=== PATIENT | male | born 1955 | race Caucasian/White ===

== ENCOUNTER 2019-11-28 15:12 | Outpatient (CLI) | payer OTHER, SELFPAY ==
--- NOTE | ~2019-11-28 | US_ITS ---
EXAMINATION: US thyroid EXAM DATE: 11/28/2019 16:13 INDICATION: Thyroid nodule follow-up. TECHNIQUE: Multiple grayscale and Doppler images of the thyroid were obtained (by a technologist who performed the scan) and subsequently reviewed. Individual nodules and recommendations may be reporte d in accordance with TI-RADS system as designated by the 2017 ACR White Paper TI-RADS committee. Comp silviano is made to prior examination from 04/22/2019. FINDINGS: The right thyroid lobe measures 5.5 x 2.5 x 2.2 cm, the left measuring 4.2 x 1.8 x 1.7 cm. These dime nsions are mildly enlarged. There is diffusely heterogeneous thyroid echogenicity. There are several thyroid nodules, largest in the left side. Largest left thyroid lobe nodule is hypervascular, in lower pole measures 1.8 x 1.3 x 1.5 centimeters , solid (2 points), hypoechoic (2 points), wider than tall, smooth margin, without echogenic foci, ca tegory TR4 for this nodule. Previous dimensions provided at 1.7 x 1.7 x 1.3, not significantly thompson ed accounting for differences in technique. This nodule was previously biopsied, correlate with those results. IMPRESSION: 1. Multinodular goiter, unchanged. 2. Largest left thyroid nodule has been previously biopsied. Reviewed, dictated and finalized at location A.
== END 2019-11-28 15:13 | disposition home or self-care (01) ==
PROVIDERS: PCP Emergency Medicine
DX: E04.2 Nontoxic multinodular goiter (principal)
CPT/HCPCS: 76536

== ENCOUNTER → 2020-02-27 08:37 | Outpatient (CLI) | payer OTHER, SELFPAY ==
--- NOTE | ~2020-02-27 | XR_ITS ---
EXAMINATION: XR_CERV2-3V_CR DATE: 02/27/2020 08:46 INDICATION: Neck pain. TECHNIQUE: 3 views of cervical spine were obtained. COMPARISON: CT cervical spine 04/03/2019 FINDINGS: There is 4 degrees dextrocurvature of cervical spine. Vertebral body heights are normal. Th ere is moderately decreased disc height at C6-C7. At C6-C7, there is severe right and mild left uncov ertebral joint osteoarthritis. At C4-C5, there is moderate left uncovertebral joint osteoarthritis. T here is severe facet joint osteoarthritis at C7-T1. There is mild central canal stenosis at C6-C7. No prevertebral soft tissue swelling. IMPRESSION: 1. Stable moderate cervical spondylosis. Reviewed, dictated and finalized at location B.
== END ==
PROVIDERS: PCP Emergency Medicine; Visit Provider Emergency Medicine
DX: M47.892 Other spondylosis, cervical region (principal)
CPT/HCPCS: 72040

== ENCOUNTER → 2020-03-19 14:59 | Outpatient (CLI) | payer OTHER, SELFPAY ==
--- NOTE | ~2020-03-19 | MR_ITS ---
EXAMINATION: MR cervical spine wo con DATE: 03/19/2020 15:42 INDICATION: Neck pain. TECHNIQUE: Magnetic resonance imaging (MRI) of the cervical spine was performed without intravenous c ontrast. Sequences included sagittal T2-weighted FSE, sagittal STIR FSE, sagittal T1-weighted FSE, ax ial MERGE, and axial T2-weighted FSE. COMPARISON: Cervical spine radiographs 02/27/2020 FINDINGS: There is 3 degrees dextrocurvature of cervical spine. Vertebral body heights are normal. Th ere is mildly decreased disc height at C6-C7. The spinal cord signal intensity is normal. There are n odules in the thyroid measuring up to 14 mm, likely not clinically significant. The following disc le vels are specifically discussed: C2-C3: The disc does not extend beyond the endplate margin. There is no uncovertebral joint osteoarth ritis. There is mild bilateral facet joint osteoarthritis. There is no neural foraminal stenosis. The re is no central canal stenosis. C3-C4: The disc is bulging. There is mild bilateral uncovertebral joint osteoarthritis. There is mild right and severe left facet joint osteoarthritis. There is mild left neural foraminal stenosis. Ther e is mild central canal stenosis. C4-C5: The disc is bulging. There is mild bilateral uncovertebral joint osteoarthritis. There is mild bilateral facet joint osteoarthritis. There is no neural foraminal stenosis. There is mild central c anal stenosis. C5-C6: The disc is bulging. There is mild bilateral uncovertebral joint osteoarthritis. There is mild bilateral facet joint osteoarthritis. There is no neural foraminal stenosis. There is mild central c anal stenosis. C6-C7: The disc is bulging and has an annular fissure. There is mild bilateral uncovertebral joint os teoarthritis. There is no facet joint osteoarthritis. There is no neural foraminal stenosis. There is mild central canal stenosis. C7-T1: The disc does not extend beyond the endplate margin. There is no uncovertebral joint osteoarth ritis. There is severe bilateral facet joint osteoarthritis. There is mild right neural foraminal liset nosis. There is no central canal stenosis. IMPRESSION: 1. Mild cervical spondylosis. Reviewed, dictated and finalized at location A.
== END ==
PROVIDERS: PCP Emergency Medicine; Visit Provider Nurse Practitioner Adult Health
DX: M47.22 Other spondylosis with radiculopathy, cervical region (principal)
CPT/HCPCS: 72141

== ENCOUNTER → 2020-04-06 13:41 | Outpatient (CLI) | payer OTHER, SELFPAY ==
--- NOTE | ~2020-04-06 | MR_ITS ---
. EXAMINATION: MR lumbar spine wo con DATE: 04/06/2020 14:11 INDICATION: Low back pain. TECHNIQUE: Magnetic resonance imaging (MRI) of the lumbar spine was performed without intravenous con trast. Sequences included sagittal T2-weighted FSE, sagittal T2-weighted FS FSE, sagittal T1-weighted FSE, and axial T2-weighted FSE. COMPARISON: None FINDINGS: There is 3 degrees levocurvature of lumbar spine. There is 3 mm retrolisthesis of L4 on L5. There is mild chronic anterior wedging of T11 and T12 vertebral bodies. There is mildly decreased di sc height at L2-L3 and severely decreased disc height at L4-L5 and L5-S1. The distal spinal cord sign al intensity is normal. The conus medullaris is at T12-L1. There is a 2.9 cm cyst in left kidney. The following disc levels are specifically discussed: L1-L2: The disc does not extend beyond the endplate margin. There is mild left facet joint osteoarthr itis. There is no neural foraminal stenosis. There is no central canal stenosis. L2-L3: The disc is bulging. There is mild left facet joint osteoarthritis. There is mild bilateral ne ural foraminal stenosis. There is mild central canal stenosis. L3-L4: The disc is bulging and has an annular fissure. There is severe right and moderate left facet joint osteoarthritis. There is mild bilateral neural foraminal stenosis. There is mild central canal stenosis. L4-L5: The disc is bulging and has an annular fissure. There is moderate left facet joint osteoarthri tis. There is mild bilateral neural foraminal stenosis. There is mild central canal stenosis. L5-S1: The disc is bulging and has an annular fissure. There is mild bilateral facet joint osteoarthr itis. There is mild bilateral neural foraminal stenosis. There is mild central canal stenosis. IMPRESSION: 1. Severe lumbar spondylosis. Reviewed, dictated and finalized at location A.
== END ==
PROVIDERS: Visit Provider Nurse Practitioner Adult Health
DX: M47.896 Other spondylosis, lumbar region (principal)
CPT/HCPCS: 72148

== ENCOUNTER 2020-04-28 15:36 | Emergency (ER) | payer OTHER, SELFPAY ==
--- NOTE | ~2020-04-28 | CT_ITS ---
EXAMINATION: CT brain wo con INDICATION: Headache COMPARISON: 04/01/2019 TECHNIQUE: Standard unenhanced head CT. The dose-length product (DLP) was 605.33 mGy-cm. The mA was a djusted according to patient size. Iterative reconstruction technique was employed. FINDINGS: There is no intracranial hemorrhage, acute infarction, or abnormal mass lesion. The ventric les are normal. There is no abnormal mass effect or midline shift. The restrepo-white matter differentiat ion is normal. The basal cisterns are patent. The orbits are normal. The paranasal sinuses, mastoids and calvarium are normal. IMPRESSION: 1. No acute intracranial abnormality. Reviewed, dictated and finalized at location A.
[2020-04-28 16:11] VITALS: BP 172/87; PULSE 70; RESP 18; TEMP 36.7; O2SAT 98
--- NOTE | 2020-04-28 17:40 | ED.HA ---
HPI - Headache General Chief Complaint: Headache Stated Complaint: throbbing pain in head . Time Seen by Provider: 04/28/20 17:40 Source: patient and family Mode of arrival: ambulatory Limitations: no limitations History of Present Illness HPI Narrative: Patient is a 64-year-old male with a history of hyperlipidemia who presents for evaluation of right-sided headache pain. Patient reports an intermittently throbbing sensation over his right ear that is mild in nature. Patient does report some increased pain with chewing that he has noticed. He denies any ear ringing, loss of hearing, ear pain or discharge. No visual changes, eye tearing or watering. No forehead headache or posterior headache pain. Patient denies any numbness or weakness. Patient states he can reproduce the pain when he presses on that location above his right ear. He denies any chest pain or shortness of breath. No shoulder pain. No back pain. Related Data Allergies Allergy/AdvReac Type Severity Reaction Status Date / Time No Known Allergies Allergy Verified 04/28/20 17:33 Review of Systems Review of Systems: Narrative: CONSTITUTIONAL: Denies fever, chills, or sweats. EYES: Denies visual changes, redness, or discharge. ENT: Denies rhinorrhea, congestion, sore throat, or otalgia. CARDIOVASCULAR: Denies chest pain, palpitations, or edema. RESPIRATORY: Denies cough or dyspnea. GASTROINTESTINAL: Denies abdominal pain, nausea, vomiting SKIN: Denies rash or itching. MUSCULOSKELETAL: Denies back pain, joint pain, or myalgia. NEUROLOGIC: Reports right-sided headache pain, denies numbness, or weakness. FOR[facility]LY [facility] Past Medical History Medical History (Updated 04/28/20 @ 19:46 by Marina Best MD) HLD (hyperlipidemia) Social History Social History Smoking status: Never smoker Second hand tobacco smoke exposure: No Alcohol intake: current Exam Narrative: Exam Narrative: GENERAL: Awake, alert, conversant HEAD: Normocephalic, atraumatic. EYES: PERRLA and EOMI. ENT: Nares clear, no rhinorrhea or epistaxis. Mucous membranes moist. NECK: Supple. CHEST: No respiratory distress, breathing even and non labored HEART: Regular rate, sinus rhythm ABDOMEN:Non distended, non tender EXTREMITIES: Normal range of motion. No edema. SKIN: Warm, dry, no rash. NEURO:No focal deficits. Alert and oriented x3. EOMs intact without nystagmus. No facial droop/asymmetry noted bilaterally. Grimace intact. Intact sensation in face. Hearing intact bilaterally. Shoulder shrug intact. Strength 5/5 bilateral upper extremities. Strength 5/5 bilateral lower extremities.AMbulatory with a narrow based steady gait. Course Vital Signs Vital signs: Vital Signs Temperature 36.7 C 04/28/20 16:11 Pulse Rate 70 04/28/20 16:11 Respiratory Rate 18 04/28/20 16:11 Blood Pressure 172/87 H 04/28/20 16:11 Pulse Oximetry 98 04/28/20 16:11 Temperature 36.7 C 04/28/20 16:11 Pulse Rate 50 L 04/28/20 19:07 Respiratory Rate 18 04/28/20 19:07 Blood Pressure 172/97 H 04/28/20 19:07 Pulse Oximetry 99 04/28/20 19:07 MDM - Headache MDM Narrative Medical decision making narrative: Patient presented for evaluation of headache pain. At the time of assessment, pain is reproducible on pressing on the right restorationism. No overlying erythema. No pulsations. Patient without any anginal type symptoms. Laboratory results including inflammatory markers are reassuring. This will be less consistent with temporal arteritis. Given location and quality of the pain, he would definitely require a biopsy to rule this out and I did speak with his primary care physician regarding this. Patient's blood pressure is also mildly elevated, I am not quite certain that reproducible right-sided temporal headache pain could be caused by hypertension, he does not appear to be having other symptoms that are concerning for hypertensive crisis or ur
[2020-04-28 18:30] LABS: Basophils Absolute Auto 0.1 K/mm3 (0.0-0.1); Basophils Percent Auto 0.6 % (0.2-1.2); Eosinophils Absolute Auto 0.3 K/mm3 (0-0.3); Eosinophils Percent Auto 2.7 % (0-4.4); Hematocrit 44.7 % (42.0-52.0); Hemoglobin 14.9 g/dL (14.0-18.0); Immature Granulocyte Absolute 0.04 K/mm3 (0.00-0.031); Immature Granulocyte Percent A 0.4 % (0-0.5); Lymphocytes Absolute Auto 2.83 K/mm3 (0.9-3.2); Lymphocytes Percent Auto 29.9 % (18.3-44.2); Mean Corpuscular HGB Conc 33.3 g/dl (32-36); Mean Corpuscular Hemoglobin 30.1 pg (26-34); Mean Corpuscular Volume 90.3 fl (80-100); Monocytes Absolute Auto 0.6 K/mm3 (0.1-0.6); Monocytes Percent Auto 6.1 % (2.6-8.5); Neutrophils Absolute Auto 5.7 K/mm3 (1.3-6.7); Neutrophils Percent Auto 60.3 % (45.5-73.1); Platelet Count Result 249 k/mm3 (150-375); Red Blood Count 4.95 M/mm3 (4.6-6.20); Red Cell Distribution Width 12.2 % (11.5-14.5); White Blood Count 9.5 K/mm3 (4.5-10.0)
[2020-04-28 18:41] LABS: Anion Gap 7 mmol/L (8-16); Blood Urea Nitrogen 16 mg/dL (9-20); Calcium 9.1 mg/dL (8.4-10.2); Carbon Dioxide 27 mmol/L (22-30); Chloride 104 mmol/L (98-107); Estimated CRCL calculation 113 ml/min; Estimated Glomerular Filt Rate > 60; Glucose 100 mg/dL (75-110); Potassium 4.4 mmol/L (3.4-5.0); Sodium 138 mmol/L (137-145)
[2020-04-28 18:55] LABS: Erythrocyte Sedimentation Rate 2 mm/hr (0-20)
[2020-04-28 19:07] VITALS: BP 172/97; PULSE 50; RESP 18; O2SAT 99
[2020-04-28 19:08] LABS: CRP 0.5 mg/dL (<1.0)
[2020-04-28 19:57] VITALS: BP 170/82; PULSE 51; RESP 16; TEMP 36.6; O2SAT 100
== END 2020-04-28 20:00 | disposition home or self-care (01) ==
PROVIDERS: Emergency Provider Emergency Medicine; PCP Emergency Medicine
DX: R51.9 Headache, unspecified (principal); E78.5 Hyperlipidemia, unspecified
CPT/HCPCS: 36415; 70450; 80048; 85025; 85652; 86140; 99284

== ENCOUNTER → 2020-06-06 07:32 | Outpatient (CLI) | payer OTHER, SELFPAY ==
--- NOTE | ~2020-06-06 | US_ITS ---
EXAMINATION: US carotid duplex BI EXAM DATE: 06/06/2020 08:06 INDICATION: R09.89 - Other specified symptoms and signs involving the circulatory and respiratory sys tems . States pressure and pulse sedation on right side of head temporal area. Feet numbness and ting ling. TECHNIQUE: Grayscale, color and pulsed Doppler images of the cervical carotid arteries were obtained . The degree of vessel stenosis is placed in one of the following categories: normal, <50% stenosis, 50-69% stenosis, >=70% stenosis but less than near-occlusion, near-occlusion, or occlusion. Note that percent stenosis relative to normal distal artery lumen diameter is indirectly measured from velocit y measurements as described by Dung, et al. Radiology 2003; 229:340-346. There is no prior study fo r comparison. FINDINGS: RIGHT SIDE: Right common carotid artery peak systolic velocity (PSV in cm/s): 190 Right bulb/internal carotid artery peak systolic velocity (PSV in cm/s): 74 Right internal carotid artery end diastolic velocity (EDV in cm/s): 18 Right ICA/CCA peak systolic ratio: 0.4 Right external carotid artery peak systolic velocity (PSV in cm/s): 128 Right vertebral artery antegrade flow: yes There is no focal plaque identified. LEFT SIDE: Left common carotid artery peak systolic velocity (PSV in cm/s): 126 Left bulb/internal carotid artery peak systolic velocity (PSV in cm/s): 104 Left internal carotid artery end diastolic velocity (EDV in cm/s): 25 Left ICA/CCA peak systolic ratio: 0.8 Left external carotid artery peak systolic velocity (PSV in cm/s): 168 Left vertebral artery antegrade flow: yes There is no focal plaque identified. IMPRESSION: 1. Normal right internal carotid artery. 2. Normal left internal carotid artery. > Reviewed, dictated and finalized at location A. [employer]ING [employer]PER[employer]
== END ==
PROVIDERS: Visit Provider Emergency Medicine
DX: R09.89 Other specified symptoms and signs involving the circulatory and respiratory systems (principal)
CPT/HCPCS: 93880

== ENCOUNTER 2020-11-09 20:36 | Emergency (ER) | payer OTHER, SELFPAY ==
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
[2020-11-09 20:39] VITALS: BP 167/78; PULSE 99; RESP 15; TEMP 35.9; O2SAT 100
[2020-11-09 22:29] VITALS: BP 144/82; PULSE 88; RESP 18; TEMP 36.7; O2SAT 100
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
--- NOTE | 2020-11-09 22:40 | PC.NURSE ---
Pt to CT.
--- NOTE | 2020-11-09 22:59 | ECG_ITS ---
Measurements Intervals [place] Rate: 72 P: 55 FL: 177 QRS: 19 QRSD: 114 T: 43 QT: 380 QTc: 416 Interpretive Statements SINUS RHYTHM INCOMPLETE RIGHT BUNDLE BRANCH BLOCK VOLTAGE CRITERIA FOR LVH CONSIDER INFERIOR INFARCT, AGE INDETERMINATE BASELINE ARTIFACT- I, II, III, AVR, AVL, AVF ABNORMAL ECG Electronically Signed On 11-10-2020 6:54:09 CDT by Nathan Medina D.O.
[2020-11-09] MEDS: ONDANSETRON INJ 4 MG/2 ML VIAL IV PUSH (23:39)
[2020-11-09] MEDS: MORPHINE SULFATE (*CRX) 4 MG/ML INJ IV PUSH (23:40)
[2020-11-09] MEDS: TETANUS,DIPHTHERIA,AC PERTUSSIS ADULT (0.5 ML) BOOSTRIX IM (23:44)
[2020-11-10] VITALS: BP 144/84; PULSE 88; RESP 18; TEMP 36.5; O2SAT 98
[2020-11-10 00:10] LABS: Basophils Absolute Auto 0.1 K/mm3 (0.0-0.1); Basophils Percent Auto 0.3 % (0.2-1.2); Eosinophils Percent Auto 0.3 % (0-4.4); Hematocrit 43.6 % (42.0-52.0); Hemoglobin 14.6 g/dL (14.0-18.0); Immature Granulocyte Absolute 0.07 K/mm3 (0.00-0.031); Immature Granulocyte Percent A 0.4 % (0-0.5); Lymphocytes Absolute Auto 2.17 K/mm3 (0.9-3.2); Lymphocytes Percent Auto 13.6 % (18.3-44.2); Mean Corpuscular HGB Conc 33.5 g/dl (32-36); Mean Corpuscular Hemoglobin 29.7 pg (26-34); Mean Corpuscular Volume 88.6 fl (80-100); Mean Platelet Volume 10.1 fl (7.4-10.4); Monocytes Absolute Auto 0.8 K/mm3 (0.1-0.6); Neutrophils Absolute Auto 12.8 K/mm3 (1.3-6.7); Neutrophils Percent Auto 80.4 % (45.5-73.1); Platelet Count Result 290 k/mm3 (150-375); Red Blood Count 4.92 M/mm3 (4.6-6.20); Red Cell Distribution Width 11.9 % (11.5-14.5); White Blood Count 15.9 K/mm3 (4.5-10.0)
[2020-11-10 00:17] LABS: Add Urine Microscopic? YES; Appearance Urine Cloudy (Clear); Bilirubin Urine Negative (Negative); Blood Urine Negative (Negative); Color Urine Yellow (Yellow); Glucose Urine UA Negative (Negative); Ketones Urine Negative (Negative); Leukocyte Esterase Ur Negative LEU/UL (Negative); Mucus Urine Few /lpf; Nitrate Urine Negative (Negative); Protein Urine 1+ mg/dL (Negative); RBC Urine 0-2 /hpf (0-2); Specific Grav Ur 1.026 (1.001-1.035); Urobilinogen Urine Negative mg/dL (<2.0); WBC Urine 0-3 /hpf
[2020-11-10 00:18] LABS: Alanine Aminotransferase 26 U/L (4-50); Albumin Level 4.6 g/dL (3.5-5.1); Alkaline Phosphatase 90 U/L (38-126); Anion Gap 6 mmol/L (8-16); Aspartate Amino Transferase 30 U/L (17-59); Blood Urea Nitrogen 22 mg/dL (9-20); Calcium 9.9 mg/dL (8.4-10.2); Carbon Dioxide 33 mmol/L (22-30); Chloride 101 mmol/L (98-107); Estimated CRCL calculation 80 ml/min; Estimated Glomerular Filt Rate > 60; Glucose 102 mg/dL (75-110); Potassium 4.1 mmol/L (3.4-5.0); Sodium 140 mmol/L (137-145)
[2020-11-10 02:24] VITALS: BP 153/73; PULSE 58; RESP 18; O2SAT 98
[2020-11-10] MEDS: CEPHALEXIN 500 MG CAPSULE PO (02:31)
== END 2020-11-10 02:48 | disposition home or self-care (01) ==
PROVIDERS: Emergency Provider Emergency Medicine; PCP Emergency Medicine
DX: S30.0XXA Contusion of lower back and pelvis, initial encounter (principal); S61.222A Laceration with foreign body of right middle finger without damage to nail, initial encounter; I71.2 Thoracic aortic aneurysm, without rupture; Z23 Encounter for immunization; I10 Essential (primary) hypertension; E03.9 Hypothyroidism, unspecified; E78.5 Hyperlipidemia, unspecified; M19.041 Primary osteoarthritis, right hand; M17.10 Unilateral primary osteoarthritis, unspecified knee; N28.89 Other specified disorders of kidney and ureter; M47.814 Spondylosis without myelopathy or radiculopathy, thoracic region; M47.812 Spondylosis without myelopathy or radiculopathy, cervical region; R94.31 Abnormal electrocardiogram [ECG] [EKG]; I45.10 Unspecified right bundle-branch block; V18.4XXA Pedal cycle driver injured in noncollision transport accident in traffic accident, initial encounter
CPT/HCPCS: 36415; 70450; 71260; 72070; 72125; 73120; 74177; 80053; 81001; 85025; 90471; 90715; 93005; 96374; 96375; 99284; A9270; J2270; J2405; Q9967

== ENCOUNTER → 2020-11-12 15:16 | Outpatient (CLI) | payer OTHER, SELFPAY ==
--- NOTE | ~2020-11-12 | CT_ITS ---
EXAMINATION: CT abdomen wo/w con DATE: 11/12/2020 15:54 INDICATION: Right renal mass TECHNIQUE: Computed tomography (CT) of the abdomen and pelvis was performed without and with 100 mL O mnipaque-350 intravenous contrast. Automated exposure control and iterative reconstruction technique were employed. The dose-length product was 1327.55 mGy-cm. COMPARISON: CT dated 11/10/2020 FINDINGS: Minimal dependent atelectasis in the bilateral lower lobes. Borderline heart size. No pericardial or pleural effusion. Liver, gallbladder, spleen, pancreas and bilateral adrenal glands are normal. 1.6 x 1.0 cm exophytic enhancing mass at the lateral aspect of the lower pole of the right kidney concerni ng for renal cell carcinoma. Fluid attenuation nonenhancing parenchymal and parapelvic cysts at the l eft kidney measuring up to 2.9 cm and 3.3 cm in maximal diameters respectively. 2 mm nonobstructing s tone at the lower pole of the right kidney. Small fat-containing umbilical hernia. Large amount of st ool scattered throughout the visualized colon. No bowel obstruction. No pathologically enlarged abdom inal lymphadenopathy. Chronic mild anterior wedging at T9-T11. Moderate lower thoracic and severe low er lumbar spondylosis. There are bridging osteophytes at multiple levels in the spine, consistent wit h diffuse idiopathic skeletal hyperostosis (DISH). IMPRESSION: 1. 1.5 cm enhancing right renal mass consistent with renal cell carcinoma. Recommend urologic consult ation. 2. 2 mm nonobstructing right renal stone. Reviewed, dictated and finalized at location A. IMPRESSION: 1. 1.5 cm enhancing right renal mass consistent with renal cell carcinoma. Chris mmend urologic consultation. 2. 2 mm nonobstructing right renal stone.
[2020-11-12 15:43] LABS: Estimated Glomerular Filt Rate > 60
== END ==
PROVIDERS: PCP Emergency Medicine; Visit Provider Emergency Medicine
DX: N28.89 Other specified disorders of kidney and ureter (principal); N20.0 Calculus of kidney
CPT/HCPCS: 74170; Q9967

== ENCOUNTER → 2020-11-20 08:24 | Outpatient (CLI) | payer OTHER, SELFPAY ==
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
== END ==
PROVIDERS: PCP Emergency Medicine; Visit Provider Emergency Medicine
DX: S09.90XD Unspecified injury of head, subsequent encounter (principal); X58.XXXD Exposure to other specified factors, subsequent encounter
CPT/HCPCS: 70450

== ENCOUNTER → 2020-12-24 15:08 | Outpatient (CLI) | payer OTHER, SELFPAY ==
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
== END ==
PROVIDERS: PCP Emergency Medicine; Visit Provider Emergency Medicine
DX: S69.90XA Unspecified injury of unspecified wrist, hand and finger(s), initial encounter (principal); X58.XXXA Exposure to other specified factors, initial encounter
CPT/HCPCS: 73218

== ENCOUNTER 2020-12-27 13:49 | Emergency (ER) | payer OTHER, SELFPAY ==
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
[2020-12-27 13:48] VITALS: BP 162/87; PULSE 85; RESP 12; TEMP 36.7; O2SAT 97
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
--- NOTE | 2020-12-27 14:23 | PC.NURSE ---
Pt off floor to CT via cart
[2020-12-27 14:34] LABS: Estimated CRCL calculation 67 ml/min; Estimated Glomerular Filt Rate > 60
[2020-12-27] MEDS: fentaNYL CITRATE INJ (*CRX) 100 MCG/2 ML VIAL 50 MCG IV PUSH (14:54)
[2020-12-27 15:23] LABS: Basophils Absolute Auto 0.1 K/mm3 (0.0-0.1); Basophils Percent Auto 0.6 % (0.2-1.2); Eosinophils Absolute Auto 0.2 K/mm3 (0-0.3); Eosinophils Percent Auto 2.6 % (0-4.4); Hematocrit 42.3 % (42.0-52.0); Hemoglobin 13.6 g/dL (14.0-18.0); Immature Granulocyte Absolute 0.05 K/mm3 (0.00-0.031); Immature Granulocyte Percent A 0.6 % (0-0.5); Lymphocytes Absolute Auto 1.99 K/mm3 (0.9-3.2); Lymphocytes Percent Auto 22.4 % (18.3-44.2); Mean Corpuscular HGB Conc 32.2 g/dl (32-36); Mean Corpuscular Hemoglobin 29.2 pg (26-34); Mean Corpuscular Volume 90.8 fl (80-100); Mean Platelet Volume 9.9 fl (7.4-10.4); Monocytes Absolute Auto 0.5 K/mm3 (0.1-0.6); Monocytes Percent Auto 6.1 % (2.6-8.5); Neutrophils Percent Auto 67.7 % (45.5-73.1); Platelet Count Result 239 k/mm3 (150-375); Red Blood Count 4.66 M/mm3 (4.6-6.20); Red Cell Distribution Width 12.2 % (11.5-14.5); White Blood Count 8.9 K/mm3 (4.5-10.0)
[2020-12-27 15:26] LABS: Add Urine Microscopic? YES; Appearance Urine Clear (Clear); Bilirubin Urine Negative (Negative); Blood Urine Negative (Negative); Color Urine Yellow (Yellow); Glucose Urine UA Negative (Negative); Ketones Urine Negative (Negative); Leukocyte Esterase Ur Negative LEU/UL (Negative); Mucus Urine Rare /lpf; Nitrate Urine Negative (Negative); Protein Urine 1+ mg/dL (Negative); RBC Urine 0-2 /hpf (0-2); Urobilinogen Urine Negative mg/dL (<2.0); WBC Urine 0-3 /hpf
[2020-12-27 15:28] LABS: Specific Grav Ur 1.059 (1.001-1.035)
[2020-12-27 15:33] LABS: Alanine Aminotransferase 17 U/L (4-50); Albumin Level 4.1 g/dL (3.5-5.1); Alkaline Phosphatase 84 U/L (38-126); Anion Gap 8 mmol/L (8-16); Aspartate Amino Transferase 24 U/L (17-59); Bilirubin,Total 0.8 mg/dL (0.2-1.3); Blood Urea Nitrogen 23 mg/dL (9-20); Calcium 9.4 mg/dL (8.4-10.2); Carbon Dioxide 31 mmol/L (22-30); Chloride 101 mmol/L (98-107); Estimated CRCL calculation 80 ml/min; Estimated Glomerular Filt Rate > 60; Glucose 94 mg/dL (75-110); Lipase 52 U/L (23-300); Partial Thromboplastin Time 29.9 SECONDS (22.3-36.8); Prothrombin Time 14.1 Seconds (11.1-14.7); Sodium 140 mmol/L (137-145)
[2020-12-27 15:58] VITALS: BP 160/81; PULSE 65; RESP 12; O2SAT 99
[2020-12-27] MEDS: LIDOCAINE HCL 1% LOCAL INJ 20 ML VIAL INFILTRATE (16:42)
[2020-12-27] MEDS: HYDROcodone/acetaminophen (*CRX) 5-325 MG TABLET 1 TAB PO (16:42)
[2020-12-27 17:52] VITALS: BP 174/70; PULSE 63; RESP 16; O2SAT 100
== END 2020-12-27 17:56 | disposition home or self-care (01) ==
PROVIDERS: Emergency Provider Emergency Medicine; PCP Emergency Medicine
DX: S92.511A Displaced fracture of proximal phalanx of right lesser toe(s), initial encounter for closed fracture (principal); S39.012A Strain of muscle, fascia and tendon of lower back, initial encounter; S09.90XA Unspecified injury of head, initial encounter; M17.10 Unilateral primary osteoarthritis, unspecified knee; E78.5 Hyperlipidemia, unspecified; I10 Essential (primary) hypertension; E03.9 Hypothyroidism, unspecified; E04.9 Nontoxic goiter, unspecified; N28.89 Other specified disorders of kidney and ureter; M47.812 Spondylosis without myelopathy or radiculopathy, cervical region; N20.0 Calculus of kidney; N40.0 Benign prostatic hyperplasia without lower urinary tract symptoms; V13.4XXA Pedal cycle driver injured in collision with car, pick-up truck or van in traffic accident, initial encounter
CPT/HCPCS: 28515; 28600; 70450; 71260; 72125; 73630; 74177; 80053; 81001; 83690; 85025; 85610; 85730; 96374; 99284; 99285; A9270; J3010; Q9967

== ENCOUNTER → 2020-12-29 12:57 | Outpatient (CLI) | payer OTHER, SELFPAY ==
--- NOTE | ~2020-12-29 | XR_ITS ---
XR_[id number]_CR DATE: 12/29/2020 14:25 INDICATION: Right chest pain. Pleurodynia. TECHNIQUE: PA chest. 3 views of right ribs. 3 views of left ribs. COMPARISON: None FINDINGS: No pulmonary infiltrate or consolidation, pleural effusion or pulmonary vascular congestion or pneumothorax. The cardiac and mediastinal silhouettes are unremarkable. No hilar or mediastinal e nlargement. Osteopenia. There is diffuse idiopathic skeletal hyperostosis of the thoracic spine. No left or right rib fracture or bone destruction is evident. IMPRESSION: No active cardiopulmonary disease Osteopenia No rib fracture or bone destruction is evident Diffuse idiopathic skeletal hyperostosis of the thoracic spine Reviewed, dictated and finalized at Location A. Reviewed, dictated and finalized at location A.
== END ==
PROVIDERS: PCP Emergency Medicine; Visit Provider Emergency Medicine
DX: R07.81 Pleurodynia (principal); M85.88 Other specified disorders of bone density and structure, other site
CPT/HCPCS: 71111

== ENCOUNTER 2021-01-21 08:06 | Outpatient (CLI) | payer OTHER, SELFPAY ==
--- NOTE | ~2021-01-21 | US_ITS ---
EXAMINATION: US art doppler w doc FORD EXAM DATE: 01/21/2021 08:59 INDICATION: I73.9 - Peripheral vascular disease, unspecified PVD . TECHNIQUE: Segmental pressures and plethysmographic and Doppler waveforms of the brachial and lower e xtremity arteries were obtained. There is no prior study for comparison. FINDINGS: Right and left brachial artery pressures of 149 mm Hg and 151 mm Hg, respectively, are concordant (no rmal difference <= 30 mmHg). The right and left thigh-brachial pressure indices are 1.29, 1.28, resp ectively (normal > 1.2). RIGHT LEG: The ankle-brachial index (DANNY) is 1.09 (normal >= 0.9-1). The great toe-brachial index (TBI) is 0.66 (normal >= 0.65). The lower extremity ratios, segmental pressure gradients as follows; Proximal superficial femoral artery:- 1.29 (195 mmHg). Distal superficial femoral artery: ----- 1.25 (189 mmHg). Popliteal: 1.07 (161 mmHg). Dorsalis pedis: 0.95 (144 mmHg). Posterior tibial: 1.09 (164 mmHg). (Normal gradients <= 20-30 mmHg between adjacent levels on the same leg or the same levels on the two legs). Arterial waveforms are mostly biphasic. LEFT LEG: The ankle-brachial index (DANNY) is 1.23 (normal >= 0.9-1). The great toe-brachial index (TBI) is 0.95 (normal >= 0.65). The lower extremity ratios, segmental pressure gradients as follows; Proximal superficial femoral artery:- 1.28 (193 mmHg). Distal superficial femoral artery: ----- 1.28 (193 mmHg). Popliteal: 1.39 (210 mmHg). Dorsalis pedis: 1.09 (165 mmHg). Posterior tibial: 1.23 (185 mmHg). (Normal gradients <= 20-30 mmHg between adjacent levels on the same leg or the same levels on the two legs). Arterial waveforms are mostly biphasic. IMPRESSION: 1. Right ankle-brachial index 1.09, normal. 2. Left ankle-brachial index 1.23, normal. 3. Segmental pressures as above. Reviewed, dictated and finalized at location B.
== END 2021-01-21 08:07 | disposition home or self-care (01) ==
PROVIDERS: PCP Emergency Medicine; Visit Provider Orthopaedic Surgery
DX: I73.9 Peripheral vascular disease, unspecified (principal)
CPT/HCPCS: 93923

== ENCOUNTER 2021-04-10 08:35 | Outpatient (CLI) | payer OTHER, SELFPAY ==
--- NOTE | ~2021-04-10 | MR_ITS ---
EXAMINATION: MR cervical spine wo con EXAM DATE: 04/10/2021 09:58 INDICATION: M54.12 - Radiculopathy, cervical region. TECHNIQUE: Multi-sequential, multiplanar MR images of the cervical spine were obtained without contra st. Axial T2, axial T2 MERGE sequence. Sagittal T1, T2, T2 fat saturation images also obtained. Com parison is made to prior examination from 03/19/2020. FINDINGS: Mild to moderate loss of the disc height at C6-7, mild at the other mid cervical levels. T he vertebral bodies are aligned in the AP dimension. The spinal cord signal intensity and intrinsic m orphology is normal. Cervicomedullary junction is normal in appearance. There are no suspicious marro w signal abnormalities. Level by level evaluation: C2-C3: Disc does not extend beyond the endplate margin. Uncovertebral joint arthropathy: None. Facet joint arthropathy: Mild to moderate bilateral. Neural foraminal stenosis: No stenosis. Central canal stenosis: No stenosis. C3-C4: There is a minimal diffuse disc bulge. Uncovertebral joint arthropathy: Mild to moderate left, mild right. Facet joint arthropathy: Moderate left, mild to moderate right. Neural foraminal stenosis: Mild left. Central canal stenosis: No stenosis. C4-C5: There is a mild diffuse disc bulge. Uncovertebral joint arthropathy: Mild to moderate bilateral. Facet joint arthropathy: Moderate bilateral. Neural foraminal stenosis: No stenosis. Central canal stenosis: Minimal. C5-C6: There is a mild diffuse disc bulge. Uncovertebral joint arthropathy: Mild to moderate bilateral. Facet joint arthropathy: Moderate bilateral. Neural foraminal stenosis: No stenosis. Central canal stenosis: Minimal. C6-C7: There is a mild diffuse disc bulge. Uncovertebral joint arthropathy: Moderate bilateral. Facet joint arthropathy: Mild bilateral. Neural foraminal stenosis: No stenosis. Central canal stenosis: Minimal. C7-T1: Disc does not extend beyond the endplate margin. Uncovertebral joint arthropathy: Moderate left, mild right. Facet joint arthropathy: Moderate right, mild to moderate left. Neural foraminal stenosis: Mild left. Central canal stenosis: No stenosis. There is no significant interval change. IMPRESSION: Up to moderate cervical arthropathy. No significant stenosis. Reviewed, dictated and finalized at location A.
--- NOTE | ~2021-04-10 | MR_ITS ---
EXAMINATION: MR shoulder LT wo con DATE: 04/10/2021 09:58 INDICATION: Left shoulder pain TECHNIQUE: Magnetic resonance imaging (MRI) of the left shoulder was performed without intravenous co ntrast. Sequences included axial PD-weighted FS FSE, coronal oblique PD-weighted FS FSE, coronal obli que T2-weighted FS FSE, sagittal PD-weighted FS FSE, and sagittal T1-weighted SE. COMPARISON: None. FINDINGS: Coracoacromial arch: The acromion undersurface is curved in morphology (type II). The coracoacromial ligament is normal. M ild acromioclavicular osteoarthritis. Rotator cuff: Mild supraspinatus, infraspinatus and subscapularis tendinopathy without discrete tear. The teres min or tendon is normal. Normal rotator cuff muscle bulk and signal. Biceps tendon, glenoid labrum and glenohumeral cartilage: Full-thickness tear of the long head biceps tendon which is retracted below the level of the intertub ercular groove. There is laxity of the intra-articular portion of the long head biceps tendon which i ncrease at the rotator cuff interval. There is degeneration of the inferior and posterior inferior gl enoid labrum which appears diminutive and partially replaced by marginal osteophyte arising from the inferior glenoid. Mild partial-thickness cartilage loss along the cephalad half of the glenoid with s mooth chondral surface. Additional small marginal osteophytes at the base of the superior glenoid lab rum. Fluid: Physiologic amount of fluid in the glenohumeral joint and biceps tendon sheath. No loose osteochondra l bodies. Small amount of fluid in the subacromial/subdeltoid bursa consistent with mild bursitis. Bones: Normal marrow signal with no edema, fracture or Abnormal marrow replacing process. IMPRESSION: 1. Mild supraspinatus, infraspinatus and subscapularis tendinopathy without discrete tear. 2. Complete tear of the long head biceps tendon. 3. Mild glenohumeral osteoarthritis with degeneration of the diminutive inferior and posterior inferi or glenoid labrum which is been largely replaced by marginal osteophyte. 4. Mild acromioclavicular osteoarthritis with mild underlying subacromial/subdeltoid bursitis. Reviewed, dictated and finalized at location A. IMPRESSION: 1. Mild supraspinatus, infraspinatus and subscapularis tendinopathy without dis crete tear. 2. Complete tear of the long head biceps tendon. 3. Mild glenohumeral osteoarthritis with degeneration of the diminutive inferio r and posterior inferior glenoid labrum which is been largely replaced by boni nal osteophyte. 4. Mild acromioclavicular osteoarthritis with mild underlying subacromial/subde ltoid bursitis.
== END 2021-04-10 08:36 | disposition home or self-care (01) ==
PROVIDERS: PCP Emergency Medicine; Visit Provider Emergency Medicine
DX: M54.12 Radiculopathy, cervical region (principal); M19.012 Primary osteoarthritis, left shoulder; S46.112A Strain of muscle, fascia and tendon of long head of biceps, left arm, initial encounter; X58.XXXA Exposure to other specified factors, initial encounter
CPT/HCPCS: 72141; 73221

== ENCOUNTER → 2021-08-16 15:24 | Outpatient (CLI) | payer OTHER, SELFPAY ==
--- NOTE | ~2021-08-16 | US_ITS ---
EXAMINATION: US carotid duplex BI EXAM DATE: 08/16/2021 15:57 INDICATION: R09.89 - Other specified symptoms and signs involving the... Visual abnormality. Vertigo. TECHNIQUE: Grayscale, color and pulsed Doppler images of the cervical carotid arteries were obtained . The degree of vessel stenosis is placed in one of the following categories: normal, <50% stenosis, 50-69% stenosis, >=70% stenosis but less than near-occlusion, near-occlusion, or occlusion. Note that percent stenosis relative to normal distal artery lumen diameter is indirectly measured from velocit y measurements as described by Dung, et al. Radiology 2003; [id number]:[id number]. Comparison is made to prior examination from 06/06/2020. FINDINGS: RIGHT SIDE: Right common carotid artery peak systolic velocity (PSV in cm/s): 122 Right bulb/internal carotid artery peak systolic velocity (PSV in cm/s): 94 Right internal carotid artery end diastolic velocity (EDV in cm/s): 31 Right ICA/CCA peak systolic ratio: 1.4 Right external carotid artery peak systolic velocity (PSV in cm/s): 96 Right vertebral artery antegrade flow: yes There is no focal plaque identified. LEFT SIDE: Left common carotid artery peak systolic velocity (PSV in cm/s): 125 Left bulb/internal carotid artery peak systolic velocity (PSV in cm/s): 98 Left internal carotid artery end diastolic velocity (EDV in cm/s): 23 Left ICA/CCA peak systolic ratio: 1.5 Left external carotid artery peak systolic velocity (PSV in cm/s): 95 Left vertebral artery antegrade flow: yes There is no focal plaque identified. IMPRESSION: 1. Normal right internal carotid artery. 2. Normal left internal carotid artery. Reviewed, dictated and finalized at location G. MACY DIRECTOR
== END ==
PROVIDERS: PCP Emergency Medicine; Visit Provider Emergency Medicine
DX: R09.89 Other specified symptoms and signs involving the circulatory and respiratory systems (principal)
CPT/HCPCS: 93880

== ENCOUNTER 2021-10-25 13:33 | Emergency (ER) | payer OTHER, SELFPAY ==
[2021-10-25 13:44] VITALS: BP 140/67; PULSE 64; RESP 18; TEMP 36.6; O2SAT 99
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
== END 2021-10-25 14:13 | disposition home or self-care (01) ==
PROVIDERS: Emergency Provider Nurse Practitioner Family; PCP Emergency Medicine
DX: S81.832A Puncture wound without foreign body, left lower leg, initial encounter (principal); W54.0XXA Bitten by dog, initial encounter; I10 Essential (primary) hypertension; E78.00 Pure hypercholesterolemia, unspecified; E03.9 Hypothyroidism, unspecified; E78.2 Mixed hyperlipidemia; G47.33 Obstructive sleep apnea (adult) (pediatric); M17.12 Unilateral primary osteoarthritis, left knee; I73.9 Peripheral vascular disease, unspecified; M17.0 Bilateral primary osteoarthritis of knee; E55.9 Vitamin D deficiency, unspecified; Z85.53 Personal history of malignant neoplasm of renal pelvis
CPT/HCPCS: 99213; G0463

== ENCOUNTER → 2021-12-22 15:19 | Outpatient (CLI) | payer OTHER, SELFPAY ==
--- NOTE | ~2021-12-22 | CT_ITS ---
EXAMINATION: CT abdomen pelvis wo con DATE: 12/22/2021 15:38 INDICATION: Abdominal pain. Right flank pain. History of cryoablation of right kidney. TECHNIQUE: Computed tomography (CT) of the abdomen and pelvis was performed without intravenous contr ast. Automated exposure control and iterative reconstruction technique were employed. Exam dose: 115 1.54 mGy-cm total exam DLP. COMPARISON: 12/27/2020 CT chest abdomen pelvis FINDINGS: The lung bases are clear. Mild cardiomegaly. No pericardial or pleural effusion. Small sliding hiatal hernia. Normal morphology of the adrenal glands. The liver, spleen, pancreas appear unremarkable on this limi deepak noncontrast examination. The gallbladder is contracted. No bile duct or pancreatic duct dilatatio n. There is irregularity of the lateral aspect of the mid to lower right kidney with up to approximately 11 mm area of hypoattenuation, corresponding to a prior 1.5 cm hyperdense exophytic 1.5 cm mass note d on 11/10/2020 CT examination, presumably the area subsequently subjected to cryoablation. Approximately 3 cm upper pole left renal cyst and parapelvic cysts. No urinary tract calculus or hydroureteronephrosis. There is prostate enlargement. The urinary bladder is unremarkable. There is atherosclerotic calcification but normal caliber of the abdominal aorta. No intraperitoneal or retroperitoneal or pelvic mass lesion or adenopathy or ascites. Bilateral small fat-containing inguinal hernias. Normal appendix. There is a prominent amount fecal material in the 1.9 x 1.9 cm fat-containing umbili prudencio hernia. Rectum and colon but no evidence of bowel obstruction. No intraperitoneal free air. Diffuse idiopathic skeletal hyperostosis of the thoracic spine. Degenerative change of the lumbar spine including moderately severe degenerative disc disease at L4-5 and severe degenerative disc disease at L5-S1. IMPRESSION: No urinary tract calculus or hydroureteronephrosis is evident Left renal cysts Focal irregularity and hypoattenuation and lateral mid to lower right kidney, presumably area of prio r cryoablation Small sliding hiatal hernia Prostate enlargement Reviewed, dictated and finalized at [facility]. Reviewed, dictated and finalized at [facility]. IMPRESSION: No urinary tract calculus or hydroureteronephrosis is evident Left renal cysts Focal irregularity and hypoattenuation and lateral mid to lower right kidney, p resumably area of prior cryoablation Small sliding hiatal hernia Prostate enlargement
== END ==
PROVIDERS: PCP Emergency Medicine; Visit Provider Emergency Medicine
DX: R10.9 Unspecified abdominal pain (principal); N28.1 Cyst of kidney, acquired; K44.9 Diaphragmatic hernia without obstruction or gangrene; N40.0 Benign prostatic hyperplasia without lower urinary tract symptoms
CPT/HCPCS: 74176

== ENCOUNTER 2021-12-28 13:46 | Emergency (ER) | payer OTHER, SELFPAY ==
--- NOTE | ~2021-12-28 | XR_ITS ---
EXAMINATION: XR foot RT min 3V DATE: 12/28/2021 14:06 INDICATION: Lateral right foot pain TECHNIQUE: Dorsoplantar, two oblique and lateral views of the right foot were obtained. COMPARISON: 01/27/2021 FINDINGS: Old healed fracture deformities at the proximal metaphyseal regions of the right fourth and fifth pro ximal phalanges which have healed in near-anatomic alignment. Mild clumping of the second-fifth toes. No acute fracture. Mild polyarticular osteoarthritis at the first metatarsophalangeal and a few tars al metatarsal and interphalangeal joints. No erosions or periosteal reaction. Persistent soft tissue swelling about the dorsal and lateral aspects of the distal forefoot. IMPRESSION: 1. Old healed fractures at the right fourth and fifth proximal phalanges. No acute osseous abnormalit y. Reviewed, dictated and finalized at [facility]. IMPRESSION: 1. Old healed fractures at the right fourth and fifth proximal phalanges. No [place] osseous abnormality.
[2021-12-28 13:50] VITALS: BP 156/77; PULSE 64; RESP 16; TEMP 36.4; O2SAT 98
--- NOTE | 2021-12-28 13:52 | ED.LOWEXIN ---
HPI - Extremity Injury (Lower) General Chief Complaint: Extremity Problem,Nontraumatic Stated Complaint: right foot pain Time Seen by Provider: 12/28/21 13:53 Source: patient, RN notes reviewed and old records reviewed Mode of arrival: ambulatory Limitations: no limitations History of Present Illness HPI Narrative: 66-year-old male presents to the [facility] with right lateral foot pain. Patient reports pain started approximately 2 weeks ago. Patient reports that he was walking through a parking lot when he felt a pop and a sharp pain in the same area today. Came in for an x-ray. Tenderness along the fifth metatarsal. No bruising noted. Also concerned about poison lachelle. Has poison lachelle in the right antecubital, linear vesicular lesions Related Data Home Medications Medication Instructions Recorded Confirmed atorvastatin 10 mg tablet 40 mg PO DAILY 10/25/21 12/28/21 gabapentin 300 mg capsule 300 mg PO BID 12/03/21 12/28/21 irbesartan 150 mg tablet 300 mg PO DAILY 12/03/21 12/28/21 clonidine HCl 0.2 mg tablet 0.2 mg PO DAILY 12/28/21 12/28/21 Allergies Allergy/AdvReac Type Severity Reaction Status Date / Time No Known Allergies Allergy Verified 12/28/21 13:50 Review of Systems Review of Systems: All systems reviewed & are unremarkable except as noted in HPI and below Constitutional: Constitutional: Reports no additional constitutional complaints, Denies chills and Denies fever(s) Eyes: Eyes: Reports no additional eye complaints ENT: Reports system reviewed and no additional complaints, except as documented Cardiovascular: Cardiovascular: Reports no additional cardiovascular complaints Respiratory: Respiratory: Reports no additional respiratory complaints Gastrointestinal: Gastrointestinal: Reports no additional gastrointestinal complaints Musculoskeletal: Musculoskeletal: Reports as per HPI Integumentary/Breasts: Skin/Breast: Reports as per HPI and Reports rash Neurologic: Reports system reviewed and no additional complaints, except as documented Psychiatric: Psychiatric: Reports no additional psychiatric complaints Allergic/Immunologic: Allergic/Immunologic: Reports no additional allergic/immunologic complaints PMFSH Past Medical History Medical History Abdominal pain Acute midline low back pain without sciatica Acute rhinosinusitis Arthritis of shoulder region, left Benign paroxysmal positional vertigo due to bilateral vestibular disorder Bilateral carotid bruits Body mass index [BMI] 27.0-27.9, adult (10/08/15) Body mass index [BMI] 28.0-28.9, adult (11/23/15) Body mass index [BMI] 29.0-29.9, adult (07/08/16) Body mass index [BMI] 30.0-30.9, adult (03/31/17) Body mass index [BMI] 31.0-31.9, adult (09/07/17) Cervical spondylosis with radiculopathy Chest pain Chronic pain of left knee Chronic pain of right knee Constipation Cough Degenerative joint disease of knee Dependence on other enabling machines and devices THOMPSON (dyspnea on exertion) Effusion, left knee Essential (primary) hypertension Flank pain Headaches due to old head injury High cholesterol HLD (hyperlipidemia) Hypertension Hypothyroidism (acquired) Hypothyroidism, unspecified Insomnia, unspecified IT band syndrome Lateral meniscal tear Mixed hyperlipidemia Neck pain Olecranon bursitis, right elbow Onychomycosis due to dermatophyte BRYAN (obstructive sleep apnea) BRYAN on CPAP Osteoarthritis of left knee Other chronic pain Other hyperlipidemia Other tear of lateral meniscus, current injury, right knee, initial encounter Peripheral arterial disease Polyneuropathy Pressure sensation in left ear Primary osteoarthritis of right knee Renal cell carcinoma 1.5 cm right kidney mass Right forearm pain Right otitis media Right wrist pain Ringing in left ear Screening PSA (prostate specific antigen) Sleep apnea Sore throat Subconjunctival hemorrhage of left eye Testicular hypofun
[2021-12-28 13:56] VITALS: BP 156/77; PULSE 64; RESP 16; TEMP 36.4; O2SAT 98
== END 2021-12-28 14:43 | disposition home or self-care (01) ==
PROVIDERS: Emergency Provider Nurse Practitioner; PCP Emergency Medicine
DX: M79.671 Pain in right foot (principal); M19.071 Primary osteoarthritis, right ankle and foot; L25.5 Unspecified contact dermatitis due to plants, except food; I10 Essential (primary) hypertension; E78.00 Pure hypercholesterolemia, unspecified; E78.5 Hyperlipidemia, unspecified; E03.9 Hypothyroidism, unspecified; G47.33 Obstructive sleep apnea (adult) (pediatric); I73.9 Peripheral vascular disease, unspecified; Z85.528 Personal history of other malignant neoplasm of kidney
CPT/HCPCS: 73630; 99213; G0463

== ENCOUNTER 2022-01-04 14:33 | Outpatient (RCR) | payer OTHER, SELFPAY ==
[2022-01-04 14:40] VITALS: BMI 32.3
== END 2022-03-29 09:46 | disposition home or self-care (01) ==
LOC: ANHDMC 14:33
PROVIDERS: PCP Emergency Medicine; Visit Provider Emergency Medicine
DX: R63.5 Abnormal weight gain (principal); Z71.3 Dietary counseling and surveillance
CPT/HCPCS: 97802

== ENCOUNTER → 2022-01-25 07:06 | Outpatient (CLI) | payer OTHER, SELFPAY ==
--- NOTE | ~2022-01-25 | MR_ITS ---
EXAMINATION: MR foot RT wo con DATE: 01/25/2022 07:42 INDICATION: Right foot pain TECHNIQUE: Magnetic resonance imaging (MRI) of the right foot excluding the toes was performed withou t intravenous contrast. Sequences included sagittal T1-weighted FSE, sagittal fluid sensitive FSE STI R, coronal PD-weighted FS FSE, coronal T1-weighted FSE, axial PD-weighted FS FSE, and axial PD-weight ed FSE. COMPARISON: Right foot radiographs dated FINDINGS: Medial ankle ligaments: Deep and superficial deltoid ligaments as well as the spring ligament are normal. Lateral ankle ligaments: The anterior and posterior inferior tibiofibular ligaments are normal. The calcaneofibular ligament i s thickened consistent with scarring related to chronic sprain.. Chronic nonunited avulsion fracture at the anterior tip of the lateral malleolus which includes the footplate of the anterior talofibular ligament and a portion of the footplate of the posterior talofibular ligament. There is a longitudin al split tear of the fibular side of the ligament with the more posterior portion attached to the pos terior margin of the lateral malleolus which remains contiguous with the more proximal fibula. There is also a longitudinal split tear of the anterior talofibular ligament with tiny heterotopic ossicle along the ligament likely sequela of chronic sprain. Mid/forefoot ligaments: The Lis Franc ligament complex is normal. The sinus Tarsi is normal with normal appearing cervical an d interosseous talocalcaneal ligaments. Tendons: Achilles tendon is normal. There is mild tendinopathy without discrete tear of the peroneus brevis te ndon distal to the tip of the lateral malleolus. Severe tendinopathy and partial-thickness tear near the plantar first metatarsal insertion of the peroneus longus tendon. There is completion of the tear at the level of the peroneal groove along the plantar margin of the cuboid with approximately 2 cm r etraction of the more proximal tendon which includes an os peroneus. Likely secondary reactive edema along the inferior margin of the cuboid. The os peroneus is now located along the distal margin of th e groove of the peroneus longus tendon along the lateral calcaneus. There is prominent marrow edema b oth of the os peroneus as well as of the peroneal trochlea which likely related to impingement withou t evident fracture line. There is a second fusiform region of moderate tendinopathy along the more pr oximal peroneus tendon likely originally at the level of the inferior margin of the retromalleolar gr oove but now similarly retracted 2 cm more proximally. The tibialis anterior and extensor hallucis lo ngus and extensor digitorum longus tendons are normal. The tibialis posterior, flexor digitorum longu s and flexor hallucis longus tendons are normal. Plantar fascia: Mild thickening without increased signal at the proximal aspect of the medial and lateral components of the plantar aponeurosis consistent with likely chronic enthesopathy. Bones/other: Mild osteoarthritis with at the tarsal metatarsal joints with minimal subarticular edema at the first tarsal metatarsal joint.. No fracture or pathologic marrow replacing process. Fluid: Physiologic amount of fluid in the joint space. Fluid extending along the peroneal tendon sheath cons istent with mild tenosynovitis. IMPRESSION: 1. Peroneal tenosynovitis with severe tendinopathy and full-thickness tear of the peroneus longus ten don distal to an os peroneus which along with the proximal tendon is retracted 2 cm proximally likely impacting upon the trochlear process at the lateral calcaneus where there is secondary reactive preethi a. 2. Stigmata of chronic lateral ankle injury including mild scarring of the calcaneofibular ligament a nd chronic nonunited fracture at the tip of the lateral malleolus which is attached the anterior talo fi
== END ==
PROVIDERS: PCP Emergency Medicine; Visit Provider Emergency Medicine
DX: S93.691A Other sprain of right foot, initial encounter (principal); X58.XXXA Exposure to other specified factors, initial encounter
CPT/HCPCS: 73718

== ENCOUNTER 2022-02-25 17:53 | Emergency (ER) | payer OTHER, SELFPAY ==
--- NOTE | 2022-02-25 18:08 | ED.EYEPROB ---
HPI - Eye Problem General Chief complaint: Eye Problems Stated complaint: Left Eye Pain Time Seen by Provider: 02/25/22 18:22 Source: patient and RN notes reviewed Mode of arrival: ambulatory Limitations: no limitations History of Present Illness HPI Narrative: 66-year-old male presents with concern for redness to the left eye. He denies pain, injury, vision changes. He reports drainage, his eye was crusted shut this morning. He reports several forceful sneezes last night. He reports headache yesterday however reports he gets similar headaches frequently he reports small mount of pressure feeling in the left eye. He reports that over the past several months he has had decrease in his vision. He denies any new vision changes. MD chief complaint: eye redness Related Data Home Medications Medication Instructions Recorded Confirmed atorvastatin 10 mg tablet 40 mg PO DAILY 10/25/21 02/25/22 irbesartan 150 mg tablet 300 mg PO DAILY 12/03/21 02/25/22 Allergies Allergy/AdvReac Type Severity Reaction Status Date / Time No Known Allergies Allergy Verified 01/18/22 13:53 Review of Systems Review of Systems: CONSTITUTIONAL: Denies malaise, chills, sweats, or fever. EYES: Denies left eye visual changes. Reports left eye redness, discharge. ENT: Denies rhinorrhea, congestion, sinus pain, otalgia or sore throat. SKIN: Denies rash or itching. NEUROLOGIC: Denies numbness, weakness. Reports headache yesterday PSYCHIATRIC: Denies anxiety or depression. All systems reviewed & are unremarkable except as noted in HPI and below [facility] Past Medical History Medical History (Updated 02/25/22 @ 18:29 by Maryuri Prather NP) Abdominal pain Acute midline low back pain without sciatica Acute rhinosinusitis Arthritis of shoulder region, left Benign paroxysmal positional vertigo due to bilateral vestibular disorder Bilateral carotid bruits Body mass index [BMI] 27.0-27.9, adult (10/08/15) Body mass index [BMI] 28.0-28.9, adult (11/23/15) Body mass index [BMI] 29.0-29.9, adult (07/08/16) Body mass index [BMI] 30.0-30.9, adult (03/31/17) Body mass index [BMI] 31.0-31.9, adult (09/07/17) Cervical spondylosis with radiculopathy Chest pain Chronic pain of left knee Chronic pain of right knee Constipation Cough Degenerative joint disease of knee Dependence on other enabling machines and devices THOMPSON (dyspnea on exertion) Effusion, left knee Essential (primary) hypertension Flank pain Headaches due to old head injury High cholesterol HLD (hyperlipidemia) Hypertension Hypothyroidism (acquired) Hypothyroidism, unspecified Insomnia, unspecified IT band syndrome Lateral meniscal tear Mixed hyperlipidemia Neck pain Olecranon bursitis, right elbow Onychomycosis due to dermatophyte BRYAN (obstructive sleep apnea) BRYAN on CPAP Osteoarthritis of left knee Other chronic pain Other hyperlipidemia Other tear of lateral meniscus, current injury, right knee, initial encounter Peripheral arterial disease Peroneal tendinitis of right lower extremity Polyneuropathy Pressure sensation in left ear Primary osteoarthritis of right knee Renal cell carcinoma 1.5 cm right kidney mass Right forearm pain Right otitis media Right wrist pain Ringing in left ear Screening PSA (prostate specific antigen) Sleep apnea Sore throat Subconjunctival hemorrhage of left eye Testicular hypofunction Thyroid goiter Thyroid nodule Vitamin D deficiency Surgical History Surgical History History of arthroscopy of right knee History of kidney surgery Cryoablation renal cell carcinoma History of laminectomy Family History Family History Father Kidney malignancy Social History Social History Social History: Patient exercises 6-12 hours per week. Smoking status: Never smoker Second hand tobacco smoke e
[2022-02-25 18:19] VITALS: BP 158/70; PULSE 61; RESP 16; TEMP 36.4; O2SAT 97
== END 2022-02-25 18:36 | disposition home or self-care (01) ==
PROVIDERS: Emergency Provider Nurse Practitioner; PCP Emergency Medicine
DX: H11.32 Conjunctival hemorrhage, left eye (principal); I10 Essential (primary) hypertension; E78.00 Pure hypercholesterolemia, unspecified; E78.5 Hyperlipidemia, unspecified; E03.9 Hypothyroidism, unspecified; I73.9 Peripheral vascular disease, unspecified; M19.012 Primary osteoarthritis, left shoulder; M17.11 Unilateral primary osteoarthritis, right knee; Z85.528 Personal history of other malignant neoplasm of kidney
CPT/HCPCS: 99213; G0463

== ENCOUNTER → 2022-07-13 15:12 | Outpatient (CLI) | payer OTHER, SELFPAY ==
--- NOTE | ~2022-07-13 | US_ITS ---
Thyroid ultrasound. Clinical History: Multinodular goiter COMPARISON: 11/28/2019 Findings: Real-time sonography of the thyroid gland was performed. The right lobe measures 4.6 x 2.3 x 1.7 cm. The left lobe measures 3.3 x 1.4 x 1.1 cm. The isthmus is 3 mm in AP diameter. At the left lower pole, there is a 1.5 x 0.9 x 1.5 cm hypoechoic solid, wider than tall circumscribed nodule. Impression: Left lower pole thyroid nodule is similar to prior exam given differences in imaging technique. Relat annamaria stability over this time interval is compatible with benignity. Reviewed, dictated and finalized at location . [employer] Impression: Left lower pole thyroid nodule is similar to prior exam given differences in im aging technique. Relative stability over this time interval is compatible with benignity.
== END ==
PROVIDERS: PCP Emergency Medicine; Visit Provider Emergency Medicine
DX: R93.89 Abnormal findings on diagnostic imaging of other specified body structures (principal)
CPT/HCPCS: 76536

== ENCOUNTER → 2022-09-22 08:13 | Outpatient (CLI) | payer BC, SELFPAY ==
--- NOTE | ~2022-09-22 | XR_ITS ---
Supine and upright views of the abdomen Clinical history: Abdominal pain Findings: Bowel gas pattern is nonspecific. No evidence for obstruction or free air. No abnormal mass lesion or calcification is seen. Osseous structures are intact. Impression: No significant abnormality is seen. Reviewed, dictated and finalized at [facility]. [employer] Impression: No significant abnormality is seen.
== END ==
PROVIDERS: PCP Emergency Medicine; Visit Provider Internal Medicine Nephrology
DX: M54.9 Dorsalgia, unspecified (principal)
CPT/HCPCS: 74018

== ENCOUNTER 2022-10-20 14:38 | Outpatient (RCR) | payer BC, SELFPAY ==
[2022-10-20 15:02] VITALS: BMI 31.2
== END 2022-10-26 12:24 | disposition home or self-care (01) ==
LOC: ANHDMC 14:38
PROVIDERS: PCP Emergency Medicine; Visit Provider Emergency Medicine
DX: R63.5 Abnormal weight gain (principal); Z71.3 Dietary counseling and surveillance
CPT/HCPCS: 97802

== ENCOUNTER 2023-04-01 17:09 | Emergency (ER) | payer BC, SELFPAY ==
--- NOTE | ~2023-04-01 | XR_ITS ---
EXAMINATION: XR elbow RT min 3V DATE: 04/01/2023 17:47 INDICATION: Laceration to the right elbow post fall TECHNIQUE: Anteroposterior, two oblique and lateral views of the right elbow were obtained. COMPARISON: Right forearm radiographs dated 06/09/2015 FINDINGS: Alignment is normal. No fracture or joint effusion. Right elbow joint spaces are relatively preserved with tiny marginal osteophytes along the proximal ulna consistent with minimal osteoarthritis. A few small enthesopathic ossicles at the distal triceps tendon with small olecranon enthesophyte at its u lnar insertion. A few tiny densities likely representing foreign debris along a laceration posterior to the olecranon. IMPRESSION: 1. No acute osseous abnormality. 2. A few tiny densities likely representing foreign debris along a laceration posterior to the olecra non. Reviewed, dictated and finalized at location A. IMPRESSION: 1. No acute osseous abnormality. 2. A few tiny densities likely representing foreign debris along a laceration p osterior to the olecranon.
[2023-04-01 17:24] VITALS: BP 165/74; PULSE 77; RESP 14; TEMP 36.6; O2SAT 100
[2023-04-01 17:26] VITALS: BP 165/74; PULSE 77; RESP 14; TEMP 36.6; O2SAT 100
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
== END 2023-04-01 19:21 | disposition home or self-care (01) ==
PROVIDERS: Emergency Provider Nurse Practitioner Family; PCP Emergency Medicine
DX: S51.011A Laceration without foreign body of right elbow, initial encounter (principal); S81.011A Laceration without foreign body, right knee, initial encounter; V18.4XXA Pedal cycle driver injured in noncollision transport accident in traffic accident, initial encounter; Y93.55 Activity, bike riding; M19.011 Primary osteoarthritis, right shoulder; M47.22 Other spondylosis with radiculopathy, cervical region; I10 Essential (primary) hypertension; E78.00 Pure hypercholesterolemia, unspecified; E05.90 Thyrotoxicosis, unspecified without thyrotoxic crisis or storm; E03.9 Hypothyroidism, unspecified; E78.2 Mixed hyperlipidemia; G47.33 Obstructive sleep apnea (adult) (pediatric); I73.9 Peripheral vascular disease, unspecified; M17.0 Bilateral primary osteoarthritis of knee; Z85.528 Personal history of other malignant neoplasm of kidney; Z79.82 Long term (current) use of aspirin
CPT/HCPCS: 12032; 73080; 99213; G0463

== ENCOUNTER → 2023-04-26 14:46 | Outpatient (CLI) | payer BC, SELFPAY ==
--- NOTE | ~2023-04-26 | US_ITS ---
US thyroid INDICATION: Thyroid goiter TECHNIQUE: Real-time sonographic images of the thyroid gland were obtained. COMPARISON: No prior studies for comparison. FINDINGS: The right thyroid lobe measures 4.7 x 1.7 x 1.6 cm. The left thyroid lobe measures 3.4 x 1 .9 x 1.8 cm. There is normal vascularity in the in the thyroid gland. There are bilateral thyroid nod ules with heterogeneous echotexture. Largest discrete mass mass in the right lobe is solid, hypoechoi c, wider than tall, smoothly marginated without echogenic foci measuring 9 x 7 x 5 mm, TR 4. Largest mass in the left lobe is solid, oval, hypoechoic, wider than tall, smoothly marginated without echoge augusta foci measuring 12 x 10 x 10 mm, TR 4. IMPRESSION: 1. Bilateral thyroid nodules which are likely benign. These do not meet sonographic criteria for bio psy. Recommend follow-up ultrasound in 12 months. Reviewed, dictated and finalized at location B. IMPRESSION: 1. Bilateral thyroid nodules which are likely benign. These do not meet sonogr aphic criteria for biopsy. Recommend follow-up ultrasound in 12 months.
== END ==
PROVIDERS: PCP Emergency Medicine; Visit Provider Internal Medicine
DX: E04.2 Nontoxic multinodular goiter (principal)
CPT/HCPCS: 76536

== ENCOUNTER 2023-09-22 07:46 | Outpatient (CLI) | payer BC, SELFPAY ==
--- NOTE | ~2023-09-22 | US_ITS ---
EXAMINATION: US thyroid DATE: 09/22/2023 08:15 INDICATION: Multinodular goiter. TECHNIQUE: Multiple ultrasound images of the thyroid were obtained. COMPARISON: Thyroid ultrasound 04/26/2023 FINDINGS: The right thyroid lobe measures 4.1 x 1.8 x 1.6 cm. The left thyroid lobe measures 3.3 x 1.4 x 1.3 c m. The thyroid demonstrates diffusely heterogeneous echogenicity. Vascularity is increased. The left thyroid lobe, there is a 9 mm solid, isoechoic, wider than tall nodule with ill-defined margin witho ut echogenic foci (TR4). In the left thyroid lobe, there is a 9 mm solid, isoechoic, wider than tall nodule with ill-defined margin without echogenic foci (TR4). IMPRESSION: 1. Heterogeneous, hypervascular thyroid, likely chronic lymphocytic (Dk) thyroiditis. 2. Small thyroid nodules, likely not clinically significant. No follow-up is needed. Reviewed, dictated and finalized at location E. 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 Heterogeneous, hypervascular thyroid, likely chronic lymphocytic (Dk) thyroiditis. 2. Small thyroid nodules, likely not clinically significant. No follow-up is ne eded.
== END 2023-09-22 07:47 ==
LOC: MICIMG 07:47
PROVIDERS: PCP Internal Medicine; Visit Provider Internal Medicine
DX: E04.2 Nontoxic multinodular goiter (principal)
CPT/HCPCS: 76536

== ENCOUNTER 2024-01-27 08:16 | Emergency (ER) | payer BC, SELFPAY ==
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
[2024-01-27 08:27] VITALS: BP 148/66; PULSE 62; RESP 16; TEMP 36.6; O2SAT 98
[2024-01-27 08:29] VITALS: BP 148/66; PULSE 62; RESP 16; TEMP 36.6; O2SAT 98
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
== END 2024-01-27 09:35 | disposition home or self-care (01) ==
PROVIDERS: Emergency Provider Nurse Practitioner; PCP Emergency Medicine
DX: S52.125A Nondisplaced fracture of head of left radius, initial encounter for closed fracture (principal); V18.4XXA Pedal cycle driver injured in noncollision transport accident in traffic accident, initial encounter; I10 Essential (primary) hypertension; E78.00 Pure hypercholesterolemia, unspecified; E78.5 Hyperlipidemia, unspecified; E03.9 Hypothyroidism, unspecified; E05.90 Thyrotoxicosis, unspecified without thyrotoxic crisis or storm; E78.2 Mixed hyperlipidemia; G47.33 Obstructive sleep apnea (adult) (pediatric); I73.9 Peripheral vascular disease, unspecified; Z85.528 Personal history of other malignant neoplasm of kidney
CPT/HCPCS: 29105; 73070; 73090; 99214; A4565; G0463

== ENCOUNTER 2024-09-27 08:29 | Emergency (ER) | payer BC, SELFPAY ==
[2024-09-27 08:39] VITALS: BP 152/70; PULSE 72; RESP 20; TEMP 37.2; O2SAT 97
--- NOTE | 2024-09-27 08:45 | ED_ITS ---
HPI - URI/Sore Throat General Chief Complaint: Upper Respiratory Infection Stated Complaint: Strep Throat Time Seen by Provider: 09/27/24 08:45 Source: patient Mode of arrival: ambulatory Limitations: no limitations History of Present Illness HPI Narrative: Juan is a 69-year-old male patient presenting to the clinic today with complaints of sore throat, runny nose, cough, and drainage going down his throat. He reports symptoms have been going on for 2 days. States he has had a low-grade fever. Also reporting some tightness in his hamstrings. He just recently got back from a trip and walked about 9 miles. MD elicited complaint: fever, cough, sore throat and nasal congestion Related Data Home Medications ?Medication ?Instructions ?Recorded ?Confirmed ?Last Taken ?Type aspirin 81 mg tablet,delayed 81 mg PO DAILY 01/24/23 07/25/24 Unknown History release (Adult Low Dose Aspirin) armodafinil 150 mg tablet 75 mg PO QAM PRN 05/13/24 07/25/24 Unknown History eszopiclone 2 mg tablet 2 mg PO QHS 07/25/24 07/25/24 Unknown History valsartan 80 mg tablet 80 mg PO BID 07/25/24 07/25/24 Unknown History atorvastatin 40 mg tablet (Lipitor) 40 mg PO DAILY 09/16/24 Unknown History amlodipine 5 mg tablet (Norvasc) 5 mg PO DAILY 09/18/24 Unknown History Allergies Allergy/AdvReac Type Severity Reaction Status Date / Time clonidine Allergy Intermediate low pulse Verified 09/27/24 08:50 house dust mite Allergy Intermediate sinus Verified 09/27/24 08:50 drainage gabapentin AdvReac Intermediate Hyperactive Verified 09/27/24 08:50 metoprolol AdvReac Intermediate Hypotension Verified 09/27/24 08:50 Review of Systems Review of Systems: Pertinent positives per HPI. Patient denies any rash, headache, visual changes, dizziness, shortness of breath, chest pain, palpitations, nausea, vomiting, diarrhea, constipation, abdominal pain, or any urinary issues. [facility] Past Medical History Medical History Left hamstring muscle strain Left knee DJD HLD (hyperlipidemia) Sprain of right foot Disorder of the skin and subcutaneous tissue, unspecified Peroneal tendinitis of right lower extremity Right foot strain Insomnia Sinus congestion HTN (hypertension) Right flank pain Vitamin D2 deficiency Bilateral carotid bruits Acute midline low back pain without sciatica Acute rhinosinusitis Benign paroxysmal positional vertigo due to bilateral vestibular disorder Body mass index [BMI] 27.0-27.9, adult (10/08/15) Body mass index [BMI] 28.0-28.9, adult (11/23/15) Body mass index [BMI] 29.0-29.9, adult (07/08/16) Body mass index [BMI] 30.0-30.9, adult (03/31/17) Body mass index [BMI] 31.0-31.9, adult (09/07/17) Chronic pain of left knee Chronic pain of right knee Constipation Cough THOMPSON (dyspnea on exertion) Dependence on other enabling machines and devices Essential (primary) hypertension Flank pain Hypothyroidism, unspecified Insomnia, unspecified Mixed hyperlipidemia BRYAN on CPAP Olecranon bursitis, right elbow Osteoarthritis of left knee Other chronic pain Other hyperlipidemia Other tear of lateral meniscus, current injury, right knee, initial encounter Pressure sensation in left ear Primary osteoarthritis of right knee Right forearm pain Right otitis media Right wrist pain Ringing in left ear Sore throat Subconjunctival hemorrhage of left eye Testicular hypofunction Thyroid nodule Vitamin D deficiency Hyperthyroidism Wears glasses Arthritis of shoulder region, left Cervical spondylosis with radiculopathy Shoulder pain Cervical radiculopathy Polyneuropathy Onychomycosis due to dermatophyte Renal cell carcinoma 1.5 cm right kidney mass Abdominal pain High cholesterol Sleep apnea BRYAN (obstructive sleep apnea) Peripheral arterial disease Toe fracture, right Rib pain Hand pain Hand injury Aortic aneurysm Head injury Right kidney mass Skin lesion IT band syndrome Effusion, left knee Degenerative joint disease of knee Bilateral carotid bruits Headaches due to old head injury Chest pain Hypertension Neck pain Thyroid goiter Hypothyroidism (acquired) Screening PSA (prostate specific antigen) HLD (hyperlipidemia) Lateral meniscal tear Surgical History Surgical History History of kidney surgery Cryoablation renal cell carcinoma History of arthroscopy of right knee History of laminectomy Family History Family History Father Kidney malignancy Mother Broken heart syndrome Sibling OD on pain killers from untreated back injury. Sibling No problems noted. Social History Social History Social History: Patient exercises 6-12 hours per week. 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 There is no relevant family history pertinent to the patient complaint. Exam Narrative: General: Well-developed, well nourished, in no apparent distress Head: Normocephalic, atraumatic Eyes: Pupils equally round and reactive to light bilaterally, EOM intact, sclera and conjunctive clear, no discharge, lids normal Ears: TMs intact and clear, ear canals clear, no drainage, grossly hearing normal. Nose: Nares patent, clear nasal discharge, mild inflammation, no sinus tenderness. Mouth: Oral pharynx without lesions or masses, good dentition, MMM. Postnasal drip Neck: Supple, trachea midline, no enlargement of anterior or posterior cervical nodes, no thyroid masses or goiter palpable. Cardio: Regular rate and rhythm, s1 and s2 normal, no murmur appreciated. Resp: Clear to auscultation bilaterally, no rhonchi, rales, wheezing or rubs Course Course Emergency Course: Portions of this record may have been created with voice recognition software. Level of Care: Express Care Visit Vital Signs Vital signs: Vital Signs Temperature 37.2 C 09/27/24 08:39 Pulse Rate 72 09/27/24 08:39 Respiratory Rate 20 09/27/24 08:39 Blood Pressure 152/70 H 09/27/24 08:39 Pulse Oximetry 97 09/27/24 08:39 Oxygen Delivery Room Air 09/27/24 08:39 Temperature 37.2 C 09/27/24 08:39 Pulse Rate 72 09/27/24 08:39 Respiratory Rate 20 09/27/24 08:39 Blood Pressure 152/70 H 09/27/24 08:39 Pulse Oximetry 97 09/27/24 08:39 Oxygen Delivery Room Air 09/27/24 08:39 Vital signs reviewed MDM - URI/Sore Throat MDM Narrative Medical decision making narrative: At the time of visit patient is resting comfortably on the exam table. Patient appears to be nontoxic. Labs: COVID, influenza, and strep test were performed all testing was negative. We will send strep for culture. Plan: I suspect patient has URI/postnasal drip. Prescription for prednisone was sent to the pharmacy. Supportive measures were discussed with the patient and they voiced understanding discharge instructions and agrees to treatment plan. Return precautions reviewed Differential Diagnosis Differential diagnosis: Likely upper respiratory infection, otitis media, sinusitis, viral infection, bronchitis, influenza, pharyngitis and other (COVID) Discharge Plan Discharge Clinical Impression: PND (post-nasal drip) URI (upper respiratory infection) Qualifiers: URI type: unspecified URI Qualified Code(s): J06.9 - Acute upper respiratory infection, unspecified Patient Disposition: Home, Self-Care Condition: Stable Instructions: Antibiotic Form, Cold Symptoms (ED), Postnasal Drip (DC) Additional Instructions: Take prescription medications only as prescribed Increase fluids and stay well hydrated Tylenol/motrin for pain/fever Flonase and OTC antihistamines as directed Vicks vapor rub to open sinuses Sinus rinses for congestion Cepacol spray, cough drops, throat lozenges, warm tea with honey/lemon, gargle salt water to soothe throat BRAT diet for diarrhea Clear liquids x 24 hours then advance as tolerated for nausea/vomiting Go to the ED if you develop a worsening in your condition- high fever not controlled by Tylenol or Motrin, dehydration, weakness, lethargy, shortness of breath, or chest pain. Follow up with your PCP in 3-5 days if symptoms persist. Patient Language: Greenlandic Prescriptions: New prednisone 20 mg tablet 40 mg PO DAILY 5 Days Qty: 10 0RF No Action aspirin [Adult Low Dose Aspirin] 81 mg tablet,delayed release (DR/EC) 81 mg PO DAILY atorvastatin [Lipitor] 40 mg tablet 40 mg PO DAILY armodafinil 150 mg tablet 75 mg PO QAM PRN valsartan 80 mg tablet 80 mg PO BID eszopiclone 2 mg tablet 2 mg PO QHS Rx Instructions: takes 1/2 tablet at night for sleep fluticasone propionate 50 mcg/actuation spray,suspension See Rx Instructions .ROUTE .COMPLEX Qty: 16 3RF Dose Instruction: SHAKE LIQUID AND USE 1 SPRAY IN EACH NOSTRIL EVERY 12 HOURS Rx Instructions: SHAKE LIQUID AND USE 1 SPRAY IN EACH NOSTRIL EVERY 12 HOURS cholecalciferol (vitamin D3) [Vitamin D3] 50 mcg (2,000 unit) tablet See Rx Instructions .ROUTE .COMPLEX Qty: 180 2RF Dose Instruction: TAKE 1 TABLET BY MOUTH EVERY MORNING AND TAKE 1 TABLET BY MOUTH EVERY EVENING Rx Instructions: TAKE 1 TABLET BY MOUTH EVERY MORNING AND TAKE 1 TABLET BY MOUTH EVERY EVENING levothyroxine 100 mcg tablet See Rx Instructions .ROUTE .COMPLEX Qty: 90 2RF Dose Instruction: TAKE 1 TABLET BY MOUTH DAILY Rx Instructions: TAKE 1 TABLET BY MOUTH DAILY chlorthalidone 25 mg tablet See Rx Instructions .ROUTE .COMPLEX Qty: 30 11RF Dose Instruction: TAKE 1 TABLET BY MOUTH DAILY Rx Instructions: TAKE 1 TABLET BY MOUTH DAILY cetirizine 10 mg tablet See Rx Instructions .ROUTE .COMPLEX Qty: 90 2RF Dose Instruction: TAKE 1 TABLET BY MOUTH DAILY Rx Instructions: TAKE 1 TABLET BY MOUTH DAILY tadalafil [Cialis] 20 mg tablet 20 mg PO DAILY PRN (Reason: sexual activity) Qty: 20 0RF Rx Instructions: administer approximately 30min before sexual activity; do not use more than 1 dose per 24hrs amlodipine [Norvasc] 5 mg tablet 5 mg PO DAILY Follow-up/Referrals: Yash Kang MD [Primary Care Provider] - Time of Disposition: 09:14 Quality NIHSS Nursing Documentation ED NIHSS nursing documentation: reviewed/agree
[2024-09-27 09:07] LABS: EDCOVIDSCREEN Negative (Negative); EDINFLUASCREEN Negative (Negative); EDINFLUBSCREEN Negative (Negative); EDSTREPNEGPOS1 Negative (Negative)
== END 2024-09-27 09:34 | disposition home or self-care (01) ==
PROVIDERS: Emergency Provider Nurse Practitioner Family; PCP Emergency Medicine
DX: R09.82 Postnasal drip (principal); J06.9 Acute upper respiratory infection, unspecified; Z20.822 Contact with and (suspected) exposure to COVID-19; I10 Essential (primary) hypertension; E03.9 Hypothyroidism, unspecified; E78.2 Mixed hyperlipidemia; G47.33 Obstructive sleep apnea (adult) (pediatric); M17.0 Bilateral primary osteoarthritis of knee; E05.90 Thyrotoxicosis, unspecified without thyrotoxic crisis or storm; M47.22 Other spondylosis with radiculopathy, cervical region; I73.9 Peripheral vascular disease, unspecified; Z79.82 Long term (current) use of aspirin
CPT/HCPCS: 87081; 87426; 87804; 87880; 99213; G0463

== ENCOUNTER 2024-11-13 13:51 | Outpatient (CLI) | payer BC, SELFPAY ==
--- NOTE | ~2024-11-13 | DEXA_ITS ---
Bone Density Report Name: KIMI TIERNEY Age: 69 Sex: Male Ethnicity: White Date of : 1955 Indication: prior fracture; Referring Provider: JASMEET COLÓN Study: Bone densitometry was performed. Exam Date: November 13, 2024 Accession number: [id number] Bone Density: Region BMD T-score Z-score Classification AP Spine(L1-L4) 1.207 1.1 1.9 Normal Femoral Neck (Left) 0.987 0.4 1.6 Normal Total Hip (Left) 1.001 -0.2 0.4 Normal Femoral Neck (Right) 0.877 -0.4 0.8 Normal Total Hip (Right) 0.998 -0.2 0.4 Normal Total Hip Mean 1.000 -0.2 0.4 Normal World Health Organization criteria for BMD impression classify patients as: Normal (T-score at or above -1.0), Osteopenia (T-score between -1.0 and -2.5), or Osteoporosis (T-score at or below -2.5). 10-year Fracture Risk: FRAX not reported because: All T-scores for Spine Total, Hip Total, Femoral Neck at or above -1.0 Prior hip or vertebral fracture Clinical Information Provided by Patient: Have had a previous hip or vertebral fracture Has had a low trauma fracture Has used the following medications: Vitamin D Patient maximum height was 76 Drinks caffeinated beverages Impression: The patient has normal bone mass. The patient has risk factors, including: previous fracture. Discussion: INCREASED RISK OF FRACTURE DUE TO HISTORY OF LOW TRAUMA FRACTURE. The patient's previous fracture puts the patient at high risk of a future fracture. In untreated patients, the risk of osteoporotic fracture increases approximately two-fold for each 1.0 SD decrease in T-score. Low bone density is not the only risk factor for fracture; also consider factors such as patient's age, frailty or poor health, risk of falling, risk of injury, previous osteoporotic fracture, family history of osteoporosis, cigarette smoking, low body weight, etc. Not everyone with a low trauma fracture has osteoporosis; osteomalacia and other metabolic bone disorders should also be considered. Patients who have osteoporosis should be evaluated for specific diseases and conditions (secondary causes) that may cause or contribute to bone loss and fracture risk. National Osteoporosis Foundation (NOF) recommends pharmacologic intervention for patients with a prior low trauma hip or vertebral fracture regardless of BMD T-score. The patient should follow a healthful lifestyle (good nutrition with adequate calcium and vitamin D, and appropriate weight-bearing exercise). Follow-Up: Consider a repeat BMD and Vertebral Fracture Assessment (VFA) exam in 2 years or sooner if medically necessary, to reassess this patient's status. Reported by: HOLDEN on 11/13/2024 2:24:00 PM. Reviewed, dictated and finalized at location [facility]
--- OUTSIDE RECORDS SUMMARY | 2024-11-13 14:49 | XMS_ITS | Encounter Summary ---
Author Organization [facility] Address [address] [place] [id number] Care Team Providers Care Tank Inspector Name Role Phone Yash Kang MD Primary Care Provider [phone] Ziyad Harrsi MD Unavailable [phone] Encounter Details Date Type Department Care Team (Late st Contact Info) Description 06/28/2023 [employer] Message Enc [facility] Multispecialty Care - [facility] [address] [address], [address] [place] [address] Federica Jha, KRISTIN [address] [place] [address] Referral? Why? 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 Answer Date of Assessment Author Status No 09/05/2021 5:21 PM FINISH REMOVER Activ e * Do you have serious difficulty walking or climbing stairs? Answer Date of Assessment Author Status No 09/05/2021 5:21 PM Rachele Silva RN Active * Do you have difficulty dressing or bathing? Answer Date of Assessment Author Status No 09/05/2021 5:21 PM Rachele Silva RN Active * Because of a physical, mental, or emotional condition, do you have difficulty doing errands alone such as visiting a doctor's office or shopping? Answer Date of Assessment Author Status No 09/05/2021 5:21 PM Rachele Silva RN Active documented as of this encounter Mental Status * Because of a physical, mental, or emotional condition, do you have serious difficulty concentrating, remembering, or making decisions? Answer Entry Date Author Status No 09/05/2021 5:21 PM Rachele Silva RN Active documented in this encounter Plan of Treatment Upcoming Encounters Date Type Department Care Team (Late st Contact Info) Description 01/01/2025 2:00 PM CDT Office Visit [facility] Mult[facility]pecialty Care - [facility] [address], [address] [place] [address] Niecy Dillon APRN [address] [facility] [address] [place] [address] 01/27/2025 1:30 PM CDT Office Visit [facility] [place] [address] Odette Levy PA [address], [address] [place] [address] 02/17/2025 3:20 PM CDT Office Visit [facility] Multispecialty Care - [facility] [address], [address] [place] [address] Patricio Johnson MD [address] [facility] [place] [address] documented as of this encounter Goals Goal Patient Goal Type Associated Problems Recent Progress Patient-Stated? Author Patient will return to prior living situation and remain independent in ADLs upon discharge from hospital General Thelma Landaverde RN documented as of this encounter Visit Diagnoses Not on filedocumented in this encounter Care Teams Tank Inspector Relationship Specialty Start Date End Date Yash Kang MD [address] [place] [address] PCP - General INTERNAL MEDICINE 12/02/20 Ziyad Harris MD [address] [place] [address] Referring Physician NEPHROLOGY 07/31/23 documented as of this encounter
--- OUTSIDE RECORDS SUMMARY | 2024-11-13 14:49 | XMS_ITS | Encounter Summary ---
Author Organization [facility] Address [facility] [place] [address] Care Team Providers Care Superintendent Drilling And Production Name Role Phone Yash Kang MD Primary Care Provider [phone] Ziyad Harris MD Unavailable [phone] Encounter Details Date Type Department Care Team (Latest Contact Info) Description 07/03/2023 Verari Systemst Message Enc [facility] Medical Group Multispecialty Care - [facility] 3 [facility], [address] [place] [address] Patricio Johnson MD 3 [place], [place] [id number] Referral for Juan carmen. 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 Answer Date of Assessment Author Status No 09/05/2021 5:21 PM VACCINATOR Activ e * Do you have serious difficulty walking or climbing stairs? Answer Date of Assessment Author Status No 09/05/2021 5:21 PM VACCINATOR Rachele Santiago RN Active * Do you have difficulty [...] Silva RN Active documented in this encounter Progress Notes * Kalyn Deleon RN - 07/03/2023 9:26 AM CST Please send referral to Dr Antoine office INATOR documented in this encounter Plan of Treatment Upcoming Encounters Date Type Department Care Team (Late st Contact Info) Description 01/01/2025 2:00 PM CDT Office Visit [facility] - [facility] 3 [facility], [address] [place] [id number] Niecy Dillon APRN 3 [facility] [address] [place] [address] 01/27/2025 1:30 PM CDT Office Visit [facility] THREE [facility], [address] [place] [address] Odette Levy PA 3 [facility], [address] [place] [address] 02/17/2025 3:20 PM CDT Office Visit [facility] Medical [facility] Mult[facility]pecialty Care - [facility] 3 [facility], [address] [place] [address] Patricio Johnson MD 3 [facility] [place] [address] documented as of this encounter Goals Goal Patient Goal Type Associated Problems Recent Progress Patient-Stated? Author Patient will return to prior living situation and remain independent in ADLs upon discharge from hospital General No Thelma Lemus, RN documented as of this encounter Visit Diagnoses Not on filedocumented in this encounter Care Teams Superintendent Drilling And Production Relationship Specialty Start Date End Date Yash Kang MD [address] [facility] 2 [place] [address] PCP - General INTERNAL MEDICINE 12/02/20 Ziyad Harris MD [address] [place] [address] Referring Physician NEPHROLOGY 07/31/23 documented as of this encounter
--- OUTSIDE RECORDS SUMMARY | 2024-11-13 14:49 | XMS_ITS | Encounter Summary ---
Author Organization [facility] Address [address] [place] [address] Care Team Providers Care Pattern Ruler Name Role Phone Yash Kang MD Primary Care Provider [phone] Ziyad Harris MD Unavailable [phone] Encounter Details Date Type Department Care Team (Late st Contact Info) Description 08/18/2021 Poll Everywhere Message Enc [facility], [facility] [address] [place], [place] [phone] Jorge Carrion MD [facility]. [facility] [address] [place], [place] [phone] How to provide BLood Test results, Blood Pressure measurements Social History Tobacco Use Types Packs/Day Years Used Date Smoking Tobacco: Never Smokeless Tobacco: Never Alcohol Use Standard Drinks/Week Comments Yes 0 (1 standard drink = 0.6 oz pur e alcohol) 1 per month Sex and Gender Information Value Date Recorded Sex Assigned at Male 08/20/2024 8:23 AM PROFESSOR OF MEDICINE Legal Sex Male 7:54 PM CDT Gender Identity Male 09/05/2021 5:16 PM PROFESSOR OF MEDICINE Sexual Orientation Straight 09/05/2021 5: 16 PM PROFESSOR OF MEDICINE 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 No / Unsure 07/29/2021 1:27 PM PROFESSOR OF MEDICINE documented as of this encounter Progress Notes * Elizabeth Guerrero RN - 08/20/2021 8:37 AM CST Can you request these records from PCP for us to have put in scanning and review? Latest blood tests and the carotid US? Thanks! ESSOR OF MEDICINE documented in this encounter Plan of Treatment Upcoming Encounters Date Type Department Care Team (Late st Contact Info) Description 01/01/2025 2:00 PM CDT [facility] 3 [facility], [address] [place] [phone] Niecy Dillon APRN 3 [facility] [address] [place] [address] 01/27/2025 1:30 PM CDT Office [facility] [address] [place], [place] [address] Odette Levy PA 3 [facility], [address] [place] [address] 02/17/2025 3:20 PM CDT [facility] 3 [facility], [address] [place] [phone] Patricio Johnson MD 3 [facility] [place] [address] documented as of this encounter Visit Diagnoses Not on filedocumented in this encounter Care Teams Pattern Ruler Relationship Specialty Start Date End Date Yash Kang MD [address] [place] [address] PCP - General INTERNAL MEDICINE 12/02/20 Ziyad Harris MD [address] [place], [place] [phone] Referring Physician NEPHROLOGY 07/31/23 documented as of this encounter
--- OUTSIDE RECORDS SUMMARY | 2024-11-13 14:49 | XMS_ITS | Encounter Summary ---
Author Organization [facility] Address [facility] [place] [address] Care Team Providers Care Bumboater Name Role Phone Yash Kang MD Primary Care Provider [phone] Ziyad Harris MD Unavailable [phone] Encounter Details Date Type Department Care Team (Late st Contact Info) Description 07/04/2024 MyVR Message Enc [facility] THREE [facility], [facility] [address] [place], [place] [phone] Jorge Carrion MD [facility]. [facility] [address] [place], [place] [phone] Juan Bloom Triponin levels. Cause? Social History Tobacco Use Types Packs/Day Years Used Date Smoking Tobacco: Never Smokeless Tobacco: Never Comments:NA Alcohol Use Standard Drinks/Week Comments Yes 0 (1 standard drink = 0.6 oz pur e alcohol) Rarely B1300 Health Literacy Answer Date Recor ded How often do you need to hav e someone help you when you read instructions, pamphlets, or other written material from your doctor or pharmacy? Never 07/03/2024 [facility] Utilities Answer Date Recorded In the past 12 months has th e electric, gas, oil, or water company threatened to shut off services in your home? No 07/03/2024 Humiliation, Afraid, Rape, and Kick questionnair e Answer Date Recorded Within the last year, have y ou been afraid of your partner or ex-partner? No 07/03/2024 Within the last year, have y ou been humiliated or emotionally abused in other ways by your partner or ex-partner? No Within the last year, have y ou been kicked, hit, slapped, or otherwise physically hurt by your partner or ex-partner? No 07/03/2024 Within the last year, have y ou been raped or forced to have any kind of sexual activity by your partner or ex-partner? No 07/03/2024 Social Connection and Isolat ion Panel [NHANES] Answer Date Recorded In a typical week, how many times do you talk on the phone with family, friends, or neighbors? Three times a week 07/03/2024 How often do you get togethe r with friends or relatives? Twice a week 07/03/2024 How often do you attend chur or oriental orthodox services? More than 4 times per year 07/03/2024 Do you belong to any clubs o r organizations such as anabaptism groups, unions, fraternal or athletic groups, or school groups? No 07/03/2024 How often do you attend meet ings of the clubs or organizations you belong to? Never 07/03/2024 Are you , , di vorced, , never , or living with a partner? 07/03/2024 AUDIT-C Answer Date Recorded Q1: How often do you have a drink containing alc ohol? Monthly or less 07/03/2024 Q2: How many drinks containi ng alcohol do you have on a typical day when you are drinking? 1 or 2 07/03/2024 Q3: How often do you have si x or more drinks on one occasion? Never 07/03/2024 Overall Financial Resource Strain (CARDIA) Answe r Date Recorded How hard is it for you to pa y for the very basics like food, housing, medical care, and heating? Somewhat hard 07/03/2024 PHQ-2 Answer Date Recorded Patient Health Questionnaire-2 Score 0 11/06/2023 [facility] - Occupational Stress Questionnaire Answer Date Recorded Do you feel stress - tense, restless, nervous, or anxious, or unable to sleep at night because your mind is troubled all the time - these days? To some extent 07/03/2024 Exercise Vital Sign Answer Date Recorde d On average, how many days pe r week do you engage in moderate to strenuous exercise (like a brisk walk)? 3 days 07/03/2024 On average, how many minutes do you engage in exercise at this level? 30 min 07/03/2024 Hunger Vital Sign Answer Date Recorded Within the past 12 months, y ou worried that your food would run out before you got the money to buy more. Never true 07/03/20 24 Within the past 12 months, t he food you bought just didn't last and you didn't have money to get more. Never true 07/03/2024 PRAPARE - Transportation Answer Date Re corded In the past 12 months, has l ack of transportation kept you from medical appointments or from getting medications? No 06/16 In the past 12 months, has l ack of transportation kept you from meetings, work, or from getting things needed for daily living? No 07/03/2024 Housing Stability Vital Sign Answer Jorje e Recorded In the last 12 months, was t here a time when you were not able to pay the mortgage or rent on time? No 07/03/2024 In the past 12 months, how m any times have you moved where you were living? 1 07/03/2024 At any time in the past 12 m [facility], were you homeless or living in a fci (including now)? 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 Answer Date of Assessment Author Status No 07/03/2024 11:00 PM Ana Muñoz RN Active * Do you have serious difficulty walking or climbing stairs? Answer Date of Assessment Author Status No 07/03/2024 11:00 PM Ana Muñoz RN Active * Do you have difficulty dressing or bathing? Answer Date of Assessment Author Status No 07/03/2024 11:00 PM Ana Muñoz RN Active * Because of a physical, mental, or emotional condition, do you have difficulty doing errands alone such as visiting a doctor's office or shopping? Answer Date of Assessment Author Status No 07/03/2024 11:00 PM Ana Muñoz RN Active documented as of this encounter Mental Status * Because of a physical, mental, or emotional condition, do you have serious difficulty concentrating, remembering, or making decisions? Answer Entry Date Author Status No 07/03/2024 11:00 PM Ana Muñoz RN Active documented in this encounter Plan of Treatment Upcoming Encounters Date Type Department Care Team (Late st Contact Info) Description 01/01/2025 2:00 PM CDT [facility] [address] [facility], [address] [place] [phone] Niecy Dillon APRN 3 [facility] [address] [place] [address] 01/27/2025 1:30 PM CDT Office Visit [facility] [facility] [address] [place] [address] Odette Levy PA [address] [facility], [address] [place] [address] 02/17/2025 3:20 PM CDT [facility] 3 [facility], [address] [place] [address] Patricio Johnson MD 3 [facility] [place] [address] documented as of this encounter Goals Goal Patient Goal Type Associated Problems Recent Progress Patient-Stated? Author Patient will return to prior living situation and remain independent in ADLs upon discharge from hospital General No Thelma Lemus RN Safety - demonstrates understanding of home safety measures Lifestyle No Meagan Burnette RN Safety Patient/family will have appropriate support at home upon discharge Lifestyle No Meagan Burnette RN documented as of this encounter Visit Diagnoses Not on filedocumented in this encounter Care Teams Bumboater Relationship Specialty Start Date End Date Yash Kang MD [address] [place] [address] PCP - General INTERNAL MEDICINE 12/02/20 Ziyad Harris MD [address] [place] [address] Referring Physician NEPHROLOGY 07/31/23 documented as of this encounter
--- OUTSIDE RECORDS SUMMARY | 2024-11-13 14:49 | XMS_ITS | Encounter Summary ---
Author Organization [facility] Address [address] [place] [address] Care Team Providers Care Zoogler Name Role Phone Yash Kang MD Primary Care Provider [phone] Ziyad Harris MD Unavailable [phone] Encounter Details Date Type Department Care Team (Late st Contact Info) Description 06/24/2024 Seedcamp Message Enc [facility] [address] [place], [place] [phone] Jorge Carrion MD [facility]. [facility] [address] [place], [place] [phone] Blood pressure an new prescription l Social History Tobacco Use Types Packs/Day Years Used Date Smoking Tobacco: Never Smokeless Tobacco: Never Comments:NA Alcohol Use Standard Drinks/Week Comments Yes 0 (1 standard drink = 0.6 oz pur e alcohol) Rarely PHQ-2 Answer Date Recorded Patient Health Questionnaire-2 Score 0 11/06/2023 Sex and Gender Information Value Date Recorded Sex Assigned at Male 08/20/2024 8:23 AM ENGINEERING EQUIPMENT OPERATOR Legal Sex Male 7:54 PM CDT Gender Identity Male 09/05/2021 5:16 PM ENGINEERING EQUIPMENT OPERATOR Sexual Orientation Straight 09/05/2021 5: 16 PM ENGINEERING EQUIPMENT OPERATOR 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 Answer Date of Assessment Author Status No 09/05/2021 5:21 PM ENGINEERING EQUIPMENT OPERATOR Activ e * Do you have serious difficulty walking or climbing stairs? Answer Date of Assessment Author Status No 09/05/2021 5:21 PM ENGINEERING EQUIPMENT OPERATOR Rachele Santiago RN Active * Do you [...] documented in this encounter Progress Notes * TONJA Olivera - 06/24/2024 4:26 PM CST Spoke with patient on the phone and discussed reasons for switching from telmisartan to valsartan since insurance no longer covered telmisartan. He will be sending over his blood pressure logs to seeif further blood pressure medication adjustments need to be made. NEERING EQUIPMENT OPERATOR documented in this encounter Plan of Treatment Upcoming Encounters Date Type Department Care Team (Late st Contact Info) Description 01/01/2025 2:00 PM CDT Office Visit [facility] Multispecialty Care - [facility] 3 [facility], [address] [place] [address] Niecy Dillon APRN 3 [facility] [address] [place] [address] 01/27/2025 1:30 PM CDT Office Visit [facility] [facility], [address] [place] [address] Odette Levy PA 3 [facility], [address] [place] [address] 02/17/2025 3:20 PM CDT Office Visit [facility] Multispecialty Care - [facility] 3 [facility], [address] [place] [phone] Patricio Johnson MD 3 [facility] [place] [address] documented as of this encounter Goals Goal Patient Goal Type Associated Problems Recent Progress Patient-Stated? Author Patient will return to prior living situation and remain independent in ADLs upon discharge from hospital General No Thelma Lemus, RN documented as of this encounter Visit Diagnoses Not on filedocumented in this encounter Care Teams Zoogler Relationship Specialty Start Date End Date Yash Kang MD [address] [facility] 2 [place], [place] [phone] PCP - General INTERNAL MEDICINE 12/02/20 Ziyad Harris MD [address] [place] [address] Referring Physician NEPHROLOGY 07/31/23 documented as of this encounter
--- OUTSIDE RECORDS SUMMARY | 2024-11-13 14:49 | XMS_ITS | Encounter Summary ---
Author Organization [facility] Address [facility] [place] [address] Care Team Providers Care Script Manager Name Role Phone Yash Kang MD Primary Care Provider [phone] Ziyad Harris MD Unavailable [phone] Encounter Details Date Type Department Care Team (Latest Contact Info) Description 07/03/2024 MyChart Message Enc [facility] Medical [facility] Multispecialty Care - [address], [address] [place] [address] Patricio Johnson MD [address] [place] [phone] Juan Wolf return to [facility] Social History Tobacco Use Types Packs/Day Years [...] from your doctor or pharmacy? Never 07/03/2024 [facility] Utilities Answer Date Recorded In the past 12 months has e electric, gas, oil, or water company [...] week 07/03/2024 How often do you attend [facility] or protestant services? More than 4 times per year 07/03/2024 Do you belong to any clubs o r organizations such as nondenominational groups, unions, fraternal or athletic groups, or [...] Recorded Patient Health Questionnaire-2 Score 0 11/06/2023 [facility] of Occupat ional Health - Occupational Stress [...] any time in the past 12 m [facility], were you homeless or living in a penitentiary (including now)? 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 No 07/03/2024 11:00 PM Ana Muñoz RN A ctive Do you have difficulty dressing or bathing? No 07/03/2024 11:00 PM Ana Muñoz RN Active * Question Answer Date of Assessment Author Status Because of a physical, mental, or emotional condition, do you have difficulty doing errands alone such as visiting a doctor's office or shopping? No 07/03/2024 11:00 PM Ana Muñoz RN Ac tibrenna * Audit-C Score Answer Date of Assessment Author Status 1 07/03/2024 11:00 PM Ana Muñoz RN Active * Question Answer Date of Assessment Author Status Q1: How often do you have a drink containing alcohol? Monthly or less 07/03/2024 11:00 PM Ana Muñoz RN Active Q2: How many drinks containing alcohol do you have on a typical day when you are drinking? 1 or 2 07/03/2024 11:00 PM Ana Muñoz RN Active Q3: How often do you have six or more drinks on one occasion? Never 07/03/2024 11:00 PM Ana Muñoz RN Active * RETIRED Are you deaf or do you have serious difficulty hearing Answer Date of Assessment Author Status No 09/05/2021 5:21 PM CELL TECHNICIAN Activ e * RETIRED Are you blind or do you have serious difficulty seeing, even when wearing glasses? Answer Date of Assessment Author Status No 09/05/2021 5:21 PM CELL TECHNICIAN Activ e * Do you have serious [...] 5:21 PM Rachele Silva RN Active * Question Answer Date of Assessment Author Status Are you deaf or do you have serious difficulty hearing No 07/03/2024 11:00 PM Ana Muñoz RN Ac tibrenna Are you blind or do you have serious difficulty seeing, even when wearing glasses? No 07/03/2024 11:00 PM Ana Muñoz RN Ac tive * Calculated C-SSRS Risk Score (Lifetime/Recent) Answer Date of Assessment Author Status No Risk Indicated 07/03/2024 12:31 PM Simin Carmona RN Active * [place] Suicide Severity Rating Scale (Screener/Recent Self-Report) Question Answer Date of Assessment Author Status 1. Wish to be (Past 1 Month) No 07/03/2024 12:31 PM Neyda Carmona RN Ac tive 2. Non-Specific Active Suicidal Thoughts (Past 1 Month) No 07/03/2024 12:31 PM Neyda Carmona RN Ac tive 6. Suicidal Behavior (Lifetime) No 07/03/2024 12:31 PM Neyda Carmona RN Rashaun tive documented as of this encounter Mental Status * Question Answer Entry Date Author Status Because of a physical, mental, or emotional condition, do you have serious difficulty concentrating, remembering, or making decisions? No 07/03/2024 11:00 PM Ana Muñoz RN [...] Description 01/01/2025 2:00 PM CDT Office Visit [facility] Multispecialty Care - [facility] [address] [facility], [address] [place] [address] Niecy Dillon APRN 3 [facility] [address] [place] [address] 01/27/2025 1:30 PM CDT Office Visit [place] THREE [facility] [place] [address] Odette Levy PA [address], [address] [place] [address] 02/17/2025 3:20 PM CDT Office Visit [facility] Medical Group Multispecialty Care - [facility] [address], [address] [place] [address] Patricio Johnson MD 3 [facility] [place] [address] documented as of this encounter Goals Goal Patient Goal Type Associated Problems Recent Progress Patient-Stated? Author Patient will return to prior living situation and remain independent in ADLs upon discharge from hospital General Thelma Landaverde RN Safety - demonstrates understanding of home safety measures Lifestyle No Meagan Burnette RN Safety Patient/family will have appropriate support at home upon discharge Lifestyle No Meagan Burnette RN documented as of this encounter Visit Diagnoses Not on filedocumented in this encounter Care Teams Script Manager Relationship Specialty Start Date End Date Yash Kang MD [address] [facility] 2 [place], [place] [id number] PCP - General INTERNAL MEDICINE 12/02/20 Ziyad Harris MD [address] [place] [address] Referring Physician NEPHROLOGY 07/31/23 documented as of this encounter
--- OUTSIDE RECORDS SUMMARY | 2024-11-13 14:49 | XMS_ITS | Encounter Summary ---
Author Organization [facility] Address [address] [place] [address] Care Team Providers Care Crm Consultant Name Role Phone Yash Kang MD Primary Care Provider [phone] Ziyad Harris MD Unavailable [phone] Encounter Details Date Type Department Care Team (Late st Contact Info) Description 10/04/2021 [employer] Message Enc [facility], [facility] [address] [place], [place] [address] Jorge Carrion MD [facility]. 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 No / Unsure 10/04/2021 6:36 AM CDT documented as of this encounter Functional Status * RETIRED Are you deaf or do you have serious difficulty hearing Answer Date of Assessment Author Status No 09/05/2021 5:21 PM MEDICAL ADMINISTRATIVE Activ e * RETIRED Are you blind or do you have serious difficulty seeing, even when wearing glasses? Answer Date of Assessment Author Status No 09/05/2021 5:21 PM MEDICAL ADMINISTRATIVE Activ e * Do you have serious [...] documented in this encounter Progress Notes * Elizabeth Guerrero RN - 10/04/2021 11:00 AM CDT Please reschedule. documented in this encounter Plan of Treatment Upcoming Encounters Date Type Department Care Team (Late st Contact Info) Description 01/01/2025 2:00 PM CDT Office Visit [facility] Medical [facility] Multispecialty Care - [facility] [address] [facility], [address] [place] [address] Niecy Dillon APRN 3 [facility] [address] [place] [address] 01/27/2025 1:30 PM CDT Office Visit [facility] THREE [facility], [address] [place] [address] Odette Levy PA [address] [facility], [address] [place] [address] 02/17/2025 3:20 PM CDT Office Visit [facility] Medical Group Multispecialty Care - [facility] [address], [address] [place] [address] Patricio Johnson MD 3 [place] [address] documented as of this encounter Goals Goal Patient Goal Type Associated Problems Recent Progress Patient-Stated? Author Patient will return to prior living situation and remain independent in ADLs upon discharge from hospital General No Thelma Lemus, RN documented as of this encounter Visit Diagnoses Not on filedocumented in this encounter Care Teams Crm Consultant Relationship Specialty Start Date End Date Yash Kang MD [address] [facility] [address] [place] [address] PCP - General INTERNAL MEDICINE 12/02/20 Ziyad Harris MD [address] [place] [address] Referring Physician NEPHROLOGY 07/31/23 documented as of this encounter
--- OUTSIDE RECORDS SUMMARY | 2024-11-13 14:49 | XMS_ITS | Encounter Summary ---
Author Organization [facility] Address [facility] [place] [address] Care Team Providers Care Mortgage Specialist Name Role Phone Yash Kang MD Primary Care Provider [phone] Ziyad Harris MD Unavailable [phone] Encounter Details Date Type Department Care Team (Latest Contact Info) Description 03/11/2022 [employer] Message Enc [facility] [address] Sanam Vega NP Prescription refill need [facility] Social History Tobacco Use Types Packs/Day Years Used Date Smoking Tobacco: Never Smokeless Tobacco: Never Alcohol Use Standard Drinks/Week Comments Yes 0 (1 standard drink = 0.6 oz pur e alcohol) 1 per month Sex and Gender Information Value Date Recorded Sex Assigned at Male 08/20/2024 8:23 AM FILM REPLACEMENT ORDERER Legal Sex Male 7:54 PM CDT Gender Identity Male 09/05/2021 5:16 PM FILM REPLACEMENT ORDERER Sexual Orientation Straight 09/05/2021 5: 16 PM FILM REPLACEMENT ORDERER 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 Yes 03/10/2022 7:22 AM CDT documented as of this encounter Functional Status * RETIRED Are you deaf or do you have serious difficulty hearing Answer Date of Assessment Author Status No 09/05/2021 5:21 PM FILM REPLACEMENT ORDERER Activ e * RETIRED Are you blind or do you have serious difficulty seeing, even when wearing glasses? Answer Date of Assessment Author Status No 09/05/2021 5:21 PM FILM REPLACEMENT ORDERER Activ e * Do you have serious [...] documented in this encounter Progress Notes * Sanam Vega NP - 03/11/2022 12:23 PM CDT Can we please refill documented in this encounter Plan of Treatment Upcoming Encounters Date Type Department Care Team (Late st Contact Info) Description 01/01/2025 2:00 PM CDT Office Visit [facility] Medical Group Multispecialty Care - [facility] [address] [facility], [address] [place] [address] Niecy Dillon APRN 3 [facility] [address] [place] [address] 01/27/2025 1:30 PM CDT Office Visit [place]avonne Sch[place] THREE [facility], [address] [place] [address] Odette Levy PA 3 [facility], [address] [place] [address] 02/17/2025 3:20 PM CDT Office Visit [facility] Medical Group Multispecialty Care - [facility] [address] [facility], [address] [place] [address] Patricio Johnson MD 3 [facility] [place] [address] documented as of this encounter Goals Goal Patient Goal Type Associated Problems Recent Progress Patient-Stated? Author Patient will return to prior living situation and remain independent in ADLs upon discharge from hospital General No Thelma Lemus, RN documented as of this encounter Visit Diagnoses Not on filedocumented in this encounter Care Teams Mortgage Specialist Relationship Specialty Start Date End Date Yash Kang MD [address] [place] [address] PCP - General INTERNAL MEDICINE 12/02/20 Ziyad Harris MD [address] [place] [address] Referring Physician NEPHROLOGY 07/31/23 documented as of this encounter
--- OUTSIDE RECORDS SUMMARY | 2024-11-13 14:49 | XMS_ITS | Encounter Summary ---
Author Organization [facility] Address [address] [place] [address] Care Team Providers Care Working Foreman Name Role Phone Yash Kang MD Primary Care Provider [phone] Ziyad Harris MD Unavailable [phone] Encounter Details Date Type Department Care Team (Late st Contact Info) Description 10/25/2021 Swarm Mobile Message Enc [place] [facility] THREE [facility], [address] [place], [place] [phone] Jorge Carrion MD Three [facility]. [address] [place], [place] [phone] Scheduled for Heart Stess Test today. 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 No / Unsure 10/25/2021 10:16 AM CDT documented as of this encounter Functional Status * RETIRED Are you deaf or do you have serious difficulty hearing Answer Date of Assessment Author Status No 09/05/2021 5:21 PM RAIL CAR PAINTER/SANDBLASTER Activ e * RETIRED Are you blind or do you have serious difficulty seeing, even when wearing glasses? Answer Date of Assessment Author Status No 09/05/2021 5:21 PM RAIL CAR PAINTER/SANDBLASTER Activ e * Do you have serious [...] Date Author Status No 09/05/2021 5:21 PM Racheel Silva RN Active documented in this encounter Progress Notes * Sanam Vega NP - 10/25/2021 11:14 AM CDT Please read below - Let him know all is okay - if need to reschedule stress test then that if fine. * Elizabeth Guerrero RN - 10/25/2021 8:56 AM CDT kota documented in this encounter Plan of Treatment Upcoming Encounters Date Type Department Care Team (Late st Contact Info) Description 01/01/2025 2:00 PM CDT Office Visit [facility] Multispecialty Care - [facility] [address] [facility], [address] [place] [address] Niecy Dillon APRN [address] [facility] [address] [place] [address] 01/27/2025 1:30 PM CDT Office Visit [facility] [facility] [address] [place] [address] Odette Levy PA [address] [facility], [address] [place] [address] 02/17/2025 3:20 PM CDT Office Visit [facility] Medical Group Multispecialty Care - [facility] [address] [facility], [address] [place] [phone] Patricio Johnson MD 3 [facility] [place] [address] documented as of this encounter Goals Goal Patient Goal Type Associated Problems Recent Progress Patient-Stated? Author Patient will return to prior living situation and remain independent in ADLs upon discharge from hospital General No Thelma Lemus RN documented as of this encounter Visit Diagnoses Not on filedocumented in this encounter Care Teams Working Foreman Relationship Specialty Start Date End Date Yash Kang MD [address] [facility] 2 [place] [address] PCP - General INTERNAL MEDICINE 12/02/20 Ziyad Harris MD [address] [place] [address] Referring Physician NEPHROLOGY 07/31/23 documented as of this encounter
--- OUTSIDE RECORDS SUMMARY | 2024-11-13 14:49 | XMS_ITS | Encounter Summary ---
Author Organization [facility] Address [facility] [place] [address] Care Team Providers Care Aviation Tactical Readiness Officer Name Role Phone Yash Kang MD Primary Care Provider [phone] Ziyad Harris MD Unavailable [phone] Encounter Details Date Type Department Care Team (Late st Contact Info) Description 08/19/2024 [email or web address] Message Enc [facility] Call Center [address] [place] [phone] Mariel, [facility] Provider gabapentin (NEURONTIN) 100 MG capsule Social History Tobacco Use Types Packs/Day Years [...] from your doctor or pharmacy? Never 07/03/2024 [facility] Utilities Answer Date Recorded In the past 12 months has e NEX[employer], gas, oil, or water [employer] threatened to shut off services in your [...] How often do you attend chur or confucianist services? More than 4 times per year 07/03/2024 Do you belong to any clubs o r organizations such as lutheran groups, unions, fraternal or athletic groups, or [...] Date Recorded Patient Health Questionnaire-2 Score 0 08/20/2024 [facility] of Occupat ionnd Health - Occupational Stress Questionnaire Answer Date [...] any time in the past 12 m [facility], were you homeless or living in a assisted (including now)? 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 Question Answer Date of Assessment Author Status Little interest or pleasure in doing things Not at all 08/20/2024 8:24 AM Wanda Brown MA Acti ve Feeling down, depressed, or hopeless Not at all 08/20/2024 8:24 AM Wanda Brown MA Active Patient Health Questionnaire-2 Score 0 08/20/2024 8:24 AM Wanda Brown M A Active documented as of this encounter Mental [...] Description 01/01/2025 2:00 PM CDT Office Visit [facility] Multispecialty Care - [facility] 3 [facility], [address] [place] [address] Niecy Dillon APRN 3 [facility] [address] [place] [address] 01/27/2025 1:30 PM CDT Office Visit [facility] THREE [facility], [address] [place] [address] Odette Levy PA 3 [facility], [address] [place], [place] [address] 02/17/2025 3:20 PM CDT Office Visit [facility] Multispecialty Care - [facility] [address] [facility], [address] [place] [address] Patricio Johnson MD 3 [place] [address] documented as of this encounter Goals Goal Patient Goal Type Associated Problems Recent Progress Patient-Stated? Author Patient will return to prior living situation and remain independent in ADLs upon discharge from hospital General No Thelma Lemus RN Safety - demonstrates understanding of home safety measures Lifestyle Meagan Maxwell RN Safety Patient/family will have appropriate support at home upon discharge Lifestyle No Meagan Burnette RN documented as of this encounter Visit Diagnoses Not on filedocumented in this encounter Care Teams Aviation Tactical Readiness Officer Relationship Specialty Start Date End Date Yash Kang MD [address] [place] [address] PCP - General INTERNAL MEDICINE 12/02/20 Ziyad Harris MD [address] [facility] [address] [place] [address] Referring Physician NEPHROLOGY 07/31/23 documented as of this encounter
--- OUTSIDE RECORDS SUMMARY | 2024-11-13 14:49 | XMS_ITS | Encounter Summary ---
Author Organization [facility] Address [facility] [place] [address] Care Team Providers Care Mechanical Apprentice Name Role Phone Yash Kang MD Primary Care Provider [phone] Ziyad Harris MD Unavailable [phone] Encounter Details Date Type Department Care Team (Late st Contact Info) Description 09/18/2024 [employer] Message Enc [facility] [place] [address] [id number] Darrel Pena, SOLE TRIMMER [id number] [place] [address] [phone] (Work) Follow up from injection Aug 27 Social History Tobacco Use Types Packs/Day Years [...] your doctor or pharmacy? Never 07/03/2024 [facility] Utilities Answer Date Recorded In the [...] week 07/03/2024 How often do you attend [facility] or latter day services? More than 4 times per year 07/03/2024 Do you belong to any clubs o r organizations such as mandaeism groups, unions, fraternal or athletic groups, or [...] Recorded Patient Health Questionnaire-2 Score 0 08/20/2024 [facility] - Occupational Stress Questionnaire Answer Date [...] any time in the past 12 m [facility], were you homeless or living in a longterm (including now)? 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 file [...] Description 01/01/2025 2:00 PM CDT [facility] [address] [facility], [address] [place] [address] Niecy Dillon APRN 3 [facility] [address] [place] [address] 01/27/2025 1:30 PM CDT Office Visit [facility] THREE [facility] [place] [address] Odette Levy PA [address] [facility], [address] [place] [address] 02/17/2025 3:20 PM CDT [facility] [address] [facility], [address] [place] [address] Patricio Johnson MD 3 [facility] [place] [address] documented as of this encounter Goals Goal [...] on filedocumented in this encounter Care Teams Mechanical Apprentice Relationship Specialty Start Date End Date Yash Kang MD [address] [facility] 2 [place], [place] [phone] PCP - General INTERNAL MEDICINE 12/02/20 Ziyad Hraris MD [address] [place] [address] Referring Physician NEPHROLOGY 07/31/23 documented as of this encounter
--- OUTSIDE RECORDS SUMMARY | 2024-11-13 14:49 | XMS_ITS | Encounter Summary ---
Author Organization [facility] Address [address] [place] [id number] Care Team Providers Care Prefitter Name Role Phone Yash Kang MD Primary Care Provider + [phone] Ziyad Harris MD Unavailable [phone] Encounter Details Date Type Department Care Team (Late Contact Info) Description 08/23/2021 Abstract [facility] [address] Florence Gonzalez MA Social History Tobacco Use Types Packs/Day Years Used Date Smoking Tobacco: Never Smokeless Tobacco: Never Alcohol Use Standard Drinks/Week Comments Yes 0 (1 standard drink = 0.6 oz pur e alcohol) 1 per month Sex and Gender Information Value Date Recorded Sex Assigned at Male 08/20/2024 8:23 AM SUPERINTENDENT [employer] Legal Sex Male 7:54 PM CDT Gender Identity Male 09/05/2021 5:16 PM [employer] Sexual Orientation Straight 09/05/2021 5: 16 PM [employer] 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 No / Unsure 07/29/2021 1:27 PM [employer]PER[employer] documented as of this encounter Plan of Treatment Upcoming Encounters Date Type Department Care Team (Late Contact Info) Description 01/01/2025 2:00 PM CDT Office Visit [facility] - [facility] [address], [address] [place] [address] Niecy Dillon APRN [address] [facility] [address] [place] [address] 01/27/2025 1:30 PM CDT [facility] [address] [place] [address] Odette Levy PA [address], [address] [place] [address] 02/17/2025 3:20 PM CDT Office Visit [facility] [address], [address] [place] [address] Patricio Johnson MD [address] [place] [address] documented as of this encounter Procedures Procedure Name Priority Date/Time Associated Diagnosis Comments COMPREHENSIVE METABOLIC PANEL Routine 04/27/2024 LIPID PANEL Routine 04/27/2024 THYROID STIM HORMONE TSH Routine 04/27/2024 VITAMIN D, 25 OH Routine 04/27/2024 COMPREHENSIVE METABOLIC PANEL Routine 01/20/2024 CBC, MANUAL DIFF Routine 01/20/2024 BASIC METABOLIC PANEL Routine 07/25/2023 COMPREHENSIVE METABOLIC PANEL Routine 01/23/2023 COMPREHENSIVE METABOLIC PANEL Routine 07/30/2021 LIPID PANEL Routine 07/30/2021 HEMOGLOBIN, GLYCOSYLATED Routine 07/30/2021 THYROID STIM HORMONE TSH Routine 07/30/2021 documented in this encounter Results * VITAMIN D, 25 OH (04/27/2024) Pathologist [facility] VITAMIN D 25 HYDROXY S/P/B 57.3 04/27/2024 Default History Genericprovider LABORATORY Final Result * COMPREHENSIVE METABOLIC PANEL (04/27/2024) Pathologist [facility] SODIUM S/P/B 139 GLUCOSE 100 mg/dL AST 21 BUN 19 CREATININE S/P/B 1.01 0.7 - 1.3 CALCIUM S/P/B 10.0 POTASSIUM S/P/B 3.7 CHLORIDE S/P/B 98 ALT 22 GFR ESTIMATE 81 Default History Genericprovider LABORATORY Edited Result - Final * LIPID PANEL (04/27/2024) Pathologist [facility] CHOLESTEROL 189 TRIGLYCERIDES 118 HDL 45 LDL (CALCULATED) 123 Default History Genericprovider LABORATORY Edited Result - Final * THYROID STIM HORMONE TSH (04/27/2024) Pathologist [facility] TSH 1.900 Default History Genericprovider LABORATORY Edited Result - Final * COMPREHENSIVE METABOLIC PANEL (01/20/2024) Pathologist [facility] SODIUM S/P/B 139 GLUCOSE 110 mg/dL BUN 27 CREATININE S/P/B 1.02 0.7 - 1.3 CALCIUM S/P/B 9.6 POTASSIUM S/P/B 4.1 CHLORIDE S/P/B 98 Default History Genericprovider LABORATORY Final Result * CBC, MANUAL DIFF (01/20/2024) Pathologist [facility] WBC 9.6 HGB 14.0 HCT 43.5 PLT 272 Default History Genericprovider LABORATORY Final Result * BASIC METABOLIC PANEL (07/25/2023) Pathologist [facility] SODIUM S/P/B 140 POTASSIUM S/P/B 4.2 CO2 27 CHLORIDE S/P/B 98 GLUCOSE 90 mg/dL CALCIUM S/P/B 9.7 BUN 27 CREATININE S/P/B 0.93 0.7 - 1.3 EGFR NON-AFR. AMER. 90 <=90 07/25/2023 Default History Genericprovider LABORATORY Final Result * COMPREHENSIVE METABOLIC PANEL (01/23/2023) Pathologist [facility] SODIUM S/P/B 139 GLUCOSE 114 mg/dL BUN 22 CREATININE S/P/B 0.92 0.7 - 1.3 CALCIUM S/P/B 9.4 POTASSIUM S/P/B 4.6 CHLORIDE S/P/B 98 Narrative Resulting Agency Comment Default History Genericprovider LABORATORY Final Result * COMPREHENSIVE METABOLIC PANEL (07/30/2021) Pathologist [facility] SODIUM S/P/B 143 POTASSIUM S/P/B 4.4 CO2 26 CHLORIDE S/P/B 102 GLUCOSE 94 mg/dL CALCIUM S/P/B 9.8 BUN 20 CREATININE S/P/B 1.04 0.7 - 1.3 EGFR AFR. AMER. 87 <=90 EGFR NON-AFR. AMER. 75 <=90 ALKALINE PHOSPHATASE S/P/B 119 ALT 17 AST 17 BILIRUBIN TOTAL S/P/B 0.5 ALBUMIN S/P/B 4.1 3.5 - 5.0 TOTAL PROTEIN S/P/B 7.0 GLOBULIN 2.9 07/30/2021 Doc [facility] LABORATORY Final Result * HEMOGLOBIN, GLYCOSYLATED (07/30/2021) HGB A1C 5.8 % 07/30/2021 us [facility] LABORATORY Final Result * THYROID STIM HORMONE, TSH (07/30/2021) Pathologist [facility] TSH 3.500 07/30/2021 us [facility] LABORATORY Final Result * LIPID PANEL (07/30/2021) Pathologist [facility] CHOLESTEROL 175 HDL 37 TRIGLYCERIDES 131 LDL (CALCULATED) 114 07/30/2021 us [facility] LABORATORY Final Result documented in this encounter Visit Diagnoses Not on filedocumented in this encounter Care Teams Prefitter Relationship Specialty Start Date End Date Yash Kang MD [address] [facility] [address] [place] [address] PCP - General INTERNAL MEDICINE 12/02/20 Ziyad Harris MD [address] [place] [address] Referring Physician NEPHROLOGY 07/31/23 documented as of this encounter
--- OUTSIDE RECORDS SUMMARY | 2024-11-13 14:49 | XMS_ITS | Encounter Summary ---
Author Organization [facility] Address [facility] [place] [address] Care Team Providers Care Grant Officer Name Role Phone Yash Knag MD Primary Care Provider [phone] Ziyad Harris MD Unavailable [phone] Encounter Details Date Type Department Care Team (Latest Contact Info) Description 06/05/2022 [employer] Message Enc [facility] Multispecialty Care - [address], [address] [place] [address] Patricio Johnson MD 3 [place], [place] [id number] Post visit response to [id number] injection Social History Tobacco Use Types Packs/Day Years Used Date Smoking Tobacco: Never Smokeless Tobacco: Never Alcohol Use Standard Drinks/Week Comments Yes 0 (1 standard drink = 0.6 oz pur e alcohol) 1 per month Sex and Gender Information Value Date Recorded Sex Assigned at Male 08/20/2024 8:23 AM BINDERY SUPERVISOR Legal Sex Male 7:54 PM CDT Gender Identity Male 09/05/2021 5:16 PM BINDERY SUPERVISOR Sexual Orientation Straight 09/05/2021 5: 16 PM BINDERY SUPERVISOR 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 No / Unsure 06/03/2022 12:59 PM BINDERY SUPERVISOR documented as of this encounter Functional Status * RETIRED Are you deaf or do you have serious difficulty hearing Answer Date of Assessment Author Status No 09/05/2021 5:21 PM BINDERY SUPERVISOR Activ e * RETIRED Are you blind or do you have serious difficulty seeing, even when wearing glasses? Answer Date of Assessment Author Status No 09/05/2021 5:21 PM BINDERY SUPERVISOR Activ e * Do you have serious difficulty walking or climbing stairs? Answer Date of Assessment Author Status No 09/05/2021 5:21 PM BINDERY SUPERVISOR Rachele Santiago RN Active * Do you have difficulty dressing or bathing? Answer Date of Assessment Author Status No 09/05/2021 5:21 PM BINDERY SUPERVISOR Rachele Santiago RN Active * Because of a physical, mental, or emotional condition, do you have difficulty doing errands alone such as visiting a doctor's office or shopping? Answer Date of Assessment Author Status No 09/05/2021 5:21 PM BINDERY SUPERVISOR Rachele Santiago RN Active documented as of this encounter Mental Status * Because of a physical, mental, or emotional condition, do you have serious difficulty concentrating, remembering, or making decisions? Answer Entry Date Author Status No 09/05/2021 5:21 PM BINDERY SUPERVISOR Rachele Santiago RN Active documented in this encounter Plan of Treatment Upcoming Encounters Date Type Department Care Team (Late st Contact Info) Description 01/01/2025 2:00 PM CDT Office Visit [facility] Multispecialty Care - [facility] [address] [facility], [address] [place] [address] Niecy Dillon APRN [address] [facility] [address] [place] [address] 01/27/2025 1:30 PM CDT Office Visit [facility], [address] [place] [address] Odette Levy PA [address] [facility], [address] [place] [address] 02/17/2025 3:20 PM CDT Office Visit [facility] Multispecialty Care - [facility] [address] [facility], [address] [place] [address] Patricio Johnson MD [address] [facility] [address] documented as of this encounter Goals Goal Patient Goal Type Associated Problems Recent Progress Patient-Stated? Author Patient will return to prior living situation and remain independent in ADLs upon discharge from hospital General No Thelma Lemus, RN documented as of this encounter Visit Diagnoses Not on filedocumented in this encounter Care Teams Grant Officer Relationship Specialty Start Date End Date Yash Kang MD [address] [facility] [address] [place] [address] PCP - General INTERNAL MEDICINE 12/02/20 Ziyad Harris MD [address] [place] [address] Referring Physician NEPHROLOGY 07/31/23 documented as of this encounter
--- OUTSIDE RECORDS SUMMARY | 2024-11-13 14:49 | XMS_ITS | Referral Summary ---
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 was usedas a dose optimization technique for this examination. CONTRAST TYPE/DOSE: 100mL of IOVERSOL 350 MG IODINE/ML INTRAVENOUS SYRINGE injected via intravenous COMPARISON: CT abdomen 10/25/2023, 10/19/2022 FINDINGS: KIDNEYS: Focal area of presumed scarring in the interpolarright kidney is grossly unchanged when compared to the prior study measuring 1.8x 0.9 cm (series 3, image 51) compared to 1.5 x 0.9 cm in 2023. Noconcerning enhancement is seen. Cortical and parapelvic cysts in the left kidney are unchanged. No hydronephrosis. ABDOMEN/PELVIS: LOWER CHEST: No significant pulmonary abnormalities. No pleuraleffusion. LIVER: No focal liver lesion. GALLBLADDER: No calcified gallstones. BILE DUCTS: No intrahepatic or extrahepatic ductal dilatation. SPLEEN: Normal size. No focal lesions. PANCREAS: No masses. No adjacent inflammation or peripancreatic fluid collections. No pancreatic ductal dilatation. ADRENALS: Normal. GI: Tiny hiatal hernia. The entire appendix is not included. Nodilated loops of bowel in the partially included abdomen. PERITONEUM: No free air or free fluid in the abdomen. The pelvis is not included. RETROPERITONEUM: No mass or lymphadenopathy. VASCULATURE: Atherosclerotic calcification of the aorta withoutaneurysm. There is a circumaortic left renal vein. MUSCULOSKELETAL: Moderate thoracolumbar spondylosis. OTHER: Small fat containing anterior abdominal wall hernia is unchanged. IMPRESSION: Stable appearance of the focal area of posttreatment change and scarringin the interpolar right kidney. No concerning enhancement is seen. Continued follow-up is recommended. No lymphadenopathy in the abdomen. THIS IS AN ELECTRONICALLY VERIFIED FINAL REPORT 10/29/2024 11:23 AM - Electronically signed by Romario Hill M.D. LB: LB Report ID: [id number] Reading Location: [place] [address] Martínez Soto MD IMG CT PROCEDURES Final Re sult * POCT creatinine for contrast evaluation (10/27/2024 12:25 PM CDT) Creatinine POC 1.10 0.80 - 1.30 mg/dL Comment:Testing performed by : [facility], [address] [place] [address]., [id number] Blood 10/27/2024 12:2 5 PM CDT 10/27/2024 12:25 PM CDT Martínez Soto MD POINT OF CARE TEST ORDERAB LES Final Result [facility] [address] [facility] [place] [address] * EMG/NCV (10/20/2024 9:58 PM CDT) Anatomical Region Laterality Modality Other Narrative 10/20/2024 9:58 PM CDT Masetr Schultz MD PhD 10/20/2024 10:06 PM EMG/NCV - Date/Time: 10/20/2024 9:58 PM Performed by: Master Schultz MD PhD Authorized by: Robbie Walker MD us Robbie Walker MD NEUROLOGY ORDERABLES Final Result * XR Spine Cervical 6 or More Views (08/30/2024 10:09 AM FAMILY AND MARRIAGE COUNSELLOR) Anatomical Region Laterality Modality Spine N/A Computed Radiogr aphy 08/30/2024 10:1 5 AM FAMILY AND MARRIAGE COUNSELLOR Impressions 08/30/2024 10:15 AM FAMILY AND MARRIAGE COUNSELLOR 1. Osteopenia with normal alignment with degenerative endplate changes with disc space narrowing and spondylosis most significant at C6-C7 and less at C5-C6. C7-T1 articulation not seen on the lateral projection. 2. There is mild narrowing of the left C3-C4 foramen by spur. Remainder bilateral intervertebral neural foramina are patent. Electronically signed by: Funmilayo Ascencio M.D. Narrative 08/30/2024 10:15 AM FAMILY AND MARRIAGE COUNSELLOR CERVICAL SPINE 6 OR MORE VIEWS, DATE: 08/30/2024 9:25 AM INDICATION: Cervical radiculopathy. M 54.12 COMPARISON: None TECHNIQUE: AP lateral both oblique and lateral flexion and extension views FINDINGS: There is osteopenia. Normal alignment. Prevertebral soft tissues normal. There are degenerative endplate changes with disc space narrowing and spondylosis at C6-C7 and less at C5-C6. There is no abnormal translation with flexion or extension. C7-T1 articulation not well demonstrated on lateral view. Oblique views demonstrate mild narrowing of the left C3-C4 foramen by spur. Remainder left and right intervertebral neural foramina are intact and patent. Procedure Note Funmilayo Ascencio MD - 08/30/2024 CERVICAL SPINE 6 OR MORE VIEWS, DATE: 08/30/2024 9:25 AM INDICATION: Cervical radiculopathy. M 54.12 COMPARISON: None TECHNIQUE: AP lateral both oblique and lateral flexion and extension views FINDINGS: There is osteopenia. Normal alignment. Prevertebral soft tissues normal. There are degenerative endplate changes with disc space narrowing and spondylosis at C6-C7 and less at C5-C6. There is no abnormal translation with flexion or extension. C7-T1 articulation not well demonstrated on lateral view. Oblique views demonstrate mild narrowing of the left C3-C4 foramen by spur. Remainder left and right intervertebral neural foramina are intact and patent. IMPRESSION: 1. Osteopenia with normal alignment with degenerative endplate changes with disc space narrowing and spondylosis most significant at C6-C7 and less at C5-C6. C7-T1 articulation not seen on the lateral projection. 2. There is mild narrowing of the left C3-C4 foramen by spur. Remainder bilateral intervertebral neural foramina are patent. Electronically signed by: Funmilayo Ascencio M.D. Robbie Walker MD [facility] XR PROCEDURES Final Re sult * Neuro MR Outside Reference (08/26/2024 5:02 PM FAMILY AND MARRIAGE COUNSELLOR) Impressions [facility] - 08/26/2024 5:02 PM FAMILY AND MARRIAGE COUNSELLOR These images are for Reference purposes only and have not been reviewed by [facility] Radiology. There will be no report generated by a [facility] Radiologist. Narrative RAD_[facility] - 08/26/2024 5:02 PM FAMILY AND MARRIAGE COUNSELLOR EXAMINATION: Images For Reference Purposes Only Result [facility] Robbie Walker MD [facility] MRI PROCEDURES Final R esult Performing Organization Address [facility] [address]/ZIP Co de Phone Number RAD_PACS_[facility] * Neuro MR Outside Reference (08/26/2024 5:00 PM FAMILY AND MARRIAGE COUNSELLOR) Impressions RAD[facility] - 08/26/2024 5:00 PM FAMILY AND MARRIAGE COUNSELLOR These images are for Reference purposes only and have not been reviewed by [facility] Radiology. There will be no report generated by a [facility] Radiologist. Narrative RAD_PACS_[facility] - 08/26/2024 5:00 PM FAMILY AND MARRIAGE COUNSELLOR EXAMINATION: Images For Reference Purposes Only Result [facility] Robbie Walker MD [facility] MRI PROCEDURES Final R esult Performing Organization Address City/[facility] [address]/ZIP Co de Phone Number RAD_PACS[facility] * Neuro MR Outside Reference (08/26/2024 4:58 PM FAMILY AND MARRIAGE COUNSELLOR) Impressions [facility] - 08/26/2024 4:58 PM FAMILY AND MARRIAGE COUNSELLOR These images are for Reference purposes only and have not been reviewed by [facility] Radiology. There will be no report generated by a [facility] Radiologist. Narrative [facility] - 08/26/2024 4:58 PM FAMILY AND MARRIAGE COUNSELLOR EXAMINATION: Images For Reference Purposes Only us Robbie Walker MD IMG MRI PROCEDURES Final R esult Performing Organization Address [facility] [address]/[facility] de Phone Number RAD_P[facility] * Neuro MR Outside Reference (08/26/2024 4:57 PM FAMILY AND MARRIAGE COUNSELLOR) Impressions [facility] - 08/26/2024 4:57 PM FAMILY AND MARRIAGE COUNSELLOR These images are for Reference purposes only and have not been reviewed by [facility] Radiology. There will be no report generated by a [facility] Radiologist. Narrative RAD_P[facility] - 08/26/2024 4:57 PM FAMILY AND MARRIAGE COUNSELLOR EXAMINATION: Images For Reference Purposes Only us Robbie Walker MD IMG MRI PROCEDURES Final R esult Performing Organization Address [facility] de Phone Number RAD_PACS[facility] * CT Body Outside Reference (08/26/2024 2:51 PM FAMILY AND MARRIAGE COUNSELLOR) Impressions [facility] - 08/26/2024 2:51 PM FAMILY AND MARRIAGE COUNSELLOR These images are for Reference purposes only and have not been reviewed by [facility] Radiology. There will be no report generated by a [facility] Radiologist. Narrative RAD_PACS_[facility] - 08/26/2024 2:51 PM FAMILY AND MARRIAGE COUNSELLOR EXAMINATION: Images For Reference Purposes Only us Robbie Walker MD IMG CT PROCEDURES Final Re sult Performing Organization Address [facility] [address]/[facility] de Phone Number RAD_PACS_[facility] * Neuro CT Outside Reference (08/26/2024 2:40 PM FAMILY AND MARRIAGE COUNSELLOR) Impressions RAD_PACS[facility] - 08/26/2024 2:40 PM FAMILY AND MARRIAGE COUNSELLOR These images are for Reference purposes only and have not been reviewed by [facility] Radiology. There will be no report generated by a [facility] Radiologist. Narrative RAD_PACS[facility] - 08/26/2024 2:40 PM FAMILY AND MARRIAGE COUNSELLOR EXAMINATION: Images For Reference Purposes Only us Robbie Walker MD IMG CT PROCEDURES Final Re sult RAD_PACS_[facility] from Last [address] [facility] MEDICARE ANTHEM ACCESS CHOICE Advance Directives For more information, please contact: [phone] * Full Code (Latest Code Status on File) Date Activated Date Inactivated Comments 02/10/2021 3:36 PM 02/11/2021 2:36 PM Care Teams Audio Visual Secretary Relationship Specialty Start Date End Date Yash Kang MD [address] [place] [address] PCP - General Emergency Medicine 11/22/19 Patricio Johnson MD [address] [address] Referring Physician Neurology 08/21/24
--- OUTSIDE RECORDS SUMMARY | 2024-11-13 14:49 | XMS_ITS | Encounter Summary ---
Author Organization [facility] Address [address] [place] [address] Care Team Providers Care Post Tronic Machine Operator Name Role Phone Yash Kang MD Primary Care Provider [phone] Ziyad Harris MD Unavailable [phone] Encounter Details Date Type Department Care Team (Late st Contact Info) Description 05/13/2022 BrightWhistle Message Enc [place] [facility], [facility] [address] [place], [place] [id number] Jorge Carrion MD Three [facility]. [facility] [address] [place], [place] [id number] Juan Bloom cat scan of heart/anyuerism? 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 No / Unsure 04/28/2022 10:41 AM CDT documented as of this encounter Functional Status * RETIRED Are you deaf or do you have serious difficulty hearing Answer Date of Assessment Author Status No 09/05/2021 5:21 PM JAVA DEVELOPMENT TEAM LEAD Activ e * RETIRED Are you blind or do you have serious difficulty seeing, even when wearing glasses? Answer Date of Assessment Author Status No 09/05/2021 5:21 PM JAVA DEVELOPMENT TEAM LEAD Activ e * Do you have serious [...] Description 01/01/2025 2:00 PM CDT Office Visit [facility] Multispecialty Care - [facility] [address] [facility], [address] [place] [address] Niecy Dillon APRN 3 [facility] [address] [place] [address] 01/27/2025 1:30 PM CDT Office Visit [facility]av[facility] [facility] [address] [place] [address] Odette Levy PA [address] [facility], [address] [place] [address] 02/17/2025 3:20 PM CDT Office Visit [facility] Multispecialty Care - [facility] [address] [facility], [address] [place] [address] Patricio Johnson MD 3 [facility] [place] [address] documented as of this encounter Goals Goal Patient Goal Type Associated Problems Recent Progress Patient-Stated? Author Patient will return to prior living situation and remain independent in ADLs upon discharge from hospital General Thelma Lemus, RN documented as of this encounter Visit Diagnoses Not on filedocumented in this encounter Care Teams Post Tronic Machine Operator Relationship Specialty Start Date End Date Yash Kang MD [address] [facility] 2 [place] [address] PCP - General INTERNAL MEDICINE 12/02/20 Ziyad Harris MD [address] [place] [address] Referring Physician NEPHROLOGY 07/31/23 documented as of this encounter
--- OUTSIDE RECORDS SUMMARY | 2024-11-13 14:49 | XMS_ITS | Encounter Summary ---
Author Organization [facility] Address [facility] [place] [address] Care Team Providers Care Rotational Moulding Operator Name Role Phone Yash Kang MD Primary Care Provider [phone] Ziyad Harris MD Unavailable [phone] Encounter Details Date Type Department Care Team (Latest Contact Info) Description 08/08/2024 FiscalNote Message [facility] [place] [address] [phone] Mariel [facility] Provider Pain Clinic Referral Social History Tobacco Use Types Packs/Day Years [...] from your doctor or pharmacy? Never 07/03/2024 [facility] Utilities Answer Date Recorded In the past [...] How often do you attend chur or holiness services? More than 4 times per year [...] Recorded Patient Health Questionnaire-2 Score 0 11/06/2023 [facility] [place] of Occupat ional Health - Occupational Stress [...] any time in the past 12 m [facility], were you homeless or living in a group home (including now)? 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 Not on file [...] Assessment Author Status No 07/03/2024 11:00 PM STAIN REMOVER Gazdik, Ana N , RN Active * Do you have difficulty [...] Description 01/01/2025 2:00 PM CDT Office Visit [facility] [address] [facility], [address] [place] [phone] Niecy Dillon APRN 3 [facility] [address] [place], [place] [phone] 01/27/2025 1:30 PM CDT Office Visit [place] [facility] [facility], [address] [place] [address] Odette Levy PA [address] [facility], [address] [place] [address] 02/17/2025 3:20 PM CDT Office Visit [facility] [address] [facility], [address] [place] [phone] Patricio Johnson MD 3 [place], [place] [address] documented as of this encounter Goals Goal [...] on filedocumented in this encounter Care Teams Rotational Moulding Operator Relationship Specialty Start Date End Date Yash Kang MD [address] [facility] 2 [place], [place] [address] PCP - General INTERNAL MEDICINE 12/02/20 Ziyad Harris MD [address] [place], [place] [phone] Referring Physician NEPHROLOGY 07/31/23 documented as of this encounter
--- OUTSIDE RECORDS SUMMARY | 2024-11-13 14:49 | XMS_ITS | Encounter Summary ---
Author Organization [facility] Address [address] [place] [address] Care Team Providers Care Electrical Assembly Supervisor Name Role Phone Yash Kang MD Primary Care Provider [phone] Ziyad Harris MD Unavailable [phone] Encounter Details Date Type Department Care Team (Late st Contact Info) Description 11/10/2021 Fashfix Message Enc [place] [facility] THREE [facility], [facility] [address] [place], [place] [phone] Jorge Carrion MD [facility]. 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 Answer Date of Assessment Author Status No 09/05/2021 5:21 PM HEALTH SERVICE WORKER Activ e * Do you have serious [...] Progress Notes * Elizabeth Guerrero RN - 11/11/2021 9:41 AM CDT . * Sanam Vega NP - 11/11/2021 8:55 AM CDT Clonidine can decrease HR which is why Dr. Harris is titrating you off HR should improve with this If not and recommendation is HM - we can do that but I do feel this is induced by the medication I was not aware of these new changes or referral * Elizabeth Guerrero RN - 11/11/2021 8:47 AM CDT . documented in this encounter Plan of Treatment Upcoming Encounters Date Type Department Care Team (Late st Contact Info) Description 01/01/2025 2:00 PM CDT Office Visit [facility] [address] [facility], [address] [place] [phone] Niecy Dillon APRN [address] [facility] [address] [place] [address] 01/27/2025 1:30 PM CDT Office Visit [place] [facility] [facility], [address] [place], [place] [address] Odette Levy PA [address] [facility], [address] [place] [address] 02/17/2025 3:20 PM CDT Office Visit [facility] [address] [facility], [address] [place] [phone] Patricio Johnson MD 3 [facility] [address] [place], [place] [address] documented as of this encounter Goals Goal Patient Goal Type Associated Problems Recent Progress Patient-Stated? Author Patient will return to prior living situation and remain independent in ADLs upon discharge from hospital General Thelma Landaverde RN documented as of this encounter Visit Diagnoses Not on filedocumented in this encounter Care Teams Electrical Assembly Supervisor Relationship Specialty Start Date End Date Yash Kang MD [address] [place], [place] [phone] PCP - General INTERNAL MEDICINE 12/02/20 Ziyad Harris MD [address] [place] [address] Referring Physician NEPHROLOGY 07/31/23 documented as of this encounter
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
--- OUTSIDE RECORDS SUMMARY | 2024-11-13 14:49 | XMS_ITS | Encounter Summary ---
Author Organization [facility] Address [address] [place] [address] Care Team Providers Care Fence Machine Operator Name Role Phone Yash Kang MD Primary Care Provider [phone] Ziyad Harris MD Unavailable Encounter Details Date Type Department Care Team (Late st Contact Info) Description 10/26/2021 Fever Message Enc [facility] [address] [address] [place], [facility] Provider result Social History Tobacco Use Types Packs/Day Years Used Date Smoking Tobacco: Never Smokeless Tobacco: Never Alcohol Use Standard Drinks/Week Comments Yes 0 (1 standard drink = 0.6 oz pur e alcohol) 1 per month Sex and Gender Information Value Date Recorded Sex Assigned at Male 08/20/2024 8:23 AM EDUCATION INSTRUCTOR Legal Sex Male 7:54 PM CDT Gender Identity Male 09/05/2021 5:16 PM EDUCATION INSTRUCTOR Sexual Orientation Straight 09/05/2021 5: 16 PM EDUCATION INSTRUCTOR 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 Answer Date of Assessment Author Status No 09/05/2021 5:21 PM EDUCATION INSTRUCTOR Activ e * Do you have serious [...] Progress Notes * Sanam Vega NP - 10/27/2021 10:47 AM CDT BP response was normal during testing Target HR during exercise for ages -45 years: 88 to 149 beats per minute. - you plans are appropriate - * Elizabeth Guerrero RN - 10/26/2021 4:50 PM CDT . documented in this encounter Plan of Treatment Upcoming Encounters Date Type Department Care Team (Late st Contact Info) Description 01/01/2025 2:00 PM CDT Office Visit [facility] Medical Group Multispecialty Care - [address], [address] [place] [address] Niecy Dillon APRN 3 [facility] [address] [place] [address] 01/27/2025 1:30 PM CDT Office Visit [facility] THREE [facility] [place] [address] Odette Levy PA 3 [facility], [address] [place] [address] 02/17/2025 3:20 PM CDT Office Visit [facility] Medical Group Multispecialty Care - [facility] [address] [facility], [address] [place] [address] Patricio Johnson MD 3 [facility] [place] [place] [address] documented as of this encounter Goals Goal Patient Goal Type Associated Problems Recent Progress Patient-Stated? Author Patient will return to prior living situation and remain independent in ADLs upon discharge from hospital General No Thelma Lemus, JOSÉ documented as of this encounter Visit Diagnoses Not on filedocumented in this encounter Care Teams Fence Machine Operator Relationship Specialty Start Date End Date Yash Kang MD [address] [facility] 2 [place], [place] [id number] PCP - General INTERNAL MEDICINE 12/02/20 Ziyad Harris MD [address] [place] [address] Referring Physician NEPHROLOGY 07/31/23 documented as of this encounter
--- OUTSIDE RECORDS SUMMARY | 2024-11-13 14:49 | XMS_ITS | Encounter Summary ---
Author Organization [facility] Address [address] [place] [address] Care Team Providers Care Air Purifier Servicer Name Role Phone Yash Kang MD Primary Care Provider [phone] Ziyad Harris MD Unavailable [phone] Encounter Details Date Type Department Care Team (Late st Contact Info) Description 01/18/2022 SecondLeap Message Enc [facility] [address] Sanam Vega NP upcoming appt, follow up -- Blood Tests ? 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 No / Unsure 01/11/2022 5:09 PM CDT documented as of this encounter Functional Status * RETIRED Are you deaf or do you have serious difficulty hearing Answer Date of Assessment Author Status No 09/05/2021 5:21 PM GAS COMPRESSOR OPERATOR Activ e * RETIRED Are you blind or do you have serious difficulty seeing, even when wearing glasses? Answer Date of Assessment Author Status No 09/05/2021 5:21 PM GAS COMPRESSOR OPERATOR Activ e * Do you have [...] Progress Notes * Sanam Vega NP - 01/18/2022 12:22 PM CDT Not at this time - Thanks documented in this encounter Plan of Treatment Upcoming Encounters Date Type Department Care Team (Late st Contact Info) Description 01/01/2025 2:00 PM CDT Office Visit [facility] Medical Group Multispecialty Care - [facility] [address] [facility], [address] [place] [address] Niecy Dillon APRN 3 [facility] [address] [place] [address] 01/27/2025 1:30 PM CDT Office Visit [facility] THREE [facility], [address] [place] [address] Odette Levy PA 3 [facility], [address] [place] [address] 02/17/2025 3:20 PM CDT Office Visit [facility] Medical Group Multispecialty Care - [facility] [address] [facility], [address] [place] [address] Patricio Johnson MD 3 [place] [address] documented as of this encounter Goals Goal Patient Goal Type Associated Problems Recent Progress Patient-Stated? Author Patient will return to prior living situation and remain independent in ADLs upon discharge from hospital General No Thelma Lemus, RN documented as of this encounter Visit Diagnoses Not on filedocumented in this encounter Care Teams Air Purifier Servicer Relationship Specialty Start Date End Date Yash Kang MD [address] [place], [place] [phone] PCP - General INTERNAL MEDICINE 12/02/20 Ziyad Harris MD [address] [place] [address] Referring Physician NEPHROLOGY 07/31/23 documented as of this encounter
--- OUTSIDE RECORDS SUMMARY | 2024-11-13 14:49 | XMS_ITS | Encounter Summary ---
Author Organization [facility] Address [address] [place] [address] Care Team Providers Care Retail Clerk Name Role Phone Yash Kang MD Primary Care Provider [phone] Ziyad Harris MD Unavailable [phone] Encounter Details Date Type Department Care Team (Late st Contact Info) Description 06/29/2023 [employer] Message Enc [facility] Medical Group Multispecialty Care - [facility] [address] [facility], [address] [place] [address] Federica Jha, KRISTIN [address] [place] [address] Juan Bloom phone tag Social History Tobacco Use Types Packs/Day Years Used Date Smoking Tobacco: Never Smokeless Tobacco: Never Comments:NA Alcohol Use Standard Drinks/Week Comments Yes 0 (1 standard drink = 0.6 oz pur e alcohol) Rarely PHQ-2 Answer Date Recorded Patient Health Questionnaire-2 Score 1 09/16/2022 Sex and Gender Information Value Date Recorded Sex Assigned at Male 08/20/2024 8:23 AM APPEALS REVIEWER VETERAN Legal Sex Male 7:54 PM CDT Gender Identity Male 09/05/2021 5:16 PM APPEALS REVIEWER VETERAN Sexual Orientation Straight 09/05/2021 5: 16 PM APPEALS REVIEWER VETERAN 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 Answer Date of Assessment Author Status No 09/05/2021 5:21 PM APPEALS REVIEWER VETERAN Activ e * Do you have serious [...] Progress Notes * Kalyn Deleon RN - 06/30/2023 11:21 AM CST Please review ALS REVIEWER VETERAN documented in this encounter Plan of Treatment Upcoming Encounters Date Type Department Care Team (Late st Contact Info) Description 01/01/2025 2:00 PM CDT Office Visit [facility] Medical Group Multispecialty Care - [facility] [address] [facility] [place], [address] [place] [address] Niecy Dillon APRN [address] [facility] [address] [place] [address] 01/27/2025 1:30 PM CDT Office Visit [facility] [employer] THREE [facility], [address] [place] [address] Odette Levy PA [address] [facility] [place], [address] [place] [address] 02/17/2025 3:20 PM CDT Office Visit [facility] Medical Group Multispecialty Care - [facility] [address] [facility] [place], [address] [place] [address] Patricio Johnson MD 3 [place] [address] documented as of this encounter Goals Goal Patient Goal Type Associated Problems Recent Progress Patient-Stated? Author Patient will return to prior living situation and remain independent in ADLs upon discharge from hospital General Thelma Lemus, RN documented as of this encounter Visit Diagnoses Not on filedocumented in this encounter Care Teams Retail Clerk Relationship Specialty Start Date End Date Yash Kang MD [address] [facility] 2 [place] [address] PCP - General INTERNAL MEDICINE 12/02/20 Ziyad Harris MD [address] [place] [address] Referring Physician NEPHROLOGY 07/31/23 documented as of this encounter
--- OUTSIDE RECORDS SUMMARY | 2024-11-13 14:49 | XMS_ITS | Encounter Summary ---
Author Organization [facility] Address [address] [place] [address] Care Team Providers Care Psychiatric Secretary Name Role Phone Yash Kang MD Primary Care Provider [phone] Ziyad Harris MD Unavailable [phone] Encounter Details Date Type Department Care Team (Late st Contact Info) Description 05/29/2024 [employer] Message Enc [facility] THREE [facility], [address] [address] Odette Levy PA 3 [facility], [address] [place] [id number] Heart monitor and observation Social History Tobacco Use Types Packs/Day Years Used Date Smoking Tobacco: Never Smokeless Tobacco: Never Comments:NA Alcohol Use Standard Drinks/Week Comments Yes 0 (1 standard drink = 0.6 oz pur e alcohol) Rarely PHQ-2 Answer Date Recorded Patient Health Questionnaire-2 Score 0 11/06/2023 Sex and Gender Information Value Date Recorded Sex Assigned at Male 08/20/2024 8:23 AM PHOTOGRAMMETRIC TECH Legal Sex Male 7:54 PM CDT Gender Identity Male 09/05/2021 5:16 PM PHOTOGRAMMETRIC TECH Sexual Orientation Straight 09/05/2021 5: 16 PM PHOTOGRAMMETRIC TECH 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 Answer Date of Assessment Author Status No 09/05/2021 5:21 PM PHOTOGRAMMETRIC TECH Activ e * Do you have serious [...] encounter Progress Notes * TONJA Olivera - 05/30/2024 4:28 PM CST I spoke with patient on the phone and he is agreeable to this plan. Will you please send in a new prescription for 80mg valsartan BID? OGRAMMETRIC TECH * TONJA Olivera - 05/29/2024 12:55 PM CST We can increase his valsartan to 80mg BID to help with the elevated blood pressures in the morning.I would defer to PCP for questions regarding Armodafinil medication. OGRAMMETRIC TECH documented in this encounter Plan of Treatment Upcoming Encounters Date Type Department Care Team (Late st Contact Info) Description 01/01/2025 2:00 PM CDT Office Visit [facility] Medical Group Multispecialty Care - [address] [place] [address] Niecy Dillon APRN 3 [facility] [address] [place] [address] 01/27/2025 1:30 PM CDT Office Visit [facility] THREE [facility], [address] [place] [address] Odette Levy PA 3 [facility], [address] [place] [address] 02/17/2025 3:20 PM CDT Office Visit [facility] Medical Group Multispecialty Care - [facility] 3 [facility], [address] [place] [address] Patricio Johnson MD 3 [facility] [place] [address] documented as of this encounter Goals Goal Patient Goal Type Associated Problems Recent Progress Patient-Stated? Author Patient will return to prior living situation and remain independent in ADLs upon discharge from hospital General No Thelma Lemus RN documented as of this encounter Visit Diagnoses Not on filedocumented in this encounter Care Teams Psychiatric Secretary Relationship Specialty Start Date End Date Yash Kang MD [address] [facility] [facility] 2 [place] [address] PCP - General INTERNAL MEDICINE 12/02/20 Ziyad Harris MD [address] [place] [address] Referring Physician NEPHROLOGY 07/31/23 documented as of this encounter
--- OUTSIDE RECORDS SUMMARY | 2024-11-13 14:49 | XMS_ITS | Encounter Summary ---
Author Organization [facility] Address [address] [place] [address] Care Team Providers Care Coldfusion Name Role Phone Yash Kang MD Primary Care Provider [phone] Ziyad Harris MD Unavailable [phone] Encounter Details Date Type Department Care Team (Late st Contact Info) Description 03/11/2022 Hedgeable Message Enc [place] [facility] [address] [address] Sanam Vega NP Recent COVID-19 Social History Tobacco Use Types Packs/Day Years Used Date Smoking Tobacco: Never Smokeless Tobacco: Never Alcohol Use Standard Drinks/Week Comments Yes 0 (1 standard drink = 0.6 oz pur e alcohol) 1 per month Sex and Gender Information Value Date Recorded Sex Assigned at Male 08/20/2024 8:23 AM AUDIT ASSOCIATE Legal Sex Male 7:54 PM CDT Gender Identity Male 09/05/2021 5:16 PM AUDIT ASSOCIATE Sexual Orientation Straight 09/05/2021 5: 16 PM AUDIT ASSOCIATE 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 Answer Date of Assessment Author Status No 09/05/2021 5:21 PM AUDIT ASSOCIATE Activ e * Do you have serious [...] Notes * Sanam Vega NP - 03/11/2022 12:24 PM CDT Noted - Thank you for update documented in this encounter Plan of Treatment Upcoming Encounters Date Type Department Care Team (Late st Contact Info) Description 01/01/2025 2:00 PM CDT Office Visit [facility] Medical Group Multispecialty Care - [facility] 3 [facility], [address] [place] [address] Niecy Dillon APRN 3 [facility] [address] [place] [address] 01/27/2025 1:30 PM CDT Office Visit [facility] THREE [facility], [address] [place] [address] Odette Levy PA 3 [facility], [address] [place] [address] 02/17/2025 3:20 PM CDT Office Visit [facility] Medical Group Multispecialty Care - [facility] 3 [facility], [address] [place] [address] Patricio Johnson MD 3 [facility] [place] [address] documented as of this encounter Goals Goal Patient Goal Type Associated Problems Recent Progress Patient-Stated? Author Patient will return to prior living situation and remain independent in ADLs upon discharge from hospital General No Thelma Lemus, RN documented as of this encounter Visit Diagnoses Not on filedocumented in this encounter Care Teams Coldfusion Relationship Specialty Start Date End Date Yash Kang MD [address] [place], [place] [id number] PCP - General INTERNAL MEDICINE 12/02/20 Ziyad Harris MD [address] [place] [address] Referring Physician NEPHROLOGY 07/31/23 documented as of this encounter
--- OUTSIDE RECORDS SUMMARY | 2024-11-13 14:49 | XMS_ITS | Encounter Summary ---
Author Organization [facility] Address [address] [place] [address] Care Team Providers Care Pie Filler Name Role Phone Yash Kang MD Primary Care Provider [phone] Ziyad Harris MD Unavailable [phone] Encounter Details Date Type Department Care Team (Late st Contact Info) Description 10/21/2021 [employer] Message Enc [place] [facility] THREE [facility], [facility] [address] [place], [place] [phone] Jorge Carrion MD [facility]. 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 No / Unsure 10/21/2021 10:12 PM CDT documented as of this encounter Functional Status * RETIRED Are you deaf or do you have serious difficulty hearing Answer Date of Assessment Author Status No 09/05/2021 5:21 PM WHITE SUGAR SUPERVISOR Activ e * RETIRED Are you blind or do you have serious difficulty seeing, even when wearing glasses? Answer Date of Assessment Author Status No 09/05/2021 5:21 PM WHITE SUGAR SUPERVISOR Activ e * Do you have [...] Description 01/01/2025 2:00 PM CDT Office Visit [facility] Medical Group Multispecialty Care - [facility] 3 [facility], [address] [place] [address] Niecy Dillon APRN 3 [facility] [address] [place] [address] 01/27/2025 1:30 PM CDT Office Visit [facility] THREE [facility], [address] [place] [address] Odette Levy PA 3 [facility], [address] [place] [address] 02/17/2025 3:20 PM CDT Office Visit [facility] Medical Group Multispecialty Care - [facility] [address] [facility], [address] [place] [address] Patricio Johnson MD 3 [facility] [place] [address] documented as of this encounter Goals Goal Patient Goal Type Associated Problems Recent Progress Patient-Stated? Author Patient will return to prior living situation and remain independent in ADLs upon discharge from hospital General Thelma Lemus, RN documented as of this encounter Visit Diagnoses Not on filedocumented in this encounter Care Teams Pie Filler Relationship Specialty Start Date End Date Yash Kang MD [address] [facility] 2 [place] [address] PCP - General INTERNAL MEDICINE 12/02/20 Ziyad Harris MD [address] [place] [address] Referring Physician NEPHROLOGY 07/31/23 documented as of this encounter
--- OUTSIDE RECORDS SUMMARY | 2024-11-13 14:49 | XMS_ITS | Encounter Summary ---
Author Organization [facility] Address [facility] [place] [address] Care Team Providers Care Grey Inspector Name Role Phone Yash Kang MD Primary Care Provider + [phone] Ziyad Harris MD Unavailable [phone] Reason for Referral * Surgical (Routine) - Closed Specialty Diagnoses / Procedures Referred By Wolf prabhakar Referred To Contact Diagnoses Cervical radiculopathy Procedures Case request operating room: INJECTION EPIDURAL STEROID CERVICAL C6-7 Tanisha Gordon APNP Phone: tel: fax: Referral ID Status Reason Start Date Expiration Date Visits Re quested Visits Authorized [id number] Closed 05/18/2022 05/18/2023 1 1 Encounter Details Date Type Department Care Team (Late st Contact Info) Description 05/18/2022 Prep for Procedure [facility] [place] [address] [id number] Tanisha Gordon APNP [address] [place] [phone] Social History Tobacco Use Types Packs/Day Years Used Date Smoking Tobacco: Never Smokeless Tobacco: Never Alcohol Use Standard Drinks/Week Comments Yes 0 (1 standard drink = 0.6 oz pur e alcohol) 1 per month Sex and Gender Information Value Date Recorded Sex Assigned at Male 08/20/2024 8:23 AM APPLIED COMPUTER SCIENCE PROFESSOR Legal Sex Male 7:54 PM CDT Gender Identity Male 09/05/2021 5:16 PM APPLIED COMPUTER SCIENCE PROFESSOR Sexual Orientation Straight 09/05/2021 5: 16 PM APPLIED COMPUTER SCIENCE PROFESSOR 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 No / Unsure 05/18/2022 7:07 AM CDT documented as of this encounter Functional Status * RETIRED Are you deaf or do you have serious difficulty hearing Answer Date of Assessment Author Status No 09/05/2021 5:21 PM APPLIED COMPUTER SCIENCE PROFESSOR Activ e * RETIRED Are you blind or do you have serious difficulty seeing, even when wearing glasses? Answer Date of Assessment Author Status No 09/05/2021 5:21 PM APPLIED COMPUTER SCIENCE PROFESSOR Activ e * Do you have serious difficulty walking or climbing stairs? Answer Date of Assessment Author Status No 09/05/2021 5:21 PM APPLIED COMPUTER SCIENCE PROFESSOR Rachele Santiago RN Active * Do you [...] 5:21 PM Rachele Silva RN Active * Calculated C-SSRS Risk Score (Lifetime/Recent) Answer Date of Assessment Author Status No Risk Indicated 05/18/2022 7:24 AM CDT Anca Marmolejo RN Active * [place]gen Suicide Severity Rating Scale (Screener/Recent Self-Report) Question Answer Date of Assessment Author Status 1. Wish to be (Past 1 Month) No 05/18/2022 7:24 AM CDT Ximena Marmolejo RN Ac tive 2. Non-Specific Active Suicidal Thoughts (Past 1 Month) No 05/18/2022 7:24 AM CDT Ximena Marmolejo RN Ac tive 6. Suicidal Behavior (Lifetime) No 05/18/2022 7:24 AM CDT Ximena Marmolejo RN Ac tive documented as of this encounter Mental Status * Because of a physical, mental, or emotional condition, do you have serious difficulty concentrating, remembering, or making decisions? Answer Entry Date Author Status No 09/05/2021 5:21 PM APPLIED COMPUTER SCIENCE PROFESSOR Rachele Santiago RN Active documented in this encounter Plan of Treatment Upcoming Encounters Date Type Department Care Team (Late st Contact Info) Description 01/01/2025 2:00 PM CDT Office Visit [facility] - [facility] 3 [facility], [address] [place] [phone] Niecy Dillon APRN 3 [facility] [address] [place] [address] 01/27/2025 1:30 PM CDT Office Visit [facility] THREE [facility], [address] [place] [address] Odette Levy PA 3 [facility], [address] [place] [address] 02/17/2025 3:20 PM CDT Office Visit [facility] - [facility] 3 [facility], [address] [place] [phone] Patricio Johnson MD 3 [place] [address] Scheduled Orders Name Type Priority Associated Diagnoses Orde r Schedule Case request operating room: INJECTION EPIDURAL STEROID CERVICAL C6-7 Case Request Routine Cervical radiculopathy Once for 1 Occurrences starting 05/18/2022 until 05/18/2022 documented as of this encounter Goals Goal Patient Goal Type Associated Problems Recent Progress Patient-Stated? Author Patient will return to prior living situation and remain independent in ADLs upon discharge from [facility] Thelma Lemus RN documented as of this encounter Visit Diagnoses Diagnosis Cervical radiculopathy- Primary Brachial neuritis or radiculitis nos documented in this encounter Care Teams Grey Inspector Relationship Specialty Start Date End Date Yash Kang MD [address] [facility] [address] [place] [address] PCP - General INTERNAL MEDICINE 12/02/20 Ziyad Harris MD [address] [place] [address] Referring Physician NEPHROLOGY 07/31/23 documented as of this encounter
--- OUTSIDE RECORDS SUMMARY | 2024-11-13 14:49 | XMS_ITS | Encounter Summary ---
Author Organization [facility] Address [facility] [place] [address] Care Team Providers Care Barrel Maker Name Role Phone Yash Kang MD Primary Care Provider [phone] Ziyad Harris MD Unavailable [phone] Encounter Details Date Type Department Care Team (Late st Contact Info) Description 07/05/2024 PBworks Message Enc [place] [facility], [facility] [address] [place], [place] [phone] Jorge Carrion MD [facility]. [facility] [address] [place], [place] [phone] CDU 2 Observations Social History Tobacco Use Types Packs/Day Years [...] from your doctor or pharmacy? Never 07/03/2024 [facility] Utilities Answer Date Recorded In the [...] 07/03/2024 How often do you attend chur ch or taoist services? More than 4 times per year 07/03/2024 Do you belong to any clubs o r organizations such as roman catholic groups, unions, fraternal or athletic groups, or [...] Recorded Patient Health Questionnaire-2 Score 0 11/06/2023 [facility] [place] of Occupat ional Health - Occupational Stress [...] any time in the past 12 m [facility], were you homeless or living in a intermediate (including now)? No 07/03/2024 Sex and Gender Information Value Date Recorded Sex Assigned at Male 08/20/2024 8:23 AM LAY OUT AND DETAIL DRAFTER Legal Sex Male 7:54 PM CDT Gender Identity Male 09/05/2021 5:16 PM LAY OUT AND DETAIL DRAFTER Sexual Orientation Straight 09/05/2021 5: 16 PM LAY OUT AND DETAIL DRAFTER Occupation Industry Job Start Date Job End [...] Assessment Author Status No 07/03/2024 11:00 PM LAY OUT AND DETAIL DRAFTER Gazdik, Ana N , RN Active * Do you have serious [...] Description 01/01/2025 2:00 PM CDT Office Visit [facility] 3 [facility], [address] [place] [phone] Niecy Dillon APRN 3 [facility] [address] [place] [address] 01/27/2025 1:30 PM CDT Office Visit [facility] [facility], [address] [place] [address] Odette Levy PA 3 [facility], [address] [place] [address] 02/17/2025 3:20 PM CDT [facility] 3 [facility], [address] [place] [phone] Patricio Johnson MD 3 [place] [address] documented as of this encounter Goals Goal [...] on filedocumented in this encounter Care Teams Barrel Maker Relationship Specialty Start Date End Date Yash Kang MD [address] [facility] [address] [place] [address] PCP - General INTERNAL MEDICINE 12/02/20 Ziyad Harris MD [address] [place] [address] Referring Physician NEPHROLOGY 07/31/23 documented as of this encounter
--- OUTSIDE RECORDS SUMMARY | 2024-11-13 14:49 | XMS_ITS | Encounter Summary ---
Author Organization [facility] Address [facility] [place] [address] Care Team Providers Care Deputy Fire Chief Name Role Phone Yash Kang MD Primary Care Provider [phone] Ziyad Harris MD Unavailable [phone] Encounter Details Date Type Department Care Team (Late st Contact Info) Description 07/03/2024 Cerecor Message Enc [place] [facility], [facility] [address] [place], [place] [phone] Jorge Carrion MD [facility]. [facility] [address] [place], [place] [phone] Juan Bloom in ER awareness Social History Tobacco Use Types Packs/Day Years [...] from your doctor or pharmacy? Never 07/03/2024 [facility] Utilities Answer Date Recorded In the past [...] How often do you attend chur or jew services? More than 4 times per year 07/03/2024 Do you belong to any clubs o r organizations such as christianity groups, unions, fraternal or athletic groups, or [...] Recorded Patient Health Questionnaire-2 Score 0 11/06/2023 [facility] of Occupat ional Health - Occupational Stress [...] time in the past 12 m [facility], were you homeless or living in a custodial (including now)? 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 Answer Date of Assessment Author Status No 09/05/2021 5:21 PM STRAIGHTENING PRESS OPERATOR Activ e * Do you have [...] 11:00 PM Ana Muñoz RN Ac tive Are you blind or do you have serious difficulty seeing, even when wearing glasses? No 07/03/2024 11:00 PM STRAIGHTENING PRESS OPERATOR Gazdik, Ana N, RN Ac tive * Calculated C-SSRS Risk Score (Lifetime/Recent) Answer Date of Assessment Author Status No Risk Indicated 07/03/2024 12:31 PM Simin Carmona RN Active * [place] Suicide Severity Rating Scale (Screener/Recent Self-Report) Question Answer Date of Assessment Author Status 1. Wish to be (Past 1 Month) No 07/03/2024 12:31 PM Neyda Carmona RN Ac tive 2. Non-Specific Active Suicidal Thoughts (Past 1 Month) No 07/03/2024 12:31 PM Neyda Carmona RN Ac tive 6. Suicidal Behavior (Lifetime) No 07/03/2024 12:31 PM Neyda Carmona RN Ac tive documented as of this [...] Description 01/01/2025 2:00 PM CDT Office Visit [facility] - [facility] 3 [facility], [address] [place] [phone] Niecy Dillon APRN 3 [facility] [address] [place], [place] [address] 01/27/2025 1:30 PM CDT Office Visit [facility] [facility], [address] [place] [address] Odette Levy PA 3 [facility], [address] [place] [address] 02/17/2025 3:20 PM CDT Office Visit [facility] Medical [facility] Multispecialty Care - [facility] 3 [facility], [address] [place] [address] Patricio Johnson MD 3 [place] [address] documented as of this encounter Goals Goal [...] on filedocumented in this encounter Care Teams Deputy Fire Chief Relationship Specialty Start Date End Date Yash Kang MD [address] [place] [address] PCP - General INTERNAL MEDICINE 12/02/20 Ziyad Harris MD [address] [facility] [address] [place] [address] Referring Physician NEPHROLOGY 07/31/23 documented as of this encounter
--- OUTSIDE RECORDS SUMMARY | 2024-11-13 14:49 | XMS_ITS | Encounter Summary ---
Author Organization [facility] Address [address] [place] [address] Care Team Providers Care Gas Distribution Supervisor Name Role Phone Yash Kang MD Primary Care Provider [phone] Ziyad Harris MD Unavailable [phone] Encounter Details Date Type Department Care Team (Late st Contact Info) Description 01/17/2024 Educerus Message Enc [place] [facility], [facility] [address] [place], [place] [phone] Jorge Carrion MD [facility]. [facility] [address] [place], [place] [phone] post appointment blood pressure Social History Tobacco Use Types Packs/Day Years Used Date Smoking Tobacco: Never Smokeless Tobacco: Never Comments:NA Alcohol Use Standard Drinks/Week Comments Yes 0 (1 standard drink = 0.6 oz pur e alcohol) Rarely PHQ-2 Answer Date Recorded Patient Health Questionnaire-2 Score 0 11/06/2023 Sex and Gender Information Value Date Recorded Sex Assigned at Male 08/20/2024 8:23 AM COMMUNITY ACTION WORKER Legal Sex Male 7:54 PM CDT Gender Identity Male 09/05/2021 5:16 PM COMMUNITY ACTION WORKER Sexual Orientation Straight 09/05/2021 5: 16 PM COMMUNITY ACTION WORKER 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 Answer Date of Assessment Author Status No 09/05/2021 5:21 PM COMMUNITY ACTION WORKER Activ e * Do you have [...] Progress Notes * Elizabeth Guerrero RN - 01/17/2024 8:38 AM CDT FYI documented in this encounter Plan of Treatment Upcoming Encounters Date Type Department Care Team (Late st Contact Info) Description 01/01/2025 2:00 PM CDT Office Visit [facility] Medical [facility] Multispecialty Care - [facility] 3 [facility], [address] [place] [address] Niecy Dillon APRN 3 [facility] [address] [place] [address] 01/27/2025 1:30 PM CDT Office Visit [facility] THREE [facility], [address] [place] [address] Odette Levy PA 3 [facility], [address] [place] [address] 02/17/2025 3:20 PM CDT Office Visit [facility] Medical Group Multispecialty Care - [facility] 3 [facility], [address] [place] [address] Patricio Johnson MD 3 [facility] [address] documented as of this encounter Goals Goal Patient Goal Type Associated Problems Recent Progress Patient-Stated? Author Patient will return to prior living situation and remain independent in ADLs upon discharge from hospital General No Thelma Lemus, RN documented as of this encounter Visit Diagnoses Not on filedocumented in this encounter Care Teams Gas Distribution Supervisor Relationship Specialty Start Date End Date Yash Kang MD [address] [place] [address] PCP - General INTERNAL MEDICINE 12/02/20 Ziyad Harris MD [address] [place] [address] Referring Physician NEPHROLOGY 07/31/23 documented as of this encounter
--- OUTSIDE RECORDS SUMMARY | 2024-11-13 14:49 | XMS_ITS | Encounter Summary ---
Author Organization [facility] Address [address] [place] [address] Care Team Providers Care Book Trimmer Name Role Phone Yash Kang MD Primary Care Provider [phone] Ziyad Harris MD Unavailable [phone] Encounter Details Date Type Department Care Team (Late st Contact Info) Description 06/03/2024 Lasso Media Message Enc [place] [facility] THREE [facility], [address] [phone] Odette Levy PA 3 [facility], [address] [place] [id number] Heart rhythm diagnostics monitoring Social History Tobacco Use Types Packs/Day Years Used Date Smoking Tobacco: Never Smokeless Tobacco: Never Comments:NA Alcohol Use Standard Drinks/Week Comments Yes 0 (1 standard drink = 0.6 oz pur e alcohol) Rarely PHQ-2 Answer Date Recorded Patient Health Questionnaire-2 Score 0 11/06/2023 Sex and Gender Information Value Date Recorded Sex Assigned at Male 08/20/2024 8:23 AM BULL LADLE TENDER Legal Sex Male 7:54 PM CDT Gender Identity Male 09/05/2021 5:16 PM BULL LADLE TENDER Sexual Orientation Straight 09/05/2021 5: 16 PM BULL LADLE TENDER 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 Answer Date of Assessment Author Status No 09/05/2021 5:21 PM BULL LADLE TENDER Activ e * Do you have serious [...] Description 01/01/2025 2:00 PM CDT Office Visit [facility] Medical Group Multispecialty Care - [facility] 3 [facility], [address] [place] [address] Niecy Dillon APRN 3 [facility] [address] [place] [address] 01/27/2025 1:30 PM CDT Office Visit [facility] THREE [facility], [address] [place] [address] Odette Levy PA 3 [facility], [address] [place] [address] 02/17/2025 3:20 PM CDT Office Visit [facility] Medical Group Multispecialty Care - [facility] 3 [facility], [address] [place] [phone] Patricio Johnson MD 3 [place] [address] documented as of this encounter Goals Goal Patient Goal Type Associated Problems Recent Progress Patient-Stated? Author Patient will return to prior living situation and remain independent in ADLs upon discharge from hospital General Thelma Landaverde, JOSÉ documented as of this encounter Visit Diagnoses Not on filedocumented in this encounter Care Teams Book Trimmer Relationship Specialty Start Date End Date Yash Kang MD [address] [facility] 2 [place] [address] PCP - General INTERNAL MEDICINE 12/02/20 Ziyad Harris MD [address] [place] [address] Referring Physician NEPHROLOGY 07/31/23 documented as of this encounter
--- OUTSIDE RECORDS SUMMARY | 2024-11-13 14:49 | XMS_ITS | Encounter Summary ---
Author Organization [facility] Address [facility] [place] [address] Care Team Providers Care Trim Stencil Maker Name Role Phone Yash Kang MD Primary Care Provider [phone] Ziyad Harris MD Unavailable [phone] Encounter Details Date Type Department Care Team (Late st Contact Info) Description 06/16/2022 e-channel Message Enc [place] [facility]'[address] [address] Sanam Vega NP Here for cat scan. But canceled. 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 No / Unsure 06/16/2022 8:48 AM MOVIE PRODUCER documented as of this encounter Functional Status * RETIRED Are you deaf or do you have serious difficulty hearing Answer Date of Assessment Author Status No 09/05/2021 5:21 PM MOVIE PRODUCER Activ e * RETIRED Are you blind or do you have serious difficulty seeing, even when wearing glasses? Answer Date of Assessment Author Status No 09/05/2021 5:21 PM MOVIE PRODUCER Activ e * Do you have serious difficulty walking or climbing stairs? Answer Date of Assessment Author Status No 09/05/2021 5:21 PM MOVIE PRODUCER Rachele Santiago RN Active * Do you have difficulty dressing or bathing? Answer Date of Assessment Author Status No 09/05/2021 5:21 PM MOVIE PRODUCER Rachele Santiago RN Active * Because of a physical, mental, or emotional condition, do you have difficulty doing errands alone such as visiting a doctor's office or shopping? Answer Date of Assessment Author Status No 09/05/2021 5:21 PM MOVIE PRODUCER Rachele Santiago RN Active documented as of this encounter Mental Status * Because of a physical, mental, or emotional condition, do you have serious difficulty concentrating, remembering, or making decisions? Answer Entry Date Author Status No 09/05/2021 5:21 PM MOVIE PRODUCER Rachele Santiago RN Active documented in this encounter Progress Notes * Elizabeth Guerrero RN - 06/16/2022 4:01 PM CST . E PRODUCER * Sanam Vega NP - 06/16/2022 12:22 PM CST I do not see that this was cancelled Was it completed or not - it states exam ended E PRODUCER * Elizabeth Guerrero RN - 06/16/2022 12:15 PM CST He showed up for his ct scan this morning and I guess he is saying it was cancelled with no notice?? E PRODUCER * Sanam Vega NP - 06/16/2022 12:07 PM CST Not sure what this is for? E PRODUCER documented in this encounter Plan of Treatment Upcoming Encounters Date Type Department Care Team (Late st Contact Info) Description 01/01/2025 2:00 PM CDT Office Visit [facility] 3 [facility], [address] [place] [phone] Niecy Dillon APRN 3 [facility] [address] [place] [address] 01/27/2025 1:30 PM CDT Office Visit [place] [facility] [address] [facility] [address], [address] [place] [address] Odette Levy PA 3 [facility], [address] [place] [address] 02/17/2025 3:20 PM CDT Office Visit [facility] 3 [facility], [address] [place] [phone] Patricio Johnson MD [address] [facility] [place] [address] documented as of this encounter Goals Goal Patient Goal Type Associated Problems Recent Progress Patient-Stated? Author Patient will return to prior living situation and remain independent in ADLs upon discharge from [facility] General No Thelma Lemus, RN documented as of this encounter Visit Diagnoses Not on filedocumented in this encounter Care Teams Trim Stencil Maker Relationship Specialty Start Date End Date Yash Kang MD [address] [place], [place] [phone] PCP - General INTERNAL MEDICINE 12/02/20 Ziyad Harris MD [address] [place] [address] Referring Physician NEPHROLOGY 07/31/23 documented as of this encounter
--- OUTSIDE RECORDS SUMMARY | 2024-11-13 14:49 | XMS_ITS | Encounter Summary ---
Author Organization [facility] Address [address] [place] [address] Care Team Providers Care Clothespin Machine Operator Name Role Phone Yash Kang MD Primary Care Provider [phone] Ziyad Harris MD Unavailable [phone] Encounter Details Date Type Department Care Team (Late st Contact Info) Description 01/27/2024 Authen[employer] Message Enc [facility] Orthopedic & Sports Medicine - [place] [address] [place], [place] [address] [phone] Ke Razo MD [address] [place] [address] Juan Bloom schedule for surgery late February ???-- broken left elbow Social History Tobacco Use Types Packs/Day Years Used Date Smoking Tobacco: Never Smokeless Tobacco: Never Comments:NA Alcohol Use Standard Drinks/Week Comments Yes 0 (1 standard drink = 0.6 oz pur e alcohol) Rarely PHQ-2 Answer Date Recorded Patient Health Questionnaire-2 Score 0 11/06/2023 Sex and Gender Information Value Date Recorded Sex Assigned at Male 08/20/2024 8:23 AM QUITLINE COUNSELOR Legal Sex Male 7:54 PM CDT Gender Identity Male 09/05/2021 5:16 PM QUITLINE COUNSELOR Sexual Orientation Straight 09/05/2021 5: 16 PM QUITLINE COUNSELOR 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 Answer Date of Assessment Author Status No 09/05/2021 5:21 PM QUITLINE COUNSELOR Activ e * Do you have serious [...] Description 01/01/2025 2:00 PM CDT Office Visit [facility] Multispecialty Care - [facility] [address], [address] [place] [address] Niecy Dillon APRN [address] [facility] [address] [place] [address] 01/27/2025 1:30 PM CDT Office Visit [facility] THREE [facility], [address] [place] [address] Odette Levy PA [address], [address] [place] [address] 02/17/2025 3:20 PM CDT Office Visit [facility] Multispecialty Care - [facility] [address], [address] [place] [address] Patricio Johnson MD 3 [facility] [place] [address] documented as of this encounter Goals Goal Patient Goal Type Associated Problems Recent Progress Patient-Stated? Author Patient will return to prior living situation and remain independent in ADLs upon discharge from hospital General Thelma Landaverde RN documented as of this encounter Visit Diagnoses Not on filedocumented in this encounter Care Teams Clothespin Machine Operator Relationship Specialty Start Date End Date Yash Kang MD [address] [facility] 2 [place] [address] PCP - General INTERNAL MEDICINE 12/02/20 Ziyad Harris MD [address] [place] [address] Referring Physician NEPHROLOGY 07/31/23 documented as of this encounter
--- OUTSIDE RECORDS SUMMARY | 2024-11-13 14:49 | XMS_ITS | Encounter Summary ---
Author Organization [facility] Address [facility] [place] [address] Care Team Providers Care Laser Engineer Name Role Phone Yash Kang MD Primary Care Provider [phone] Ziyad Harris MD Unavailable [phone] Encounter Details Date Type Department Care Team (Late st Contact Info) Description 08/14/2024 [employer] Message Enc [facility] Medical [facility] Call Center [address] [place] [phone] [place], [facility] Provider potassium chloride CR (CASSY Ruiz) 20 MEQ tablet Social History Tobacco Use Types Packs/Day Years [...] from your doctor or pharmacy? Never 07/03/2024 [facility] Utilities Answer Date Recorded In the past 12 months has e electric, gas, oil, or water [employer] threatened to shut off services in your [...] How often do you attend chur or restoration services? More than 4 times per year 07/03/2024 Do you belong to any clubs o r organizations such as voodoo groups, unions, fraternal or athletic groups, or [...] Recorded Patient Health Questionnaire-2 Score 0 11/06/2023 [facility] of Occupat ional Health - Occupational Stress [...] any time in the past 12 m [facility], were you homeless or living in a custodial (including now)? 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 [address] [facility], [address] [place] [phone] Niecy Dillon APRN 3 [facility] [address] [place] [address] 01/27/2025 1:30 PM CDT [facility], [address] [place] [address] Odette Levy PA [address] [facility], [address] [place] [address] 02/17/2025 3:20 PM CDT Office Visit [facility] [address] [facility] [address], [address] [place] [address] Patricio Johnson MD 3 [place] [address] documented as of this encounter Goals Goal [...] on filedocumented in this encounter Care Teams Laser Engineer Relationship Specialty Start Date End Date Yash Kang MD [address] [facility] 2 [place] [address] PCP - General INTERNAL MEDICINE 12/02/20 Ziyad Harris MD [address] [place] [address] Referring Physician NEPHROLOGY 07/31/23 documented as of this encounter
--- OUTSIDE RECORDS SUMMARY | 2024-11-13 14:49 | XMS_ITS | Encounter Summary ---
Author Organization [facility] Address [address] [place] [address] Care Team Providers Care Receiver Stocker Name Role Phone Yash Kang MD Primary Care Provider [phone] Ziyad Harris MD Unavailable [phone] Encounter Details Date Type Department Care Team (Late st Contact Info) Description 06/13/2022 [employer] Message Enc [facility], [facility] [address] [place], [place] [phone] Jorge Carrion MD Three [facility]. [facility] [address] [place], [place] [phone] [facility] ??? 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 No / Unsure 06/16/2022 8:48 AM MARKETING RECRUITER documented as of this encounter Functional Status * RETIRED Are you deaf or do you have serious difficulty hearing Answer Date of Assessment Author Status No 09/05/2021 5:21 PM MARKETING RECRUITER Activ e * RETIRED Are you blind or do you have serious difficulty seeing, even when wearing glasses? Answer Date of Assessment Author Status No 09/05/2021 5:21 PM MARKETING RECRUITER Activ e * Do you have serious difficulty walking or climbing stairs? Answer Date of Assessment Author Status No 09/05/2021 5:21 PM MARKETING RECRUITER Rachele Santiago RN Active * Do you [...] Notes * Elizabeth Guerrero RN - 06/16/2022 8:40 AM CST . ETING RECRUITER * Elizabeth Guerrero RN - 06/13/2022 11:29 AM CST Please advise. Letter and mychart and saying 2 different dates/times. Thanks! ETING RECRUITER documented in this encounter Plan of Treatment Upcoming Encounters Date Type Department Care Team (Late st Contact Info) Description 01/01/2025 2:00 PM CDT [facility] [address] [facility], [address] [place] [address] Niecy Dillon APRN 3 [facility] [address] [place] [address] 01/27/2025 1:30 PM CDT Office Visit [facility] [facility], [address] [place] [address] Odette Levy PA 3 [facility], [address] [place] [address] 02/17/2025 3:20 PM CDT [facility] [address] [facility], [address] [place] [address] Patricio Johnson MD 3 [facility] [place] [address] documented as of this encounter Goals Goal Patient Goal Type Associated Problems Recent Progress Patient-Stated? Author Patient will return to prior living situation and remain independent in ADLs upon discharge from hospital General No Thelma Lemus RN documented as of this encounter Visit Diagnoses Not on filedocumented in this encounter Care Teams Receiver Stocker Relationship Specialty Start Date End Date Yash Kang MD [address] [place] [address] PCP - General INTERNAL MEDICINE 12/02/20 Ziyad Harris MD [address] [place] [address] Referring Physician NEPHROLOGY 07/31/23 documented as of this encounter
--- OUTSIDE RECORDS SUMMARY | 2024-11-13 14:49 | XMS_ITS | Encounter Summary ---
Author Organization [facility] Address [address] [place] [address] Care Team Providers Care Psychiatric Assistant Name Role Phone Yash Kang MD Primary Care Provider [phone] Ziyad Harris MD Unavailable [phone] Encounter Details Date Type Department Care Team (Late st Contact Info) Description 04/12/2024 Adventorist Message Enc [facility] Orthopedic & Sports Medicine - [place] [address] [place] [address] Ke Razo MD [address] [place] [address] Physical therapy treatment Social History Tobacco Use Types Packs/Day Years Used Date Smoking Tobacco: Never Smokeless Tobacco: Never Comments:NA Alcohol Use Standard Drinks/Week Comments Yes 0 (1 standard drink = 0.6 oz pur e alcohol) Rarely PHQ-2 Answer Date Recorded Patient Health Questionnaire-2 Score 0 11/06/2023 Sex and Gender Information Value Date Recorded Sex Assigned at Male 08/20/2024 8:23 AM PRE KINDERGARTEN TEACHER Legal Sex Male 7:54 PM CDT Gender Identity Male 09/05/2021 5:16 PM PRE KINDERGARTEN TEACHER Sexual Orientation Straight 09/05/2021 5: 16 PM PRE KINDERGARTEN TEACHER 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 Answer Date of Assessment Author Status No 09/05/2021 5:21 PM PRE KINDERGARTEN TEACHER Activ e * Do you have serious [...] Description 01/01/2025 2:00 PM CDT Office Visit [facility] Multispecialty Care - [facility] [address] [facility], [address] [place] [address] Niecy Dillon APRN 3 [facility] [address] [place] [address] 01/27/2025 1:30 PM CDT Office Visit [facility] THREE [facility], [address] [place] [address] Odette Levy PA 3 [facility], [address] [place] [address] 02/17/2025 3:20 PM CDT Office Visit [facility] Multispecialty Care - [facility] [address] [facility], [address] [place] [address] Patricio Johnson MD 3 [facility] [place] [address] documented as of this encounter Goals Goal Patient Goal Type Associated Problems Recent Progress Patient-Stated? Author Patient will return to prior living situation and remain independent in ADLs upon discharge from hospital General No Thelma Lemus, RN documented as of this encounter Visit Diagnoses Not on filedocumented in this encounter Care Teams Psychiatric Assistant Relationship Specialty Start Date End Date Yash Kang MD [address] [facility] 2 [place] [address] PCP - General INTERNAL MEDICINE 12/02/20 Ziyad Harris MD [address] [place] [address] Referring Physician NEPHROLOGY 07/31/23 documented as of this encounter
--- OUTSIDE RECORDS SUMMARY | 2024-11-13 14:49 | XMS_ITS | Encounter Summary ---
Author Organization [facility] Address [address] [place] [address] Care Team Providers Care Almond Grinder Name Role Phone Yash Kang MD Primary Care Provider [phone] Ziyad Harris MD Unavailable [phone] Encounter Details Date Type Department Care Team (Late st Contact Info) Description 05/17/2024 Dormzy Message Enc [facility] THREE [facility], [address] [id number] Odette Levy PA 3 [facility], [address] [place] [address] upcoming appt May -- current observation Social History Tobacco Use Types Packs/Day Years Used Date Smoking Tobacco: Never Smokeless Tobacco: Never Comments:NA Alcohol Use Standard Drinks/Week Comments Yes 0 (1 standard drink = 0.6 oz pur e alcohol) Rarely PHQ-2 Answer Date Recorded Patient Health Questionnaire-2 Score 0 11/06/2023 Sex and Gender Information Value Date Recorded Sex Assigned at Male 08/20/2024 8:23 AM APPLICATION SECURITY DEVELOPER Legal Sex Male 7:54 PM CDT Gender Identity Male 09/05/2021 5:16 PM APPLICATION SECURITY DEVELOPER Sexual Orientation Straight 09/05/2021 5: 16 PM APPLICATION SECURITY DEVELOPER 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 Answer Date of Assessment Author Status No 09/05/2021 5:21 PM APPLICATION SECURITY DEVELOPER Activ e * Do you have serious [...] encounter Progress Notes * TONJA Olivera - 05/20/2024 4:34 PM CST Discussed recommendations in office visit today. ICATION SECURITY DEVELOPER documented in this encounter Plan of Treatment Upcoming Encounters Date Type Department Care Team (Late st Contact Info) Description 01/01/2025 2:00 PM CDT Office Visit [facility] Multispecialty Care - [facility] [address] [facility], [address] [place] [address] Niecy Dillon APRN 3 [facility] [address] [place] [address] 01/27/2025 1:30 PM CDT Office Visit [facility] THREE [facility], [address] [place] [address] Odette Levy PA 3 [facility], [address] [place] [address] 02/17/2025 3:20 PM CDT Office Visit [facility] Multispecialty Care - [facility] [address] [facility], [address] [place] [address] Patricio Johnson MD 3 [facility] [place] [address] documented as of this encounter Goals Goal Patient Goal Type Associated Problems Recent Progress Patient-Stated? Author Patient will return to prior living situation and remain independent in ADLs upon discharge from hospital General No Thelma Lemus, RN documented as of this encounter Visit Diagnoses Not on filedocumented in this encounter Care Teams Almond Grinder Relationship Specialty Start Date End Date Yash Kang MD [address] [facility] 2 [place] [address] PCP - General INTERNAL MEDICINE 12/02/20 Ziyad Harris MD [address] [place] [address] Referring Physician NEPHROLOGY 07/31/23 documented as of this encounter
--- OUTSIDE RECORDS SUMMARY | 2024-11-13 14:50 | XMS_ITS | Encounter Summary ---
Author Organization [facility] Address [address] [place] [address] Care Team Providers Care Adjunct Teacher Name Role Phone Yash Kang MD Primary Care Provider + [phone] Ziyad Harris MD Unavailable [phone] Encounter Details Date Type Department Care Team (Late st Contact Info) Description 01/23/2023 D[employer]le Message Enc [facility] [address] Sanam Vega NP More info and question since am appt visit Social History Tobacco Use Types Packs/Day Years Used Date Smoking Tobacco: Never Smokeless Tobacco: Never Comments:NA Alcohol Use Standard Drinks/Week Comments Yes 0 (1 standard drink = 0.6 oz pur e alcohol) Rarely PHQ-2 Answer Date Recorded Patient Health Questionnaire-2 Score 1 09/16/2022 Sex and Gender Information Value Date Recorded Sex Assigned at Male 08/20/2024 8:23 AM ACCOUNT GENERAL MANAGER Legal Sex Male 7:54 PM CDT Gender Identity Male 09/05/2021 5:16 PM ACCOUNT GENERAL MANAGER Sexual Orientation Straight 09/05/2021 5: 16 PM ACCOUNT GENERAL MANAGER 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 Answer Date of Assessment Author Status No 09/05/2021 5:21 PM ACCOUNT GENERAL MANAGER Activ e * Do you have serious [...] Progress Notes * Elizabeth Guerrero RN - 02/15/2023 8:58 AM CDT Please advise. * TONJA Olivarez - 01/23/2023 4:40 PM CDT With daytime fatigue and sleepiness can offer to order home sleep study to evaluate him for sleep apnea. * TONJA Olivarez - 01/23/2023 4:39 PM CDT With day time fatigue and sleepiness can offer home sleep study to evaluate for sleep apnea. documented in this encounter Plan of Treatment Upcoming Encounters Date Type Department Care Team (Late st Contact Info) Description 01/01/2025 2:00 PM CDT Office Visit [facility] Multispecialty Care [facility] 3 [facility], [address] [place] [address] Niecy Dillon APRN 3 [facility] [address] [place] [address] 01/27/2025 1:30 PM CDT Office Visit [facility] [address] [place] [address] Odette Levy PA 3 [facility], [address] [place] [address] 02/17/2025 3:20 PM CDT Office Visit [facility] Multispecialty Care - [facility] 3 [facility], [address] [place] [address] Patricio Johnson MD 3 [facility] [place] [address] documented as of this encounter Goals Goal Patient Goal Type Associated Problems Recent Progress Patient-Stated? Author Patient will return to prior living situation and remain independent in ADLs upon discharge from hospital General No Thelma Lemus RN documented as of this encounter Visit Diagnoses Not on filedocumented in this encounter Care Teams Adjunct Teacher Relationship Specialty Start Date End Date Yash Kang MD [address] [place] [address] PCP - General INTERNAL MEDICINE 12/02/20 Ziyad Harris MD [address] [place] [address] Referring Physician NEPHROLOGY 07/31/23 documented as of this encounter
--- OUTSIDE RECORDS SUMMARY | 2024-11-13 14:50 | XMS_ITS | Clinical Summary ---
Author Organization [facility] Address [address] [place] [address] Care Team Providers Care Fisheries Inspector Name Role Phone Yash Kang MD Primary Care Provider [phone] Allergies Active Allergy Reactions Criticality Noted Date Comments House Dust Cough Low 12/21/2020 Sniffing, Sneezing, Tearing Metoprolol Other (See Comments) 10/01/2021 Also bradycardia during sleep Mite Extract Cough,Unknown Low 12/21/2020 Sniffing, Sneezing, Tearing Medications ergocalciferol, vitamin D2, (VITAMIN D ORAL) Take 50 mcg by mouth. Active levothyroxine sodium (LEVOTHYROXINE ORAL) Take 100 mcg by mouth. Active hydroCHLOROthia zide 25 mg tablet Take 25 mg by mouth daily. Active losartan (COZAAR) 100 mg tablet Take 100 mg by mouth daily. Active cetirizine (ZyrTEC) 10 mg tablet Take 10 mg by mouth daily. Active Cholecalciferol , Vitamin D3, 50 mcg (2,000 unit) Capsule Take 2,000 Units by mouth. 11/30/2020 Active hydrALAZINE (APRESOLINE) 50 mg tablet 09/03/2021 Active gabapentin (NEURONTIN) 300 mg capsule Take 1 Capsule (300 mg) by mouth 3 times daily. 60 Capsule 1 11/01/2021 Active Active Problems Problem Noted Date Diagnosed Date Cervical spondylosis without myelopathy 03/15/20 21 Acute pain of left shoulder 03/15/2021 Peripheral polyneuropathy 03/15/2021 Postlaminectomy syndrome, lumbar region 03/15/20 21 Lumbar spondylosis 03/15/2021 Family History Medical History Relation Name Comments Other Brother Tobacco Use No Known Problems Father No Known Problems Maternal Grandfather No Known Problems Maternal Grandmother No Known Problems Mother No Known Problems Paternal Grandfather No Known Problems Paternal Grandmother Cancer Sister Heart Disease Sister Relation Name Status Comments Brother Father Maternal Grandfather Maternal Grandmother Mother Paternal Grandfather Paternal Grandmother Sister Social History Tobacco Use Types Packs/Day Years Used Date Smoking Tobacco: Never Alcohol Use Standard Drinks/Week Comments Yes 1 (1 standard drink = 0.6 oz pur e alcohol) Drinks very rarely Sex and Gender Information Value Date Recorded Sex Assigned at Not on file Legal Sex Male 9:43 AM CDT Gender Identity Not on file Sexual Orientation Not on file Last Filed Vital Signs Vital Sign Reading Time Taken Comments Blood Pressure 140/78 11/01/2021 11:03 AM CDT Pulse 59 11/01/2021 11:03 AM CDT Temperature 37.2 C (99 F) 07/19/2021 2:35 PM SEARCH ENGINE OPTIMIZATION CONSULTANT Respiratory Rate - - Oxygen Saturation 98% 11/01/2021 11: 03 AM CDT Inhaled Oxygen Concentration - - Weight 114.9 kg (253 lb 3.2 oz) 022 11:03 AM CDT Height 193 cm (6' 4 ) 07/19/2021 2:35 PM SEARCH ENGINE OPTIMIZATION CONSULTANT Body Mass Index 30.82 07/19/2021 2:35 PM SEARCH ENGINE OPTIMIZATION CONSULTANT Plan of Treatment Health Maintenance Due Date Last Done Comments COLORECTAL SCREENING 2000 Colorectal Cancer Screening 2000 FIT-DNA Q 3 years 2000 FIT/FOBT Q 1 year 2000 Flex Sig/CT Colonography Q 5 years 2000 PNEUMOCOCCAL VACCINE 50+ YEA RS (1 of 1 - PCV) 2005 ZOSTER VACCINE (1 of 2) 2005 INFLUENZA VACCINE (#1) 2024 COVID-19 Vaccine (3 - 2023- season) 03/17/202405/2021, 10/15/2020 RSV VACCINE (60+ or ) (1 - 1-dose 75+ series) 2030 DTAP/TDAP/TD VACCINES (2 - Td or Tdap) 11/09/2030 Insurance [facility] [id number] Care Teams Fisheries Inspector Relationship Specialty Start Date End Date Yash Kang MD [address] [place] [address] PCP - General Internal Medicine 03/15/21
--- OUTSIDE RECORDS SUMMARY | 2024-11-13 14:50 | XMS_ITS | Clinical Summary ---
Author Organization [facility] Address [address] [place] [address] Care Team Providers Care Sales Operations Specialist Name Role Phone Yash Kang MD Primary Care Provider [phone] Source Comments [facility],non-owned Affiliates and Associated Physician Practices is amultiple site organization consisting of ambulatory clinics and hospital sitesin [place], [place], [place] and [place]. This disclosure is being madepursuant to the Care Everywhere program and may not contain all information available regarding this patient. Last updated 18.[facility] Allergies Active Allergy Reactions Criticality Noted Date Comments Clonidine Dizziness,Unknown Low 11/10/2021 Dust Mite Extract Itching,Eye Itching Metoprolol Other 09/14/2023 Low heart rate in the 40's Medications * Be aware that medications may not be up to date on this document. Alwaysverify current medications with the patient. Ergocalciferol (VITAMIN D2 PO) Take 50 mcg by mouth 2 times daily Active levothyroxine (Synthroid) 100 MCG tablet Take 1 (one) tablet by mouth once daily Active atorvastatin (Lipitor) 40 MG tablet Take 1 (one) tablet by mouth once daily 06/09/2023 Active cetirizine (ZyrTEC) 10 MG tablet Take 1 (one) tablet by mouth once daily 09/03/2023 Active chlorthalidone (Hygroton) 25 MG tablet Take 1 (one) tablet by mouth once daily 07/26/2023 Active fluticasone propionate (Flonase) 50 MCG/ACT nasal spray once daily 05/07/2023 Active telmisartan (Micardis) 40 MG tablet Take 1 (one) tablet by mouth once daily 09/08/2022 Active aspirin EC (Ecotrin) 81 MG tablet Take 1 (one) tablet by mouth once daily Active Active Problems Problem Noted Date Diagnosed Date Cerebrovascular accident (CVA) 09/14/2023 Social History Tobacco Use Types Packs/Day Years Used Date Smoking Tobacco: Never Smokeless Tobacco: Never Sex and Gender Information Value Date Recorded Sex Assigned at Not on file Legal Sex Male 4:05 AM CDT Gender Identity Not on file Sexual Orientation Not on file Last Filed Vital Signs Vital Sign Reading Time Taken Comments Blood Pressure 148/79 09/14/2023 8:55 AM HEBREW CANTOR Pulse 50 09/14/2023 8:55 AM HEBREW CANTOR Temperature - - Respiratory Rate 12 09/14/2023 8:55 AM HEBREW CANTOR Oxygen Saturation - - Inhaled Oxygen Concentration - - Weight 112 kg (247 lb) 09/14/2023 8:55 AM HEBREW CANTOR Height 193 cm (6' 4 ) 09/14/2023 8:55 AM HEBREW CANTOR Body Mass Index 30.07 09/14/2023 8:55 AM HEBREW CANTOR Plan of Treatment Health Maintenance Due Date Last Done Comments COLOGUARD (AGES 45-75) - COL ON CA SCREENING 1955 COLON MONITORING 1955 COLONOSCOPY - COLON CA SCREENING 1955 CT COLONOGRAPHY - COLON CA SCREENING 1955 Colorectal Cancer Screening 1955 FIT - COLON CA SCREENING 1955 FLEX SIG - COLON CA SCREENING 1955 HEPATITIS C SCREENING 08/30/1973 DTAP/TDAP/TD VACCINES (1 - Tdap) 1974 PNEUMOCOCCAL VACCINE 50+ (1 of 1 - PCV) 2005 ZOSTER VACCINE (1 of 2) 2005 SCREENING FOR DIABETES 09/14/2023 COVID-19 VACCINE (3 - 2023-2 5 season) 2024 11/24/2020, 10/15/2020 DEPRESSION SCREENING 07/17/2024 INFLUENZA VACCINE (Season Ended) 2025 Respiratory Syncytial Virus (RSV) Vaccine Pt: or over 60 yrs (1 - 1-dose 75+ series) 2030 HEPATITIS B VACCINE Aged Out No longe r eligible based on patient's age to complete this topic HIB VACCINE Aged Out No longer eligi ble based on patient's age to complete this topic HPV VACCINE Aged Out No longer eligi ble based on patient's age to complete this topic MENINGOCOCCAL (Group B) VACCINE SHARED DECISION-MAKING Aged Out No longer eligible based on patient's age to complete this topic MENINGOCOCCAL GROUPS A/C/Y/W VACCINE Aged Out No longer eligible b ased on patient's age to complete this topic Insurance ANTHEM Care Teams Sales Operations Specialist Relationship Specialty Start Date End Date Yash Kang MD [address] [place] [id number] PCP - General 05/07/19
--- OUTSIDE RECORDS SUMMARY | 2024-11-13 14:50 | XMS_ITS | Encounter Summary ---
Author Organization [facility] Address [address] [place] [address] Care Team Providers Care Supervisor Cemetery Workers Name Role Phone Yash Kang MD Primary Care Provider [phone] Ziyad Harris MD Unavailable [phone] Encounter Details Date Type Department Care Team (Late st Contact Info) Description 01/23/2023 SeroMatch Message Enc [place] [facility], [facility] [address] [place], [place] [id number] Jorge Carrion MD [facility]. [facility] [address] [place], [place] [id number] Blood test results november 2022 Social History Tobacco Use Types Packs/Day Years Used Date Smoking Tobacco: Never Smokeless Tobacco: Never Comments:NA Alcohol Use Standard Drinks/Week Comments Yes 0 (1 standard drink = 0.6 oz pur e alcohol) Rarely PHQ-2 Answer Date Recorded Patient Health Questionnaire-2 Score 1 09/16/2022 Sex and Gender Information Value Date Recorded Sex Assigned at Male 08/20/2024 8:23 AM PIN SORTER AND BAGGER Legal Sex Male 7:54 PM CDT Gender Identity Male 09/05/2021 5:16 PM [employer]TER [employer] BAGGER Sexual Orientation Straight 09/05/2021 5: 16 PM [employer]TER [employer]AGGER 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 Answer Date of Assessment Author Status No 09/05/2021 5:21 PM PIN SORTER [employer] BAGGER Activ e * Do you have serious [...] in this encounter Progress Notes * TONJA Olivarez - 01/23/2023 3:41 PM CDT Both your LDL (100 down to 70 which is the goal) and HbA1C(is down to 5.9) have improved since August! Great job! Continue same medications and heart healthy diet. * Elizabeth Guerrero RN - 01/23/2023 9:18 AM CDT Please review and advise. documented in this encounter Plan of Treatment Upcoming Encounters Date Type Department Care Team (Late st Contact Info) Description 01/01/2025 2:00 PM CDT Office Visit [facility] [address] [facility], [address] [place] [address] Niecy Dillon APRN [address] [facility] [address] [place] [address] 01/27/2025 1:30 PM CDT Office Visit [facility] [facility], [address] [place] [address] Odette Levy PA [address] [facility], [address] [place] [address] 02/17/2025 3:20 PM CDT Office Visit [facility] - [facility] [address] [facility], [address] [place] [id number] Patricio Johnson MD [address] [facility] [place] [address] documented as of this encounter Goals Goal Patient Goal Type Associated Problems Recent Progress Patient-Stated? Author Patient will return to prior living situation and remain independent in ADLs upon discharge from hospital General No Thelma Lemus, JOSÉ documented as of this encounter Visit Diagnoses Not on filedocumented in this encounter Care Teams Supervisor Cemetery Workers Relationship Specialty Start Date End Date Yash Kang MD [address] [place] [address] PCP - General INTERNAL MEDICINE 12/02/20 Ziyad Harris MD [address] [place] [address] Referring Physician NEPHROLOGY 07/31/23 documented as of this encounter
--- OUTSIDE RECORDS SUMMARY | 2024-11-13 14:50 | XMS_ITS | Encounter Summary ---
Author Organization [facility] Address [address] [place] [address] Care Team Providers Care Utility System Operator Name Role Phone Yash Kang MD Primary Care Provide r Patricio Johnson MD Unavailable [phone] Reason for Visit * MRI/CAT/PET Scan (Routine) - Closed Specialty Diagnoses / Procedures Referred By Contac t Referred To Contact Procedures Neuro MR Outside Reference Robbie Walker MD [address] [place] [address] Phone: tel: fax: Referral ID Status Reason Start Date Expiration Date Visits Re quested Visits Authorized [id number] Closed 11/11/2024 12/11/2025 1 1 Encounter Details Date Type Department Care Team (Latest Contact Info) Description 11/11/2024 5:22 PM CDT - 11/11/2024 11:59 PM CDT Hospital Encounter [facility] [address] [place] [id number] Arrived Discharge Disposition: Discharge to home or self care Social History Tobacco Use Types Packs/Day Years Used Date Smoking Tobacco: Never Smokeless Tobacco: Never AUDIT-C Answer Date Recorded Q1: How often [...] on file Legal Sex Male 1:28 AM PRESTO LOG OPERATOR Gender Identity Not on file Sexual Orientation Not on file 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 Not on file Not on file documented as of this encounter Medications at Time of Discharge amLODIPine (NORVASC) 2.5 mg tablet Take 1 tablet (2.5 mg total) by mouth daily 08/26/2024 armodafiniL (NUVIGIL) 150 mg tabletIndication s:Hypersomnia Take 1 tablet (150 mg total) by mouth daily 30 tablet 3 06/12/2024 atorvastatin (LIPITOR) 40 mg tablet 06/09/2023 cetirizine (ZyrTEC) 10 mg tablet Take 1 tablet (10 mg total) by mouth daily 11/30/2020 chlorthalidone (HYGROTON) 25 mg tablet Take 1 tablet (25 mg total) by mouth daily 07/26/2023 fluticasone propionate (FLONASE) 50 mcg/actuation nasal spray Administer 1 spray into each nostril daily gabapentin (NEURONTIN) 300 mg capsuleIndicatio ns:Neuropathic Pain,Restless Legs Syndrome Take 1 capsule (300 mg total) by mouth nightly 30 capsule 11 02/28/2022 levothyroxine (SYNTHROID) 100 mcg tablet Take 1 tablet (100 mcg total) by mouth daily 01/19/2021 polyethylene glycol (MIRALAX) 17 gram packet Take 1 packet (17 g total) by mouth daily as needed 07/05/2024 telmisartan (MICARDIS) 40 mg tablet 02/17/2022 valsartan (DIOVAN) 80 mg tablet Take 1 tablet (80 mg total) by mouth 2 (two) times a day 05/29/2024 Vitamin D3 50 mcg (2,000 unit) tablet TAKE 1 TABLET BY MOUTH EVERY MORNING AND TAKE 1 TABLET BY MOUTH EVERY EVENING 04/21/2023 documented as of this encounter Discharge Disposition Disposition Code Departure Means Destination Discharge to home or self care documented in this encounter Plan of Treatment Not on file documented as of this encounter Procedures Procedure Name Priority Date/Time Associated Diagnosis Comments NEURO MR OUTSIDE REFERENCE Routine 11/11/2024 5:22 PM CDT documented in this encounter Results * Neuro MR Outside Reference (11/11/2024 5:22 PM CDT) Impressions [facility] - 11/11/2024 5:22 PM CDT These images are for Reference purposes only and have not been reviewed by [facility]. There will be no report generated by a [facility] Radiologist. Narrative [facility] - 11/11/2024 5:22 PM CDT EXAMINATION: Images For Reference Purposes Only us Robbie Walker MD IMG MRI PROCEDURES Final R esult [facility] documented in this encounter Visit Diagnoses Not on filedocumented in this encounter Care Teams Utility System Operator Relationship Specialty Start Date End Date Yash Kang MD [address] [facility] [place] [address] PCP - General Emergency Medicine 11/22/19 Patricio Johnson MD [address] [address] Referring Physician Neurology 08/21/24 documented as of this encounter
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
--- OUTSIDE RECORDS SUMMARY | 2024-11-13 14:50 | XMS_ITS | Encounter Summary ---
Author Organization [facility] Address [address] [place] [address] Care Team Providers Care Auditing Control Clerk Name Role Phone Yash Kang MD Primary Care Provider [phone] Ziyad Harris MD Unavailable [phone] Encounter Details Date Type Department Care Team (Late st Contact Info) Description 09/10/2021 [employer] Message Enc [facility], [facility] [address] [place], [place] [id number] Jorge Carrion MD [facility]. [facility] [address] [place], [place] [id number] Juan Bloom - ER identification of a Murmur Social History Tobacco Use Types Packs/Day Years Used Date Smoking Tobacco: Never Smokeless Tobacco: Never Alcohol Use Standard Drinks/Week Comments Yes 0 (1 standard drink = 0.6 oz pur e alcohol) 1 per month Sex and Gender Information Value Date Recorded Sex Assigned at Male 08/20/2024 8:23 AM DELTA SYSTEM [employer]ER Legal Sex Male 7:54 PM CDT Gender Identity Male 09/05/2021 5:16 PM DELTA [employer] Sexual Orientation Straight 09/05/2021 5: 16 PM DELTA SYSTEM [employer] CLE[employer]ER 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 No / Unsure 09/09/2021 9:32 AM DELTA SYSTEM [employer] CLE[employer]ER documented as of this encounter Functional Status * RETIRED Are you deaf or do you have serious difficulty hearing Answer Date of Assessment Author Status No 09/05/2021 5:21 PM DELTA SYSTEM [employer] CAR CLE[employer]ER Activ e * RETIRED Are you blind or do you have serious difficulty seeing, even when wearing glasses? Answer Date of Assessment Author Status No 09/05/2021 5:21 PM DELTA SYSTEM FRE[employer] CAR CLE[employer]ER Activ e * Do you have serious difficulty walking or climbing stairs? 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 A SYSTEM [employer] CLE[employer]ER documented in this encounter Plan of Treatment Upcoming Encounters Date Type Department Care Team (Late st Contact Info) Description 01/01/2025 2:00 PM CDT Office Visit [facility] Multispecialty Care - [facility] [address] [facility], [address] [place] [id number] Niecy Dillon APRN [address] [facility] [address] [place] [address] 01/27/2025 1:30 PM CDT Office Visit [facility], [address] [place] [address] Odette Levy PA [address] [facility], [address] [place] [address] 02/17/2025 3:20 PM CDT Office Visit [facility] Multispecialty Care - [facility] [address] [facility], [address] [place] [phone] Patricio Johnson MD [address] [place] [address] documented as of this encounter Goals Goal Patient Goal Type Associated Problems Recent Progress Patient-Stated? Author Patient will return to prior living situation and remain independent in ADLs upon discharge from hospital General No Thelma Lemus RN documented as of this encounter Visit Diagnoses Not on filedocumented in this encounter Care Teams Auditing Control Clerk Relationship Specialty Start Date End Date Yash Kang MD [address] [facility] [address] [place] [address] PCP - General INTERNAL MEDICINE 12/02/20 Ziyad Harris MD [address] [place] [address] Referring Physician NEPHROLOGY 07/31/23 documented as of this encounter
--- OUTSIDE RECORDS SUMMARY | 2024-11-13 14:50 | XMS_ITS | Encounter Summary ---
Author Organization [facility] Address [address] [place] [id number] Care Team Providers Care Tobacco Wetter Name Role Phone Yash Kang MD Primary Care Provider [phone] Ziyad Harris MD Unavailable [phone] Encounter Details Date Type Department Care Team (Late st Contact Info) Description 09/03/2021 [employer] 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 No / Unsure 09/05/2021 11:19 AM EDGER SAW OPERATOR documented as of this encounter Functional Status * Calculated C-SSRS Risk Score (Lifetime/Recent) Answer Date of Assessment Author Status No Risk Indicated 09/05/2021 10:56 AM EDGER SAW OPERATOR Sondra Joe RN Active * [place] Suicide Severity Rating Scale (Screener/Recent Self-Report) Question Answer Date of Assessment Author Status 1. Wish to be (Past 1 Month) No 09/05/2021 10:56 AM Trupti Rodriguez, RN Ac tive 2. Non-Specific Active Suicidal Thoughts (Past 1 Month) No 09/05/2021 10:56 AM Trupti Rodriguez, RN Ac tive 6. Suicidal Behavior (Lifetime) No 09/05/2021 10:56 AM Trupti Rodriguez RN Rashaun tive documented as of this encounter Mental Status * Question Answer Entry Date Author Status Because of a physical, mental, or emotional condition, do you have serious difficulty concentrating, remembering, or making decisions? No 09/05/2021 5:21 PM Rachele Silva RN Active documented in this encounter Progress Notes * Elizabeth Guerrero RN - 09/08/2021 2:08 PM CST FYI R SAW OPERATOR * Sanam Vega NP - 09/08/2021 1:07 PM CST If you are looking for a neurologist to review your previous symptoms and perform evaluation/ workup to ensure no neurological etiology for the above (including TIA), then this is an option. R SAW OPERATOR * Elizabeth Guerrero RN - 09/08/2021 1:05 PM CST . R SAW OPERATOR * Sanam Vega NP - 09/08/2021 12:47 PM CST The neurologist group here at [facility] Patricio Johnson MD R SAW OPERATOR * Elizabeth Guerrero RN - 09/07/2021 11:00 AM CST Please make appt thanks! R SAW OPERATOR * Sanam Vega NP - 09/07/2021 10:54 AM CST Appt scheduled with angela following recent admission for this week R SAW OPERATOR * Elizabeth Guerrero RN - 09/06/2021 8:32 AM CST Advise ER for workup? R SAW OPERATOR * Taylor Philip - 09/03/2021 5:01 PM CST R SAW OPERATOR * Elizabeth Guerrero RN - 09/03/2021 3:02 PM CST And 24 hour hm R SAW OPERATOR * Sanam Vega NP - 09/03/2021 2:58 PM CST Resting echo and 24 hour HM R SAW OPERATOR * Elizabeth Guerrero RN - 09/03/2021 2:43 PM CST Message to audio visual secretary to schedule echo. Message to Sanam WATTS R SAW OPERATOR * Sanam Vega NP - 09/03/2021 2:02 PM CST No heart palpitations, chest pain, sob.... there are so many other etiologies than cardiac for these symptoms. If he wants we can obtain an echo R SAW OPERATOR documented in this encounter Plan of Treatment Upcoming Encounters Date Type Department Care Team (Late st Contact Info) Description 01/01/2025 2:00 PM CDT Office Visit [facility] [address] [facility], [address] [place] [address] Niecy Dillon APRN [address] [facility] [place] [address] 01/27/2025 1:30 PM CDT Office Visit [facility] [address] [facility] [place] [address] Odette Levy PA [address] [facility], [address] [place] [address] 02/17/2025 3:20 PM CDT Office Visit [facility] [address] [facility], [address] [place] [id number] Patricio Johnson MD [address] [facility] [address] documented as of this encounter Goals Goal Patient Goal Type Associated Problems Recent Progress Patient-Stated? Author Patient will return to prior living situation and remain independent in ADLs upon discharge from hospital General No Thelma Lemus, JOSÉ documented as of this encounter Visit Diagnoses Not on filedocumented in this encounter Care Teams Tobacco Wetter Relationship Specialty Start Date End Date Yash Kang MD [address] [place], [place] [id number] PCP - General INTERNAL MEDICINE 12/02/20 Ziyad Harris MD [address] [place] [address] Referring Physician NEPHROLOGY 07/31/23 documented as of this encounter
--- OUTSIDE RECORDS SUMMARY | 2024-11-13 14:50 | XMS_ITS | Clinical Summary ---
Author Organization [facility] Address [address] [place] [address] Care Team Providers Care Family Service Assistant Name Role Phone Yash Kang MD Primary Care Provider [phone] [place] guzman MD Unavailable [phone] Allergies Active Allergy Reactions Criticality Noted Date Comments Clonidine Dizziness,Unknown 11/10/2021 Dust Mite Extract Cough,Unknown,Eyes Water & Itch,Itching Low 12/21/2020 Sniffing, Sneezing, Tearing Metoprolol Fatigue 10/01/2021 Also bradycardia during sleep Medications cetirizine 10 MG tablet Take 1 tablet (10 mg total) by mouth nightly at bedtime. 1 Active levothyroxine 100 MCG tablet Take 1 tablet (100 mcg total) by mouth daily. 1 Active fluticasone propionate 50 MCG/ACT nasal spray 1 spray by Each Nostril route 2 (two) times daily. 2 Active Cholecalciferol (VITAMIN D3) 50 MCG (1999 UT) Cap Take 2,000 Units by mouth every morning. Takes 2,000 units in the morning and 1,000 units in the evening 90 capsule 1 3 Active aspirin EC (ECOTRIN) 81 MG tablet Take 1 tablet (81 mg total) by mouth daily. Active Armodafinil 150 MG Tab Take 150 mg by mouth daily as needed. 4 Active amLODIPine (NORVASC) 2.5 MG tablet Take 1 tablet (2.5 mg total) by mouth daily. 30 tablet 5 5 Active chlorthalidone (HYGROTEN) 25 MG tablet Take 1 tablet (25 mg total) by mouth nightly at bedtime. 90 tablet 2 5 Active gabapentin (NEURONTIN) 100 MG capsuleIndicati ons:Radiculopat hy, cervical region Take 1 capsule (100 mg total) by mouth daily. 30 capsule 11 5 Active albuterol sulfate HFA 108 (90 Base) MCG/ACT inhaler INHALE 2 PUFFS BY MOUTH EVERY 4 TO 6 HOURS NEEDED FOR SHORTNESS OF BREATH OR WHEEZING 5 Active atorvastatin (LIPITOR) 40 MG tablet TAKE 1 TABLET(40 MG) BY MOUTH EVERY NIGHT AT BEDTIME 90 tablet 1 5 Active valsartan (DIOVAN) 80 MG tablet Take 1 tablet (80 mg total) by mouth 2 (two) times a day. 180 tablet 1 5 Active valsartan (DIOVAN) 80 MG tablet Take 1 tablet (80 mg total) by mouth 2 (two) times a day. 180 tablet 5 10/16/19 25 Discontinu ed(Reorder ) Active Problems Problem Noted Date Diagnosed Date Radiculopathy 07/03/2024 Dizziness 07/03/2024 Palpitations 05/20/2024 Assessment & Plan (05/20/2024 2:31 PM SUPERANNUATION CLERK): Patient reports 1 episode of pulsating chest discomfort that had no other associated symptoms. Reports his heart rate increased from 150 to 165 for 2 minutes while riding his bike. Will obtain 7 day MCOT to assess possible arrhythmias. EKG in office today showing normal sinus rhythm HR 68 with a right bundle branch block. Cubital tunnel syndrome on left 03/13/2024 Precordial chest pain 01/15/2024 Assessment & Plan (01/15/2024 11:35 AM CDT): He had a nuclear stress test earlier in the year that was within normal limits. Given that he's only had remote episodes of chest discomfort, I do not think that it is worth pursuing cardiac catherization. Cerebrovascular accident (CVA) ([facility]) 09/14/2023 Chest pain 07/31/2023 Cervical radiculopathy 05/18/2022 Overview (05/18/2022): Added automatically from request for surgery [id number] Restless leg syndrome 02/28/2022 Overview (07/20/2022): Last Assessment & Plan: Patient will continue with gabapentin 300 mg nightly Hypothyroidism 02/11/2022 Overview (07/20/2022): Last Assessment & Plan: Continue levothyroxine 100 mcg daily Obstructive sleep apnea syndrome 11/10/2021 Overview (07/20/2022): Last Assessment & Plan: Patient will continue with CPAP therapy at 9 cm water pressure. Denied need for supplies. D[facility] [employer] Cardiac enzymes elevated 10/28/2021 Assessment & Plan (08/05/2024 12:24 PM SUPERANNUATION CLERK): His cardiac enzymes were elevated on his recent admission. However, they state relatively flat and he had an ischemic evaluation earlier in the year. Can continue to monitor. Assessment & Plan (10/28/2021 4:35 PM CDT): Given that his cardiac enzymes were elevated on this recent admission, I recommended that he undergo exercise nuclear stress testing. Facial pain 09/05/2021 Coronary artery calcification 08/21/2021 Assessment & Plan (08/05/2024 12:24 PM SUPERANNUATION CLERK): He was noticed to have some mild coronary artery calcification on his CTA chest. Continue statin therapy Assessment & Plan (01/15/2024 11:34 AM CDT): As mentioned above, I do not think that his chest discomfort represents angina at this time. He had a normal stress test earlier in the year. Continue Statin therapy. We will need to obtain his most recent lipid panel. Assessment & Plan (07/31/2023 5:11 PM SUPERANNUATION CLERK): He was noticed to have some mild coronary artery calcification on his CTA chest. He recently had an episode of palpitations/back pain after strenuous work out. Would recommend exercise treadmill for further evaluation. This can also assess for exercise induced arrhythmias. Continue atorvastatin. May benefit from low dose asa. Assessment & Plan (01/23/2023 9:22 AM CDT): He was noticed to have some mild coronary artery calcification on his CTA chest. Continue statin therapy Assessment & Plan (01/26/2022 9:12 AM CDT): continue with atorva and asa Recent stress imaging neg for ischemia Assessment & Plan (10/28/2021 4:35 PM CDT): He has a history of coronary artery calcification on CT scan. Given that he had recent elevated cardiac enzymes, I recommend nuclear stress testing. Assessment & Plan (08/21/2021 9:22 PM SUPERANNUATION CLERK): Assessment: He has coronary artery calcification on a CT scan. Plan: : Diagnostic Testing: none Antiplatelet therapy: start Aspirin Dose: 81mg (patient would like to think about it) Lipid lowering medications: continue atorvastatin, recommended increasing dose to 40 mg, but patient would prefer lifestyle modifications first Lifestyle modifications: continue progressive daily aerobic exercise program, follow a low fat, low cholesterol diet and attempt to lose weight Hyperlipidemia, mixed 08/21/2021 Assessment & Plan (08/05/2024 12:26 PM SUPERANNUATION CLERK): His LDL is at goal per his most recent lipid panel. His triglycerides are mildly elevated. Continue lifestyle modifications, I do not think that triglyceride intervention is needed at this time. Continue atorvastatin Assessment & Plan (05/20/2024 4:55 PM SUPERANNUATION CLERK): Recent lipid panel with LDL of 123. Patient remains very active with biking multiple days a week. Continue atorvastatin 40mg. Assessment & Plan (01/15/2024 11:35 AM CDT): Will attain his most recent lipid panl from primary care physician. Continue Statin therapy. Assessment & Plan (01/23/2023 9:23 AM CDT): His LDL is at goal per his most recent lipid panel. Continue atorvastatin Assessment & Plan (08/21/2021 9:26 PM SUPERANNUATION CLERK): Assessment: Goal LDL < 70 given coronary artery calcificatoin Plan: : Diagnostic Testing: obtain most recent lipid panel Lipid lowering medications: continue atorvastatin, recommended increasing dose to 40 mg, but patient would prefer lifestyle modifications first Lifestyle modifications: diet, regular aerobic exercise and weight loss Vitamin D deficiency 07/20/2021 Overview (07/20/2022): Last Assessment & Plan: Continues with vitamin-D supplementation. Primary insomnia 07/20/2021 Overview (07/20/2022): Last Assessment & Plan: Will continue with cognitive behavior therapy and p.r.n. melatonin. The patient and I also discussed journaling to see if this may help with his bedtime routine. The patient and I discussed sleep restriction. Ascending aortic aneurysm 12/21/2020 Assessment & Plan (08/05/2024 12:27 PM SUPERANNUATION CLERK): The size of his ascending aortic aneurysm is stable. Continue antihypertensive therapy Assessment & Plan (05/20/2024 2:24 PM SUPERANNUATION CLERK): CTA 01/2024 showing ascending aortic aneurysm measuring 4.2 cm. Stable. Blood pressures have been labile recently. He notes significant stress in his life. He checks blood pressure 1-2x every day and notes pressures are 130-150 systolic and 60 diastolic. Recommended checking pressures 2-3x/week and at the same time each time. Continue valsartan for now. May need medication adjustment in the future. Assessment & Plan (01/15/2024 11:34 AM CDT): We will check his CTA chest since he has not had one since 2021. Encouraged home blood pressure control. Assessment & Plan (07/31/2023 5:07 PM SUPERANNUATION CLERK): The size of his a sending aortic aneurysm is stable. Would likely repeat CTA chest in mid 2023. Continue antihypertensive therapy. Would benefit from strict BP control. Assessment & Plan (01/23/2023 9:22 AM CDT): The size of his a sending aortic aneurysm is stable. Would likely repeat CTA chest in mid 2023. Continue antihypertensive therapy Assessment & Plan (07/26/2022 10:46 AM SUPERANNUATION CLERK): Aortic bulb is 4.4 cm on coronal imaging, 4.9 cm on sagittal imaging, and approximately 5 cm on axial imaging. Ascending thoracic aorta is approximately 4.2 x 4 cm and was approximately 4.4 x 4.3 cm on 07/22/2021 exam Repeat CTA in 1 year Blood pressure control Continuing statin therapy Assessment & Plan (01/26/2022 9:11 AM CDT): Maximal diameter of ascending thoracic aorta is 4.4 cm at level of main pulmonary arterial trunk on CT chest 07/2021 Repeat in [place] bp control Statin therapy Asa continued Assessment & Plan (10/28/2021 4:36 PM CDT): His most recent CT was in July. We can repeat his CT next year. Assessment & Plan (08/21/2021 9:15 PM SUPERANNUATION CLERK): Assessment: I have reviewed the most recent CT And it shows an aortic aneurysm of 4.4 cm. There is minimal change compared to the most recent CT. Plan: Repeat CT chest in a year Continue blood pressure monitoring and antihypertensive therapy Counseled patient on dangers of aneurysms when they reach the size including aortic dissection or aortic root rupture. I explained that the treatment would be potential open heart surgery if necessary. Assessment & Plan (12/21/2020 10:05 AM CDT): I have personally reviewed the imaging of [...] his current regimen including losartan and hydrochlorothiazide. Essential (primary) hypertension 12/21/2020 Assessment & Plan (08/05/2024 12:24 PM SUPERANNUATION CLERK): His blood pressure is elevated, but overall his readings seem to be improved with his sleep intervention. Continue amlodipine, chlorthalidone and valsartan. Assessment & Plan (05/20/2024 2:36 PM SUPERANNUATION CLERK): Blood pressure elevated in office today at 162/94mmHg. Patient checks blood pressure consistently at home and notes pressures between 130-150/60s mmHg. Encouraged patient to check blood pressure 1-2 hours after taking blood pressure medications to evaluate if adjustments need to be made. Continue valsartan Assessment & Plan (01/15/2024 11:34 AM CDT): It sounds like his blood pressure has been closer to 140 and its 140/70 in the office. I recommend increasing Telmisartan from 40 to 60 mg daily. Continue his other antihypertensive medications. He cannot tolerate beta-jsoef therapy because of fatigue. Assessment & Plan (07/31/2023 5:09 PM SUPERANNUATION CLERK): His blood pressure is well controlled in the office today. Home readings are mildly elevated. 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 Continue home BP monitoring. If SBP > 130 persistently, recommended he increase ARB. Advised to limit dietary salt intake. He does not use NSAIDs. Assessment & Plan (01/23/2023 9:23 AM CDT): Is blood pressure is elevated in the office. I encouraged home monitoring. If blood pressure at home is more often above a systolic blood pressure of 140 mmHg. Would consider increasing ARB. Continue hydrochlorothiazide Assessment & Plan (07/26/2022 10:47 AM SUPERANNUATION CLERK): Mildly elevated today Home monitoring and call with log for further adjustments if needed As of now continue telmisartan 40 mg a day and hydrochlorothiazide 25 mg daily Assessment & Plan (01/26/2022 9:11 AM CDT): With BP management by Dr. Harris Assessment & Plan (08/21/2021 9:21 PM SUPERANNUATION CLERK): Assessment: BP noted to be severely elevated today in office Plan: : Diagnostic Testing: none Antihypertensive medications: continue hydrochlorothiazide and losartan Lifestyle modifications: reviewed diet, exercise and weight control and recommended sodium restriction Encouraged home blood pressure monitoring Assessment & Plan (12/21/2020 10:06 AM CDT): Blood pressure is well controlled today. Continue losartan and hydrochlorothiazide Resolved Problems Problem Noted Date Diagnosed Date Resolved Date Hypersomnia 04/20/2021 07/31/2023 Overview (07/20/2022): Last Assessment & Plan: Patient states his hypersomnia continues to improve with the use of a chinstrap. He is using caffeine and Nuvigil on a p.r.n. basis. Patient continues vitamin-D supplementation Encounters Date Type Department Care Team Description 10/15/2024 Telephone [facility] [place] [facility], [address] [address] Odette Levy PA Refill Request (VALSARTAN) 09/18/2024 Telephone [facility] [place] [address] [id number] Natalee Ho, RN Follow Up 09/18/2024 MyChart Message Enc [facility] [place] [address] [id number] Darrel Pena CNP Follow up from injection Aug 27 08/29/2024 Telephone [facility] [place] [address] [id number] Gay Dykes, RN Follow Up Call 08/28/2024 10:20 AM SUPERANNUATION CLERK - 08/28/2024 10:40 AM SUPERANNUATION CLERK Surgery [facility] [place] [address] [id number] Susana Ta MD INJECTION EPIDURAL STEROID [id number] 08/28/2024 9:26 AM SUPERANNUATION CLERK - 08/28/2024 10:29 AM SUPERANNUATION CLERK Hospital Encounter [facility] [place] [address] [id number] Susana Ta MD Discharge Disposition: Home or Self Care (Routine Discharge) 08/28/2024 Travel 08/27/2024 7:38 AM SUPERANNUATION CLERK - 08/27/2024 11:59 PM SUPERANNUATION CLERK Hospital Encounter [facility] [place] [address] [id number] Darrel Pena, [employer] POL[employer]ER Discharge Disposition: Home or Self Care (Routine Discharge) 08/27/2024 Travel 08/20/2024 8:40 AM SUPERANNUATION CLERK Office Visit [facility] Mult[facility]pec[facility] - [facility] [address] [facility], [address] [place] [address] Patricio Johnson MD Follow Up 08/20/2024 Travel 08/19/2024 MyChart Message Enc [facility] Call Center [address] [place] [address] Mariel, [facility] Provider gabapentin (NEURONTIN) 100 MG capsule from Last 3 Months Immunizations Immunization Administration Dates Next Due MODERNA COVID-19 (12+) MRNA, LNP-S, PF, 100 MCG/ 0.5 ML DOSE 11/24/2020,10/15/2020 Tdap (Generic) 11/09/2020 Family History Medical History Relation Comments Cancer Father at age of 9 1, aug 25 2022 Kidney Disease Father Right kidney rem los Heart Attack Maternal Grandmother Relation Status Comments Brother Alive Father Alive Maternal Grandmother Mother (Age 70) Sister 1 Alive Sister 2 Alive Social History Tobacco Use Types Packs/Day Years Used Date Smoking Tobacco: Never Smokeless Tobacco: Never Tobacco Cessation:Counseling Given: No Comments:NA Alcohol Use Standard Drinks/Week Comments Yes 0 (1 standard drink = 0.6 oz pur e alcohol) Rarely B1300 Health Literacy Answer Date Recor ded How often do you need to hav e someone help you when you read instructions, pamphlets, or other written material from your doctor or pharmacy? Never 07/03/2024 [facility] Utilities Answer Date Recorded In the past 12 months has [facility] [employer], gas, oil, or water [employer] threatened to shut off services in your [...] How often do you attend chur or uatsdin services? More than 4 times per year 07/03/2024 Do you belong to any clubs o r organizations such as sikh groups, unions, fraternal or athletic groups, or [...] Recorded Patient Health Questionnaire-2 Score 0 08/20/2024 [facility] - Occupational [...] any time in the past 12 m [facility], were you homeless or living in a fci (including now)? 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 Not on file Not on file Not on file Last Filed Vital Signs Vital Sign Reading Time Taken Comments Blood Pressure 134/76 08/28/2024 10:21 AM SUPERANNUATION CLERK Pulse 56 08/28/2024 10:21 AM SUPERANNUATION CLERK Temperature 36.4 C (97.5 F) 08/28/2024 9:37 AM SUPERANNUATION CLERK Respiratory Rate 18 08/28/2024 10:21 AM SUPERANNUATION CLERK Oxygen Saturation 96% 08/28/2024 10:21 AM SUPERANNUATION CLERK Inhaled Oxygen Concentration - - Weight 117.9 kg (260 lb) 08/28/2024 9:37 AM SUPERANNUATION CLERK Height 193 cm (6' 4 ) 08/28/2024 9:37 AM SUPERANNUATION CLERK Body Mass Index 31.65 08/28/2024 9:37 AM SUPERANNUATION CLERK Plan of Treatment Upcoming Encounters Date Type Department Care Team (Late st Contact Info) Description 01/01/2025 2:00 PM CDT Office Visit [facility] Multispecialty Care - [address], [address] [place] [id number] Niecy Dillon, OPAL [address] [facility] [address] [place] [address] 01/27/2025 1:30 PM CDT Office Visit [facility], [address] [place] [address] Odette Levy PA [address] [address] [facility], [address] [place] [address] 02/17/2025 3:20 PM CDT Office Visit [facility] - [facility] [address] [facility], [address] [place] [address] Patricio Johnson MD [address] [place] [address] Health Maintenance Due Date Last Done Comments Colorectal Cancer Screening Colonoscopy (10 Years) 1955 Hepatitis C 1973 Pneumococcal Vaccine: 50+ Years (1 of 2 - PCV) 1974 Zoster Vaccines (1 of 2) 2005 RSV Immunization or 60+ Years (1 - Risk 60-74 years 1-dose series) 2015 COVID-19 Vaccine (3 - 2023-2 5 season) 2024 11/24/2020, 10/15/2020 DTaP, Tdap and Td Vaccines ( 2 - Td or Tdap) 11/09/2030 11/09/2020 PHQ-2 (Physician [place]) Completed 08/20/2024 Meningococcal B Vaccine Aged Out No l onger eligible based on patient's age to complete this topic Meningococcal Vaccine Aged Out No dioni jade eligible based on patient's age to complete this topic RSV Immunizations Under 20 Months Aged Out No longer eligible b ased on patient's age to complete this topic Goals Goal Patient Goal Type Associated Problems Recent Progress Patient-Stated? Author Patient will return to prior living situation and remain independent in ADLs upon discharge from hospital General Thelma Landaverde RN Safety - demonstrates understanding of home safety measures Lifestyle No Meagan Burnette RN Safety Patient/family will have appropriate support at home upon discharge Lifestyle No Meagan Burnette RN Procedures Procedure Name Priority Date/Time Associated Diagnosis Comments NJX INTERLAMINAR CRV/THRC 08/28/2024 10:14 AM SUPERANNUATION CLERK Cervical radiculopathy XR [facility] Today 08/28/2024 9:49 AM SUPERANNUATION CLERK from Last 3 Months Results * XR PAIN [facility]INIC C-ARM (08/28/2024 9:49 AM SUPERANNUATION CLERK) Narrative Radiology, Technologist - 08/28/2024 9:49 AM SUPERANNUATION CLERK This report does not contain a radiologist's interpretation. Please review associated procedure and/or operative report. Susana Ta MD GENERAL IMAGING Final Result from Last 3 Months Insurance MEDICARE PART A [facility] Advance Directives * Full Code (Latest Code Status on File) Date Activated Date Inactivated Comments 07/03/2024 9:42 PM 07/05/2024 2:55 PM * Full Code Date Activated Date Inactivated Comments 09/05/2021 4:02 PM 09/06/2021 7:01 PM Care Teams Family Service Assistant Relationship Specialty Start Date End Date Yash Kang MD [address] [facility] [address] [place] [address] PCP - General INTERNAL MEDICINE 12/02/20 Ziyad Harris MD [address] [place] [address] Referring Physician NEPHROLOGY 07/31/23
== END 2024-11-13 13:52 | disposition home or self-care (01) ==
LOC: ANHIMG 13:53
PROVIDERS: PCP Emergency Medicine; Visit Provider Internal Medicine
DX: E03.9 Hypothyroidism, unspecified (principal); E78.2 Mixed hyperlipidemia; E04.9 Nontoxic goiter, unspecified; I10 Essential (primary) hypertension; M81.0 Age-related osteoporosis without current pathological fracture; R73.9 Hyperglycemia, unspecified
CPT/HCPCS: 77080

== ENCOUNTER 2024-11-19 13:52 | Outpatient (CLI) | payer BC, MEDICARE, SELFPAY ==
--- NOTE | ~2024-11-19 | US_ITS ---
Thyroid ultrasound. Clinical History: Hypothyroidism Findings: Real-time sonography of the thyroid gland was performed. The right lobe measures 3.8 x 2.3 x 1.4 cm. The left lobe measures 4.2 x 1.6 x 1.1 cm. The isthmus is 3 mm in AP diameter. There is a 1.4 x 0.9 x 0.9 cm isoechoic to hyperechoic solid nodule at the left lower pole. Impression: 1.4 cm TR-3 nodule in the left thyroid lobe, as above.. Consider one-year follow-up exam. Reviewed, dictated and finalized at location . Impression: 1.4 cm TR-3 nodule in the left thyroid lobe, as above.. Consider one-year follo w-up exam.
== END 2024-11-19 13:53 | disposition home or self-care (01) ==
LOC: MICIMG 13:57
PROVIDERS: PCP Emergency Medicine; Visit Provider Internal Medicine
DX: E03.9 Hypothyroidism, unspecified (principal); E78.2 Mixed hyperlipidemia; I10 Essential (primary) hypertension; R73.9 Hyperglycemia, unspecified; E04.1 Nontoxic single thyroid nodule
CPT/HCPCS: 76536

== ENCOUNTER 2025-03-21 13:01 | Emergency (ER) | payer MEDICARE, SELFPAY ==
--- NOTE | ~2025-03-21 | XR_ITS ---
XR finger 3rd LT min 2V 03/21/2025 13:35 Indication: Cut to left third digit Procedure: 3 views left third finger Comparison: No prior studies for comparison. Findings: No fracture, subluxation or dislocation. No foreign bodies. There is anatomic alignment. Impression: 1: No acute fracture. Reviewed, dictated and finalized at location O. Impression: 1: No acute fracture.
[2025-03-21 13:15] VITALS: BP 153/64; PULSE 60; RESP 20; TEMP 36.7; O2SAT 94
--- NOTE | 2025-03-21 13:15 | ED.WOUNDLAC ---
HPI - Wound/Laceration General Chief Complaint: Wound/Laceration Stated Complaint: finger cut Time Seen by Provider: 03/21/25 13:40 Source: patient and RN notes reviewed Mode of arrival: ambulatory Limitations: no limitations History of Present Illness HPI narrative: 69-year-old male presents concern for laceration to the 3rd digit of the left hand. Reports prior to arrival he was clipping brushes and cut the finger on a garden tool. He is up-to-date on his tetanus shot. Related Data Home Medications ?Medication ?Instructions ?Recorded ?Confirmed ?Last Taken ?Type aspirin 81 mg tablet,delayed 81 mg PO DAILY 01/24/23 01/13/25 Unknown History release (Adult Low Dose Aspirin) valsartan 80 mg tablet 80 mg PO BID 07/25/24 01/13/25 Unknown History atorvastatin 40 mg tablet (Lipitor) 40 mg PO DAILY 09/16/24 01/13/25 Unknown History eszopiclone 2 mg tablet 2 mg PO .COMPLEX PRN 01/13/25 01/13/25 Unknown History Allergies Allergy/AdvReac Type Severity Reaction Status Date / Time clonidine Allergy Intermediate low pulse Verified 03/21/25 13:06 house dust mite Allergy Intermediate sinus Verified 03/21/25 13:06 drainage gabapentin AdvReac Intermediate Hyperactive Verified 03/21/25 13:06 metoprolol AdvReac Intermediate Hypotension Verified 03/21/25 13:06 Review of Systems Review of Systems: CONSTITUTIONAL: Denies malaise, chills, sweats, or fever. SKIN: Reports laceration to the tip of the 3rd digit of the left hand MUSCULOSKELETAL: Denies muscle skeletal pain NEUROLOGIC: Denies numbness, weakness All systems reviewed & are unremarkable except as noted in HPI and below PMFSH Past Medical History Medical History Left hamstring muscle strain Left knee DJD HLD (hyperlipidemia) Sprain of right foot Disorder of the skin and subcutaneous tissue, unspecified Peroneal tendinitis of right lower extremity Right foot strain Insomnia Sinus congestion HTN (hypertension) Right flank pain Vitamin D2 deficiency Bilateral carotid bruits Acute midline low back pain without sciatica Acute rhinosinusitis Benign paroxysmal positional vertigo due to bilateral vestibular disorder Body mass index [BMI] 27.0-27.9, adult (10/08/15) Body mass index [BMI] 28.0-28.9, adult (11/23/15) Body mass index [BMI] 29.0-29.9, adult (07/08/16) Body mass index [BMI] 30.0-30.9, adult (03/31/17) Body mass index [BMI] 31.0-31.9, adult (09/07/17) Chronic pain of left knee Chronic pain of right knee Constipation Cough THOMPSON (dyspnea on exertion) Dependence on other enabling machines and devices Essential (primary) hypertension Flank pain Hypothyroidism, unspecified Insomnia, unspecified Mixed hyperlipidemia BRYAN on CPAP Olecranon bursitis, right elbow Osteoarthritis of left knee Other chronic pain Other hyperlipidemia Other tear of lateral meniscus, current injury, right knee, initial encounter Pressure sensation in left ear Primary osteoarthritis of right knee Right forearm pain Right otitis media Right wrist pain Ringing in left ear Sore throat Subconjunctival hemorrhage of left eye Testicular hypofunction Thyroid nodule Vitamin D deficiency Hyperthyroidism Wears glasses Arthritis of shoulder region, left Cervical spondylosis with radiculopathy Shoulder pain Cervical radiculopathy Polyneuropathy Onychomycosis due to dermatophyte Renal cell carcinoma 1.5 cm right kidney mass Abdominal pain High cholesterol Sleep apnea BRYAN (obstructive sleep apnea) Peripheral arterial disease Toe fracture, right Rib pain Hand pain Hand injury Aortic aneurysm Head injury Right kidney mass Skin lesion IT band syndrome Effusion, left knee Degenerative joint disease of knee Bilateral carotid bruits Headaches due to old head injury Chest pain Hypertension Neck pain Thyroid goiter Hypothyroidism (acquired) Screening PSA (prostate specific antigen) HLD (hyperlipidemia) Lateral meniscal tear Surgical History Surgical History History of kidney surgery Cryoablation renal cell carcinoma History of arthroscopy of right knee History of laminectomy Family History Family History Father Kidney malignancy Mother Broken heart syndrome Sibling OD on pain killers from untreated back injury. Sibling No problems noted. Social History Social History Social History: Patient exercises 6-12 hours per week. 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 There is no relevant family history pertinent to the presenting complaint Exam Narrative: GENERAL: Well-appearing, well-nourished, and in no acute distress. HEAD: Normocephalic EYES: PERRLA, conjunctivae clear NECK: Supple. CHEST: Speaks in full sentences. No respiratory distress. HEART: Regular rate and rhythm. Normal and equal peripheral pulses. EXTREMITIES: 3rd digit of the right hand has normal strength and sensation. 5/5 strength with digit flexion, extension. Range of motion normal. No clubbing, cyanosis, or edema noted. Normal digital cascade with flexion of fingers, median, ulnar and radial nerve intact. Normal sensation of each side of finger. Good capillary refill and radial pulse. Distal capillary refill less than 3 seconds. Patient is right/left hand dominant SKIN: Warn, dry, intact, pink. Flap laceration noted to the tip of the 3rd digit of left hand including the finger nail NEURO: Alert and oriented x3. PSYCH: Normal mood and affect Course Course Emergency Course: Patient is aware of diagnosis, understands and agrees to treatment plan. Anticipatory guidance given. Patient agrees to follow-up as directed and is aware of reasons to seek care at the emergency department. Portions of this record may have been created with voice recognition software Level of Care: Express Care Visit Vital Signs Vital signs: Reviewed. Procedures Laceration Laceration 1: Date: 03/21/25 Time: 13:45 Site: upper extremity Side (If applicable): left Size (cm): 2 Description: flap Depth: simple, single layer Amount of anesthesia used (mL): 3 Pre-repair: wound explored and irrigated ====== Skin Level ====== Skin layer closed with: nylon Size (cm): 4-0 Number of sutures: 7 Technique: simple, interrupted ====== Subcutaneous Layer ====== ====== Muscle Layer ====== ====== Tendon Layer ====== MDM - Wound/Laceration MDM Narrative Medical decision making narrative: Wound explored for foreign body and copious irrigation provided with no evidence of FB. Discussed the potential of retained foreign body with the patient and signs/symptoms that should prompt the patient to immediately go to the ED for reevaluation. The wound was explored and no foreign bodies were found. There was no evidence of tendon or nerve lacerations. A sterile dressing was then applied and anticipatory guidance was provided. Tetanus prophylaxis was not given Differential Diagnosis Differential diagnosis: Likely laceration, abrasion and avulsion of skin Critical Care Time Critical Care Time Critical Care Time: No Discharge Plan Discharge Clinical Impression: Finger laceration Patient Disposition: Home Condition: Stable Instructions: Antibiotic Form, Finger Laceration (ED) Additional Instructions: Keep wound clean, and dry. Apply antibiotic ointment twice daily. Cover with bandage as needed to prevent contamination. Clean with soap and water twice daily, but do not soak, take baths, or swim until wound is completely healed. Do not clean with hydrogen peroxide. If any signs of infection such as redness, swelling, increasing pain, drainage of purulent discharge, streaks up your extremity develop, seek medical attention immediately. Followup with your primary care provider in 10 days for suture removal. After sutures are removed, keep your scar out of the sun. You may use OTC silicone pad and/or scar massage with ointment (for 10-15 min a day) after one month. Talk to your doctor if you think you are developing a keloid. Patient Language: St Helenian Prescriptions: New amoxicillin-pot clavulanate 875-125 mg tablet 1 tablet PO Q12H 10 Days Qty: 20 0RF No Action aspirin [Adult Low Dose Aspirin] 81 mg tablet,delayed release (DR/EC) 81 mg PO DAILY atorvastatin [Lipitor] 40 mg tablet 40 mg PO DAILY valsartan 80 mg tablet 80 mg PO BID eszopiclone 2 mg tablet 2 mg PO .COMPLEX PRN Rx Instructions: 2 mg orally once per week PRN tadalafil [Cialis] 20 mg tablet 20 mg PO DAILY PRN (Reason: sexual activity) Qty: 20 2RF Rx Instructions: administer approximately 30min before sexual activity; do not use more than 1 dose per 24hrs fluticasone propionate 50 mcg/actuation spray,suspension See Rx Instructions .ROUTE .COMPLEX Qty: 16 3RF Dose Instruction: SHAKE LIQUID AND USE 1 SPRAY IN EACH NOSTRIL EVERY 12 HOURS Rx Instructions: SHAKE LIQUID AND USE 1 SPRAY IN EACH NOSTRIL EVERY 12 HOURS cetirizine 10 mg tablet See Rx Instructions .ROUTE .COMPLEX Qty: 90 2RF Dose Instruction: TAKE 1 TABLET BY MOUTH DAILY Rx Instructions: TAKE 1 TABLET BY MOUTH DAILY amlodipine [Norvasc] 5 mg tablet 5 mg PO DAILY Qty: 90 2RF cholecalciferol (vitamin D3) [Vitamin D3] 50 mcg (2,000 unit) tablet See Rx Instructions .ROUTE .COMPLEX Qty: 180 2RF Dose Instruction: TAKE 1 TABLET BY MOUTH EVERY MORNING AND TAKE 1 TABLET BY MOUTH EVERY EVENING Rx Instructions: TAKE 1 TABLET BY MOUTH EVERY MORNING AND TAKE 1 TABLET BY MOUTH EVERY EVENING chlorthalidone 25 mg tablet See Rx Instructions .ROUTE .COMPLEX Qty: 30 12RF Dose Instruction: TAKE 1 TABLET BY MOUTH DAILY Rx Instructions: TAKE 1 TABLET BY MOUTH DAILY levothyroxine 100 mcg tablet See Rx Instructions .ROUTE .COMPLEX Qty: 90 4RF Dose Instruction: TAKE 1 TABLET BY MOUTH DAILY Rx Instructions: TAKE 1 TABLET BY MOUTH DAILY Follow-up/Referrals: Yash Kang MD [Primary Care Provider, Internal Medicine] Time of Disposition: 14:06
== END 2025-03-21 14:23 | disposition home or self-care (01) ==
PROVIDERS: Emergency Provider Nurse Practitioner; PCP Emergency Medicine
DX: S61.213A Laceration without foreign body of left middle finger without damage to nail, initial encounter (principal); W27.1XXA Contact with garden tool, initial encounter; E78.5 Hyperlipidemia, unspecified; I10 Essential (primary) hypertension; E03.9 Hypothyroidism, unspecified; M17.0 Bilateral primary osteoarthritis of knee; G47.33 Obstructive sleep apnea (adult) (pediatric); E05.90 Thyrotoxicosis, unspecified without thyrotoxic crisis or storm; E78.00 Pure hypercholesterolemia, unspecified; I73.9 Peripheral vascular disease, unspecified; E55.9 Vitamin D deficiency, unspecified
CPT/HCPCS: 12001; 73140; 99213; G0463; J2003

== ENCOUNTER 2025-04-30 19:13 | Emergency (ER) | payer MEDICARE, SELFPAY ==
--- NOTE | ~2025-04-30 | CT_ITS ---
EXAMINATION: CT abdomen pelvis w con DATE: 05/01/2025 00:02 INDICATION: Left lower quadrant abdominal pain. TECHNIQUE: Computed tomography (CT) of the abdomen and pelvis was performed with 100 mL Omnipaque 350 intravenous contrast. Automated exposure control and iterative reconstruction technique were employed. The dose-length product was 1157.12 mGy-cm. COMPARISON: CT abdomen and pelvis 12/22/2021 FINDINGS: The visualized portions of lung bases demonstrate mild atelectasis. No pleural effusion. Cardiomegaly is noted. There are coronary artery calcifications. No pericardial effusion. There is a small sliding hiatal hernia. The liver, gallbladder, spleen, pancreas, and adrenal glands are normal. There is cortical thinning of the kidneys. There are likely changes of ablation of right kidney. There are cysts in left kidney measuring up to 4.1 cm. The prostate is severely enlarged. There are no dilated loops of bowel. The appendix is normal. There is an umbilical hernia containing fat. There are no pathologically enlarged lymph nodes. There is no free intraperitoneal fluid. There is severe lumbar spondylosis. There is mild chronic anterior wedging of multiple thoracic vertebral bodies. There are bridging endplate osteophytes at multiple levels in the thoracic spine, consistent with diffuse idiopathic skeletal hyperostosis (DISH). IMPRESSION: 1. Small sliding hiatal hernia. 2. Umbilical hernia containing fat. Reviewed, dictated and finalized at location E.
[2025-04-30 19:52] VITALS: BP 170/75; PULSE 65; RESP 18; TEMP 36.8; O2SAT 99
[2025-04-30 20:28] LABS: Hematocrit 40.6 % (42.0-52.0); Hemoglobin 13.6 g/dL (14.0-18.0); Immature Granulocyte Percent A 0.4 % (0-0.5); Lymphocytes Absolute Auto 2.37 K/mm3 (0.9-3.2); Mean Corpuscular HGB Conc 33.5 g/dl (32-36); Mean Corpuscular Hemoglobin 28.9 pg (26-34); Mean Corpuscular Volume 86.4 fl (80-100); Nucleated Red Blood Cells Absolute Auto 0.000 K/mm3 (0.0-0.012); Nucleated Red Blood Cells Perc 0.0 % (0.0-0.2); Platelet Count Result 241 k/mm3 (150-375); Red Blood Count 4.70 M/mm3 (4.6-6.20); White Blood Count 9.6 K/mm3 (4.5-10.0)
[2025-04-30 20:41] LABS: Alanine Aminotransferase 32 U/L (6-50); Albumin Level 4.1 g/dL (3.5-5.1); Alkaline Phosphatase 94 U/L (38-126); Anion Gap 7 mmol/L (4-12); Aspartate Amino Transferase 31 U/L (17-59); Bilirubin,Total 0.6 mg/dL (0.2-1.3); Blood Urea Nitrogen 31 mg/dL (9-20); Calcium 9.1 mg/dL (8.4-10.2); Carbon Dioxide 28 mmol/L (22-30); Chloride 101 mmol/L (98-107); Estimated CRCL calculation 91 ml/min; Estimated Glomerular Filt Rate > 60; Glucose 109 mg/dL (65-110); Lipase 58 U/L (23-300); Potassium 3.4 mmol/L (3.4-5.0); Sodium 136 mmol/L (137-145); Total Protein 7.4 g/dL (6.3-8.2)
[2025-04-30 22:30] VITALS: O2SAT 97
[2025-04-30 22:31] VITALS: BP 142/78; PULSE 57; PULSE 61; RESP 12; RESP 14; TEMP 36.6; O2SAT 97; O2SAT 98
[2025-04-30 22:39] LABS: Add Urine Microscopic? YES; Appearance Urine Cloudy (Clear); Glucose Urine UA Negative (Negative); Leukocyte Esterase Ur Negative LEU/UL (Negative); Nitrate Urine Negative (Negative); Non Pathogenic Casts 0-2; Specific Grav Ur 1.026 (1.001-1.035)
[2025-04-30 22:55] VITALS: PULSE 60; RESP 16; O2SAT 97
--- OUTSIDE RECORDS SUMMARY | 2025-04-30 23:48 | XMS_ITS | Clinical Summary ---
Author Organization [facility] Address [address] [place] [id number] Phone Care Team Providers Care Silk Screen Cutter Name Role Phone Yash Kang MD Primary Care Provider [phone] Allergies Active Allergy Reactions Criticality Noted Date Comments Clonidine Dizziness,Unknown Low 11/10/2021 Dust Mite Extract Cough,Unknown Low 12/21/2020 Other reaction(s): Unknown Sniffing, Sneezing, Tearing Sniffing, Sneezing, Tearing Sniffing, Sneezing, Tearing Metoprolol 10/01/2021 Other reaction(s): Fatigue, Other (See Comments) Also bradycardia during sleep Also bradycardia during sleep Medications atorvastatin (LIPITOR) 40 MG tablet 09/02/2021 Active cetirizine (ZyrTEC) 10 MG tablet Take 10 mg by mouth 1 (one) time each day 09/15/2021 Active D3-1000 25 MCG (1000 UT) capsule 08/31/2021 Active Cholecalciferol 50 MCG (2000 UT) capsule Take 2,000 Units by mouth 11/30/2020 Active gabapentin (NEURONTIN) 300 MG capsule 11/01/2021 Active levothyroxine (SYNTHROID) 100 MCG tablet Take 100 mcg by mouth 1 (one) time each day 11/05/2021 Active hydroCHLOROthiaz darlene (HYDRODIURIL) 25 MG tablet Take 1 tablet (25 mg total) by mouth 2 (two) times a day 60 tablet 11 11/10/2021 Active telmisartan (MICARDIS) 40 MG tablet Take 1 tablet (40 mg total) by mouth 1 (one) time each day 30 tablet 11 02/17/2022 Active Active Problems Problem Noted Date Diagnosed Date Hypothyroidism 02/11/2022 Overview (02/11/2022): Last Assessment & Plan: Continue levothyroxine 100 mcg daily Essential hypertension 11/10/2021 Obstructive sleep apnea syndrome 11/10/2021 Mixed hyperlipidemia 08/21/2021 Overview (02/11/2022): Last Assessment & Plan: Assessment: Goal LDL < 70 given coronary artery calcificatoin Plan: : Diagnostic Testing: obtain most recent lipid panel Lipid lowering medications: continue atorvastatin, recommended increasing dose to 40 mg, but patient would prefer lifestyle modifications first Lifestyle modifications: diet, regular aerobic exercise and weight loss Vitamin D deficiency 07/20/2021 Overview (02/11/2022): Last Assessment & Plan: As above, I did recommend increasing the vitamin-D dosage Hypersomnia 04/20/2021 Overview (02/11/2022): Last Assessment & Plan: The hypersomnia has improved since starting the chin strap with the CPAP unit and using caffeine. He does have Nuvigil to use on a p.r.n. basis. His vitamin-D level was low and he is going to talk with his primary care physician about increasing his vitamin-D dosage. Aneurysm of ascending aorta 12/21/2020 Overview (02/11/2022): Last Assessment & Plan: I have personally [...] his current regimen including losartan and hydrochlorothiazide. Last Assessment & Plan: Noted incidentally on CT imaging, evaluated by CTS (Dr. Maddox) with recommendations for continued monitoring, BP control, no surgical intervention at this time. Last Assessment & Plan: Maximal diameter of ascending thoracic aorta is 4.4 cm at level of main pulmonary arterial trunk on CT chest 07/2021 Repeat in jul bp control Statin therapy Asa continued Immunizations Immunization Administration Dates Next Due Moderna Sars-cov-2 Vaccination 10/15/2020 Tdap 11/09/2020 Family History Medical History Relation Comments Hypertension Neg Hx Social History Tobacco Use Types Packs/Day Years Used Date Smoking Tobacco: Never Smokeless Tobacco: Never Alcohol Use Standard Drinks/Week Comments Yes 0 (1 standard drink = 0.6 oz pur e alcohol) rare Comments Unknown Sex and Gender Information Value Date Recorded Sex Assigned at Not on file Legal Sex Female 8:51 AM MDT Gender Identity Not on file Sexual Orientation Not on file Last Filed Vital Signs Vital Sign Reading Time Taken Comments Blood Pressure 126/62 02/17/2022 10:58 AM CDT Pulse 60 02/17/2022 10:58 AM CDT Temperature 36.2 C (97.1 F) 02/17/2022 10:58 AM CDT Respiratory Rate - - Oxygen Saturation - - Inhaled Oxygen Concentration - - Weight 112 kg (248 lb) 02/17/2022 10:58 AM CDT Height 190.5 cm (6' 3) 02/17/2022 10:58 AM CDT Body Mass Index 31 02/17/2022 10:58 AM CDT Plan of Treatment Health Maintenance Due Date Last Done Comments Pneumococcal PPSV23/PCV13 65 + Years / Low and Medium Risk (1 of 2 - PCV) 2005 COVID-19 Vaccine (3 - 2024- season) 03/17/202505/2021, 10/15/2020 Influenza Vaccine (#1) 2025 Insurance [facility] Care Teams Silk Screen Cutter Relationship Specialty Start Date End Date Yash Kang MD [address] [place] [id number] PCP - General Internal Medicine 11/09/21
--- OUTSIDE RECORDS SUMMARY | 2025-04-30 23:48 | XMS_ITS | Clinical Summary ---
Author Organization [facility] [place] [facility] Address [address] [place] [address] Care Team Providers Care Agricultural And Forestry Supervisor Name Role Phone Yash Kang MD Primary Care Provide r Patricio Johnson MD Unavailable [phone] Allergies Active Allergy Reactions Criticality Noted Date [...] (08/30/2024): Added automatically from request for surgery [id number] Restless leg syndrome 02/28/2022 Assessment & Plan (03/25/2025 10:08 AM CDT): He is currently not experiencing RLS symptoms and is on no medication for the RLS. Assessment & Plan (08/15/2024 3:59 PM SALES DEVELOPMENT MANAGER): The RLS symptoms are not currently active and he is on no medication for the RLS. Assessment & Plan (06/27/2024 3:42 PM SALES DEVELOPMENT MANAGER): He is not having any RLS symptoms at this time and is not required gabapentin recently. Assessment & Plan (06/06/2024 4:10 PM SALES DEVELOPMENT MANAGER): The RLS symptoms are controlled with exercise and stretching of his limbs. He has not required gabapentin for a long period of time Assessment & Plan (12/14/2023 3:44 PM CDT): He does not have RLS symptoms as long as his limbs are not cold. He is not using gabapentin routinely. Assessment & Plan (06/13/2023 4:03 PM SALES DEVELOPMENT MANAGER): He states that the RLS occurs only [...] Vitamin D deficiency 07/20/2021 Assessment & Plan (03/25/2025 10:08 AM CDT): The patient continues on vitamin-D supplementation. Assessment & Plan (08/15/2024 4:00 PM SALES DEVELOPMENT MANAGER): He continues on vitamin-D supplementation. Assessment & Plan (06/27/2024 3:41 PM SALES DEVELOPMENT MANAGER): He continues on vitamin-D supplementation. Assessment & Plan (06/06/2024 4:09 PM SALES DEVELOPMENT MANAGER): He did have his vitamin-D level drawn and was 42.5 and he is taking a total of 4000 units of vitamin-D per day. Assessment & Plan (12/14/2023 3:43 PM CDT): He continues on [id number] vitamin-D supplementation and I will check a vitamin-D level. Assessment & Plan (06/13/2023 4:03 PM SALES DEVELOPMENT MANAGER): His last vitamin-D level was from February 2023 and was within normal limits. Assessment & Plan (02/28/2023 3:43 PM CDT): The patient continues to supplement vitamin-D 4000 units daily. I will order a vitamin-D level since he is not had 1 performed recently. Assessment & Plan (02/28/2022 2:03 PM CDT): Continues with vitamin-D supplementation. Assessment & Plan (07/20/2021 3:18 PM SALES DEVELOPMENT MANAGER): As above, I did recommend increasing the vitamin-D dosage Primary insomnia 07/20/2021 Assessment & Plan (03/25/2025 10:08 AM CDT): He is still using 1-2 mg of Lunesta 2 or 3 times per month for insomnia. Assessment & Plan (08/15/2024 3:59 PM SALES DEVELOPMENT MANAGER): The patient continues to practice cognitive behavioral therapy for insomnia but he is using 1-2 mg of Lunesta and this is working well for him. I have refilled his medication for 1 month with 5 refills. Assessment & Plan (06/27/2024 3:42 PM SALES DEVELOPMENT MANAGER): Hopefully, the patient's insomnia will continue to improve since he stopped the supplements and I will plan to decrease the dose of the Nuvigil. If his insomnia persists, that he did tell him that he could try Lunesta 2 mg p.o. q.h.s. and he will follow up here in 6 weeks. Assessment & Plan (06/06/2024 4:10 PM SALES DEVELOPMENT MANAGER): He continues to use Z Quil gummies at bedtime for his insomnia Assessment & Plan (12/14/2023 3:44 PM CDT): His insomnia is currently under reasonable control with a Z Quil gummies. Assessment & Plan (06/13/2023 4:03 PM SALES DEVELOPMENT MANAGER): He still has episodes of insomnia and [...] restriction. Assessment & Plan (07/20/2021 3:17 PM SALES DEVELOPMENT MANAGER): I did discuss sleep restriction with the patient. I have also given him the 2 brochures that are published by the [place] [employer] regarding sleep hygiene and understanding insomnia. Hypersomnia 04/20/2021 Assessment & Plan (03/25/2025 10:09 AM CDT): His energy level has been doing fairly well as long as he gets a full night's sleep. He is on no stimulant medication at this time. Assessment & Plan (08/15/2024 3:59 PM SALES DEVELOPMENT MANAGER): The patient is no longer requiring Nuvigil since he is sleeping for longer periods at night. Assessment & Plan (06/27/2024 3:41 PM SALES DEVELOPMENT MANAGER): The patient is going to buy a pill splitter and try to take approximately 40 mg of the Nuvigil and use small amounts of caffeine to keep him awake during the day. Assessment & Plan (06/06/2024 4:09 PM SALES DEVELOPMENT MANAGER): The patient continues to benefit from Nuvigil 75 mg p.o. q.a.m. and he is supplementing this with caffeine. Assessment & Plan (12/14/2023 3:43 PM CDT): I will refill his Nuvigil which he is using 1/4 of a 150 mg tablet once every 2- 3 weeks for daytime hypersomnia. Assessment & Plan (06/13/2023 4:03 PM SALES DEVELOPMENT MANAGER): He is using 37.5 mg of Nuvigil [...] supplementation Assessment & Plan (07/20/2021 3:17 PM SALES DEVELOPMENT MANAGER): The hypersomnia has improved since starting the [...] BRYAN (obstructive sleep apnea) Assessment & Plan (03/25/2025 10:09 AM CDT): The patient continues to benefit from CPAP at 9 cm water pressure for ongoing symptoms BRYAN. His DME supplier is [employer]. He will follow up here in 1 year. Assessment & Plan (08/15/2024 3:59 PM SALES DEVELOPMENT MANAGER): The patient continues to benefit from CPAP at 9 cm water pressure for ongoing symptoms of BRYAN. His DME supplier is [employer]. He will follow up here in 6 months. Assessment & Plan (06/27/2024 3:40 PM SALES DEVELOPMENT MANAGER): The patient continues to benefit from CPAP at 9 cm water pressure for ongoing symptoms BRYAN. DME supplier is [employer]. Assessment & Plan (06/06/2024 4:08 PM SALES DEVELOPMENT MANAGER): The patient continues to benefit from CPAP [...] months. Assessment & Plan (06/13/2023 4:02 PM SALES DEVELOPMENT MANAGER): The patient continues to benefit from CPAP [...] [employer] Assessment & Plan (07/20/2021 3:16 PM SALES DEVELOPMENT MANAGER): The patient continues to benefit from the [...] apnea. The patient denied need for supplies. [employer] company [employer]. The patient is benefitting from CPAP therapy. Assessment & Plan (02/11/2021 9:40 AM CDT): Continue home CPAP Assessment & Plan (02/10/2021 5:40 PM CDT): Continue home CPAP Encounters Date Type Department Care Team Description 03/25/2025 9:30 AM CDT Office Visit [facility] Pul[facility] [address] [address] Anant Mccloud MD BRYAN (obstructive sleep apnea) (Primary Dx); Restless leg syndrome; Primary insomnia; Vitamin D deficiency; Hypersomnia from Last 3 Months Immunizations Immunization Administration [...] on file Legal Sex Male 1:28 AM SALES DEVELOPMENT MANAGER Gender Identity Not on file Sexual Orientation Not on file 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 Not on file Not on file Obstetrics History Last Filed Vital Signs Vital Sign Reading Time Taken Comments Blood Pressure 120/78 03/25/2025 9:31 AM CDT Pulse 13 03/25/2025 9:31 AM CDT Temperature 36.3 C (97.4 F) 03/25/2025 9:31 AM CDT Respiratory Rate 13 03/25/2025 9:31 AM CDT Oxygen Saturation 98% 03/25/2025 9:31 AM CDT Inhaled Oxygen Concentration - - Weight 112.5 kg (248 lb) 03/25/2025 9:31 AM CDT Height 190.5 cm (6' 3) 03/25/2025 9:31 AM CDT Body Mass Index 31 03/25/2025 9:31 AM CDT Plan of Treatment Health Maintenance Due Date Last Done Comments Colon Cancer Screening-Colonoscopy 1955 Depression Screening 1955 Hepatitis C Screening 1955 Prostate Cancer Screening-PSA 1955 Hepatitis B Screening 1973 Pneumococcal vaccine 65+ (1 of 1 - PCV) 2005 Zoster Vaccine (1 of 2) 2005 Well Visit 65+ 2020 Fall Risk Assessment 02/11/2022 02/11/2021 Covid-19 Vaccine ( - season) 2025 06/16/2021, 11/24/2020, 10/15/2020 Influenza Vaccine (#1) 2025 DTaP/Tdap/Td Vaccine (2 - Td or Tdap) 11/09/2030 Insurance MEDICARE [facility] MEDICARE MEDICARE [facility] Advance Directives For more information, please contact: [phone] * Full Code (Latest Code Status on File) Date Activated Date Inactivated Comments 02/10/2021 3:36 PM 02/11/2021 2:36 PM Care Teams Agricultural And Forestry Supervisor Relationship Specialty Start Date End Date Yash Kang MD [address] [place] [address] PCP - General Emergency Medicine 11/22/19 Patricio Johnson MD [address] [address] Referring Physician Neurology 08/21/24
--- OUTSIDE RECORDS SUMMARY | 2025-04-30 23:48 | XMS_ITS | Clinical Summary ---
Author Organization [facility] Address [address] [place] [address] Care Team Providers Care Private Tutors And Teachers Name Role Phone Yash Kang MD Primary Care Provider + [phone] Allergies Active Allergy Reactions Criticality Noted Date [...] 37.2 C (99 F) 07/19/2021 2:35 PM TICK SEWER Respiratory Rate - - Oxygen Saturation 98% 11/01/2021 11: 03 AM CDT Inhaled Oxygen Concentration - - Weight 114.9 kg (253 lb 3.2 oz) 022 11:03 AM CDT Height 193 cm (6' 4) 07/19/2021 2:35 PM TICK SEWER Body Mass Index 30.82 07/19/2021 2:35 PM TICK SEWER Plan of Treatment Health Maintenance Due Date Last Done Comments COLORECTAL SCREENING 2000 Colorectal Cancer Screening 2000 FIT-DNA Q 3 years 2000 FIT/FOBT Q 1 year 2000 Flex Sig/CT Colonography Q 5 years 2000 PNEUMOCOCCAL VACCINE 50+ YEA RS (1 of 1 - PCV) 2005 ZOSTER VACCINE (1 of 2) 2005 INFLUENZA VACCINE (#1) 2025 COVID-19 Vaccine (3 - 2024- season) 03/17/202505/2021, 10/15/2020 RSV VACCINE (60+ or ) (1 - 1-dose 75+ series) 2030 DTAP/TDAP/TD VACCINES (2 - Td or Tdap) 11/09/[address] [facility] [employer] PPO [id number] Care Teams Private Tutors And Teachers Relationship Specialty Start Date End Date Yash Kang MD [address] [place] [address] PCP - General Internal Medicine 03/15/21
--- OUTSIDE RECORDS SUMMARY | 2025-04-30 23:48 | XMS_ITS | Clinical Summary ---
Author Organization [facility] Address [address] [place] [address] Care Team Providers Care Fieldwork Coordinator Name Role Phone Yash Kang MD Primary Care Provider [phone] Source Comments [facility],non-owned Affiliates and Associated Physician Practices is amultiple site organization consisting of ambulatory clinics and hospital sitesin [place], [place], [place] and [place]. This disclosure is being madepursuant to the Care Everywhere program and may not contain all information available regarding this patient. Last updated 18.[facility] Allergies Active Allergy Reactions Criticality Noted Date [...] Comments Blood Pressure 148/79 09/14/2023 8:55 AM TAKE AWAY ATTENDANT Pulse 50 09/14/2023 8:55 AM TAKE AWAY ATTENDANT Temperature - - Respiratory Rate 12 09/14/2023 8:55 AM TAKE AWAY ATTENDANT Oxygen Saturation - - Inhaled Oxygen Concentration - - Weight 112 kg (247 lb) 09/14/2023 8:55 AM TAKE AWAY ATTENDANT Height 193 cm (6' 4) 09/14/2023 8:55 AM TAKE AWAY ATTENDANT Body Mass Index 30.07 09/14/2023 8:55 AM TAKE AWAY ATTENDANT Plan of Treatment Health Maintenance Due Date [...] of 2) 2005 SCREENING FOR DIABETES 09/14/2023 DEPRESSION SCREENING 07/17/2024 COVID-19 VACCINE (3 - 2024-2 6 season) 2025 11/24/2020, 10/15/2020 INFLUENZA VACCINE (#1) 2025 Respiratory Syncytial Virus (RSV) Vaccine Pt: [...] complete this topic Insurance ANTHEM Care Teams Fieldwork Coordinator Relationship Specialty Start Date End Date Yash Kang MD [address] [place] [id number] PCP - General 05/07/19
[2025-05-01] VITALS (7 sets, daily range): BP systolic 141–148; BP diastolic 69–75; PULSE 52–62; RESP 13–21; O2SAT 94–99
--- NOTE | 2025-05-01 01:32 | ED.ABDPAIN ---
HPI - Abdominal Pain General Chief Complaint: Abdominal Pain Stated Complaint: LLQ pain x months Time Seen by Provider: 04/30/25 22:56 Source: patient Mode of arrival: ambulatory Limitations: no limitations History of Present Illness HPI narrative: Patient is a 69 y/o male who presents to the ED with c/o left lower abdominal pain. Patient reports having pain in his left lower back, left lower abdomen, left groin the past 2-3 months. States pain is worse with bending over, squatting, certain movements. Has not tried anything for pain. Does not significant radiate into LLE. Does report that he has been constipated over the past 2 months. Has not taken anything for this, has been trying to increase his fiber intake. Denies nausea, vomiting, dysuria, hematuria, difficulty urinating, history of kidney stones. Related Data Home Medications ?Medication ?Instructions ?Recorded ?Confirmed ?Last Taken ?Type aspirin 81 mg tablet,delayed 81 mg PO DAILY 01/24/23 01/13/25 Unknown History release (Adult Low Dose Aspirin) valsartan 80 mg tablet 80 mg PO BID 07/25/24 01/13/25 Unknown History atorvastatin 40 mg tablet (Lipitor) 40 mg PO DAILY 09/16/24 01/13/25 Unknown History eszopiclone 2 mg tablet 2 mg PO .COMPLEX PRN 01/13/25 01/13/25 Unknown History Allergies Allergy/AdvReac Type Severity Reaction Status Date / Time clonidine Allergy Intermediate low pulse Verified 04/09/25 15:00 house dust mite Allergy Intermediate sinus Verified 04/09/25 15:00 drainage gabapentin AdvReac Intermediate Hyperactive Verified 04/09/25 15:00 metoprolol AdvReac Intermediate Hypotension Verified 04/09/25 15:00 Review of Systems Review of Systems: All systems reviewed & are unremarkable except as noted in HPI. All systems reviewed & are unremarkable except as noted in HPI and below PMFSH Past Medical History Medical History Left hamstring muscle strain Left knee DJD HLD (hyperlipidemia) Sprain of right foot Disorder of the skin and subcutaneous tissue, unspecified Peroneal tendinitis of right lower extremity Right foot strain Insomnia Sinus congestion HTN (hypertension) Right flank pain Vitamin D2 deficiency Bilateral carotid bruits Acute midline low back pain without sciatica Acute rhinosinusitis Benign paroxysmal positional vertigo due to bilateral vestibular disorder Body mass index [BMI] 27.0-27.9, adult (10/08/15) Body mass index [BMI] 28.0-28.9, adult (11/23/15) Body mass index [BMI] 29.0-29.9, adult (07/08/16) Body mass index [BMI] 30.0-30.9, adult (03/31/17) Body mass index [BMI] 31.0-31.9, adult (09/07/17) Chronic pain of left knee Chronic pain of right knee Constipation Cough THOMPSON (dyspnea on exertion) Dependence on other enabling machines and devices Essential (primary) hypertension Flank pain Hypothyroidism, unspecified Insomnia, unspecified Mixed hyperlipidemia BRYAN on CPAP Olecranon bursitis, right elbow Osteoarthritis of left knee Other chronic pain Other hyperlipidemia Other tear of lateral meniscus, current injury, right knee, initial encounter Pressure sensation in left ear Primary osteoarthritis of right knee Right forearm pain Right otitis media Right wrist pain Ringing in left ear Sore throat Subconjunctival hemorrhage of left eye Testicular hypofunction Thyroid nodule Vitamin D deficiency Hyperthyroidism Wears glasses Arthritis of shoulder region, left Cervical spondylosis with radiculopathy Shoulder pain Cervical radiculopathy Polyneuropathy Onychomycosis due to dermatophyte Renal cell carcinoma 1.5 cm right kidney mass Abdominal pain High cholesterol Sleep apnea BRYAN (obstructive sleep apnea) Peripheral arterial disease Toe fracture, right Rib pain Hand pain Hand injury Aortic aneurysm Head injury Right kidney mass Skin lesion IT band syndrome Effusion, left knee Degenerative joint disease of knee Bilateral carotid bruits Headaches due to old head injury Chest pain Hypertension Neck pain Thyroid goiter Hypothyroidism (acquired) Screening PSA (prostate specific antigen) HLD (hyperlipidemia) Lateral meniscal tear Surgical History Surgical History History of kidney surgery Cryoablation renal cell carcinoma History of arthroscopy of right knee History of laminectomy Family History Family History Father Kidney malignancy Mother Broken heart syndrome Sibling OD on pain killers from untreated back injury. Sibling No problems noted. Social History Social History Social History: Patient exercises 6-12 hours per week. 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 HEAD: Normocephalic, atraumatic. RESPIRATORY: Airway patent, respirations nonlabored. Clear to auscultation bilaterally, no rales, rhonchi, wheezing. CARDIOVASCULAR: Regular rate and rhythm without murmurs, rubs, or gallops. ABDOMINAL: Soft, mild to palpation left lower quadrant, left lateral lower abdomen, no rebound, nondistended. Normoactive BS. MUSCULOSKELETAL: Moves all extremities. No gross deformities. SKIN: Warm, dry, normal color. NEURO: A&O X3. Speech clear. Steady gait. No ataxic movements. PSYCHIATRIC: Appropriate mood and affect. Normal interaction. Course Vital Signs Vital signs: Vital Signs Temperature 98.2 F 04/30/25 19:52 Pulse Rate 65 04/30/25 19:52 Respiratory Rate 18 04/30/25 19:52 Blood Pressure 170/75 H 04/30/25 19:52 Pulse Oximetry 99 04/30/25 19:52 Oxygen Delivery Room Air 04/30/25 19:52 Temperature 97.9 F 04/30/25 22:31 Pulse Rate 56 L 05/01/25 01:46 Respiratory Rate 18 05/01/25 01:46 Blood Pressure 141/69 H 05/01/25 01:46 Pulse Oximetry 97 05/01/25 01:46 Oxygen Delivery Room Air 04/30/25 19:52 MDM - Abdominal Pain MDM Narrative Medical decision making narrative: Patient presented to ED with 2-3 month history of left lower abdominal pain, history of constipation. Has not taken anything for pain or constipation. Vital signs are stable upon arrival. Patient is in no acute distress. Laboratory studies are unremarkable. No leukocytosis or significant anemia. No electrolyte derangement. Stable kidney function. UA is clear. CT scan of abdomen/pelvis was obtained showing large volume stool, no bowel obstruction. No other significant abnormalities. No ureterolithiasis. Discussed lab and imaging findings this patient. Discussed management of constipation, continued management of pain. Recommended patient have close follow-up with PCP for further evaluation. Given strict return precautions. Patient is in agreement with plan, feels comfortable going home. Discharged in stable condition. Medical Records Attestation: I reviewed the patient's medical records. Lab Data Attestation: I reviewed the patient's lab results. 04/30/25 20:20 04/30/25 20:20 Labs: Lab Results 04/30/25 04/30/25 Range/Units 20:20 22:27 WBC 9.6 (4.5-10.0) K/mm3 RBC 4.70 (4.6-6.20) M/mm3 Hgb 13.6 L (14.0-18.0) g/dL Hct 40.6 L (42.0-52.0) % MCV 86.4 (80-100) fl MCH 28.9 (26-34) pg MCHC 33.5 (32-36) g/dl RDW 13.6 (11.5-14.5) % Plt Count 241 (150-375) k/mm3 MPV 9.4 (7.4-10.4) fl Immature Gran % (Auto) 0.4 (0-0.5) % Neut % (Auto) 64.2 (45.5-73.1) % Lymph % (Auto) 24.7 (18.3-44.2) % Gove % (Auto) 6.9 (2.6-8.5) % Eos % (Auto) 3.3 (0-4.4) % Baso % (Auto) 0.5 (0.2-1.2) % Lymph # (Auto) 2.37 (0.9-3.2) K/mm3 Gove # (Auto) 0.7 H (0.1-0.6) K/mm3 Eos # (Auto) 0.3 (0-0.3) K/mm3 Baso # (Auto) 0.1 (0.0-0.1) K/mm3 Abs Immat Gran (auto) 0.04 H (0.00-0.031) K/mm3 Absolute Neuts (auto) 6.1 (1.3-6.7) K/mm3 Absolute Nucleated RBC 0.000 (0.0-0.012) K/mm3 Nucleated RBC % 0.0 (0.0-0.2) % Sodium 136 L (137-145) mmol/L Potassium 3.4 (3.4-5.0) mmol/L Chloride 101 (98-107) mmol/L Carbon Dioxide 28 (22-30) mmol/L Anion Gap 7 (4-12) mmol/L BUN 31 H (9-20) mg/dL Creatinine 0.82 (0.7-1.3) mg/dL Estim Creat Clear Calc 91 ml/min Estimated GFR > 60 (59 - ) Glucose 109 (65-110) mg/dL Calcium 9.1 (8.4-10.2) mg/dL Total Bilirubin 0.6 (0.2-1.3) mg/dL AST 31 (17-59) U/L ALT 32 (6-50) U/L Alkaline Phosphatase 94 (38-126) U/L Total Protein 7.4 (6.3-8.2) g/dL Albumin 4.1 (3.5-5.1) g/dL Lipase 58 (23-300) U/L Urine Color Yellow (Yellow) Urine Appearance Cloudy H (Clear) Urine pH 5.0 (5.0-9.0) Ur Specific Clifton 1.026 (1.001-1.035) Urine Protein Negative (Negative) mg/dL Urine Glucose (UA) Negative (Negative) mg/dL Urine Ketones Negative (Negative) mg/dL Ur Blood (Man) Negative (Negative) Urine Nitrate Negative (Negative) Urine Bilirubin Negative (Negative) Urine Urobilinogen 1.0 (<2.0) mg/dL Leukocyte Esterase Rfl Negative (Negative) CANDIDO/UL Urine RBC 0-2 (0-2) /hpf Urine WBC 0-5 (0-3) /hpf Ur Squamous Epith Cells None seen (Few) /hpf Urine Bacteria None seen /hpf Urine Casts 0-2 Imaging Data Attestation: I personally reviewed and interpreted this imaging study as follows: Radiologist's impression: STAT RAD CT abd/pelvis: Impression: Large amount of stool. No bowel obstruction. Incidental findings: Comparison 12/22/2021. Mild cardiomegaly. Left renal cyst. Changes from prior cryoablation in the right kidney. Small sliding-type hiatal hernia. Small umbilical containing fat. Prostatomegaly. Large amount of stool in the colon. Discharge Plan Discharge Clinical Impression: Left lower quadrant abdominal pain Constipation Qualifiers: Constipation type: unspecified constipation type Qualified Code(s): K59.00 - Constipation, unspecified Patient Disposition: Home Condition: Stable Instructions: Antibiotic Form, Constipation (ED), High Fiber Diet (ED), Abdominal Pain (ED) Additional Instructions: Recommend MiraLax and Dulcolax up to twice daily over the next 1 week for constipation. If you develop diarrhea, you may decrease this to once per day or every other day. Stay very well hydrated. Recommend plenty of fluids. Recommend high-fiber diet. You may also take Tylenol/ibuprofen as needed for pain. Follow-up closely with your primary care doctor for further evaluation. Return to the ED if you experience worsening or severe symptoms, severe constipation, severe pain, unable to keep down food or drink, fevers, rectal bleeding, dark black stool, difficulty urinating, or any other symptoms of concern. Patient Language: Hebrew Prescriptions: No Action aspirin [Adult Low Dose Aspirin] 81 mg tablet,delayed release (DR/EC) 81 mg PO DAILY atorvastatin [Lipitor] 40 mg tablet 40 mg PO DAILY valsartan 80 mg tablet 80 mg PO BID eszopiclone 2 mg tablet 2 mg PO .COMPLEX PRN Rx Instructions: 2 mg orally once per week PRN tadalafil [Cialis] 20 mg tablet 20 mg PO DAILY PRN (Reason: sexual activity) Qty: 20 2RF Rx Instructions: administer approximately 30min before sexual activity; do not use more than 1 dose per 24hrs fluticasone propionate 50 mcg/actuation spray,suspension See Rx Instructions .ROUTE .COMPLEX Qty: 16 3RF Dose Instruction: SHAKE LIQUID AND USE 1 SPRAY IN EACH NOSTRIL EVERY 12 HOURS Rx Instructions: SHAKE LIQUID AND USE 1 SPRAY IN EACH NOSTRIL EVERY 12 HOURS cetirizine 10 mg tablet See Rx Instructions .ROUTE .COMPLEX Qty: 90 2RF Dose Instruction: TAKE 1 TABLET BY MOUTH DAILY Rx Instructions: TAKE 1 TABLET BY MOUTH DAILY amlodipine [Norvasc] 5 mg tablet 5 mg PO DAILY Qty: 90 2RF cholecalciferol (vitamin D3) [Vitamin D3] 50 mcg (2,000 unit) tablet See Rx Instructions .ROUTE .COMPLEX Qty: 180 2RF Dose Instruction: TAKE 1 TABLET BY MOUTH EVERY MORNING AND TAKE 1 TABLET BY MOUTH EVERY EVENING Rx Instructions: TAKE 1 TABLET BY MOUTH EVERY MORNING AND TAKE 1 TABLET BY MOUTH EVERY EVENING chlorthalidone 25 mg tablet See Rx Instructions .ROUTE .COMPLEX Qty: 30 12RF Dose Instruction: TAKE 1 TABLET BY MOUTH DAILY Rx Instructions: TAKE 1 TABLET BY MOUTH DAILY levothyroxine 100 mcg tablet See Rx Instructions .ROUTE .COMPLEX Qty: 90 4RF Dose Instruction: TAKE 1 TABLET BY MOUTH DAILY Rx Instructions: TAKE 1 TABLET BY MOUTH DAILY Follow-up/Referrals: Yash Kang MD [Primary Care Provider, Internal Medicine] Time of Disposition: 01:43
== END 2025-05-01 01:50 | disposition home or self-care (01) ==
PROVIDERS: Emergency Medicine; Emergency Provider Physician Assistant; PCP Emergency Medicine
DX: R10.32 Left lower quadrant pain (principal); K59.00 Constipation, unspecified; I10 Essential (primary) hypertension; I73.9 Peripheral vascular disease, unspecified; E55.9 Vitamin D deficiency, unspecified; E03.9 Hypothyroidism, unspecified; E78.2 Mixed hyperlipidemia; E05.90 Thyrotoxicosis, unspecified without thyrotoxic crisis or storm; G47.33 Obstructive sleep apnea (adult) (pediatric); G62.9 Polyneuropathy, unspecified; M17.0 Bilateral primary osteoarthritis of knee; M19.012 Primary osteoarthritis, left shoulder; Z85.528 Personal history of other malignant neoplasm of kidney; Z79.82 Long term (current) use of aspirin; Z79.899 Other long term (current) drug therapy
CPT/HCPCS: 36415; 74177; 80053; 81001; 83690; 85025; 99284; Q9967